=== PATIENT | male | born 1985 | race Caucasian/White ===

== ENCOUNTER 2016-07-09 12:19 | Emergency (ER) | payer MEDICARE, MEDICAID ==
[~2016-07-09 12:19] MED LIST: Acetaminophen/Hydrocodone PO; CLEO300C2 PO; DEXA4TA PO; GABA300C3 PO
[2016-07-09] MEDS ORDERED: DERMABOND TOPICAL SKIN ADHESIVE As Ordered ONE (12:59)
[2016-07-09] MEDS ORDERED: LIDOCAINE 2% W/EPIN INJ 20ML **PRES FREE As Ordered ONE (12:59)
[2016-07-09] MEDS ORDERED: NAPROXEN 250 MG TAB As Ordered ONE (12:59)
--- NOTE | 2016-07-09 13:40 | EDDOCDS ---
Physician Documentation [facility] Name: Refugio Murphy Age: 31 yrs Sex: Male : 1985 Arrival Date: 07/09/2016 Time: 12:19 Bed I6 / 28 Private MD: [facility], [place] - Adults Disposition: 07/09/16 13:24 Discharged to Home/Self Care. Impression: Laceration without foreign body of left upper arm, Laceration without foreign body of left forearm. - Condition is Stable. - Discharge Instructions: Stitches, Norma, or Adhesive Wound Closure. - Prescriptions for Ibuprofen 800 mg Oral Tablet - take 1 tablet by ORAL route every 8 hours As needed take with food; 30 tablet. - Medication Reconciliation, Local Pharmacy Hours form. - Follow up: Center - Adults [facility]; When: 1 - 2 days; Reason: Recheck today's complaints, Continuance of care. Follow up: Emergency Department; Reason: Worsening of conditions. - Problem is new. - Symptoms have improved. Historical: - Allergies: tylenol (Vomit); - Home Meds: 1. none - PMHx: GERD; - PSHx: Nerve Relocation; - Social history: Smoking status: Electronic cigarettes No barriers to communication noted, The patient speaks fluent Tongan, Speaks appropriately for age. - Family history: Not pertinent. - : The pt / caregiver states he / she is not on anticoagulants. Home medication list is obtained from the patient, Unable to Verify Home Med List with the patient / caregiver. - Exposure Risk Screening:: None identified. Vital Signs: 07/09 12:21 BP 132 / 70 RA Sitting (auto/reg); Pulse 63; Resp 18; Temp 97.4; Pulse Ox 100% on R/A; jrd Weight 83.46 kg / 184 lbs; Height 5 ft. 11 in. (180.34 cm); Pain 5/10; 13:28 BP 98 / 54; Pulse 46; Resp 18; Temp 98.5(TE); Pulse Ox 99% on R/A; Pain 0/10; jml1 12:21 Body Mass Index 25.66 (83.46 kg, 180.34 cm) jrd Procedures: 13:17 Wound care to laceration located on left arm was cleaned with Hibiclens, irrigated with ef1 normal saline, dressed with Neosporin, 4X4s, Patient tolerated well. 13:19 Laceration repair:. ef1 13:22 Laceration repair:. ef1 Laceration: 13:19 Wound Repair of 1cm ( 0.4in ) full thickness laceration to dorsal aspect of left ef1 forearm. Distal neuro/vascular/tendon intact. Anesthesia: Local anesthetic administered with 4 mls of 1% lidocaine w/ Epi. Wound prep: Moderate cleansing by nurse. Skin closed with 5 x 5-0 Nylon using Simple interrupted sutures. Dressed with Bacitracin, 4x4's. Patient tolerated well. 13:22 Wound Repair of 1cm ( 0.4in ) full thickness laceration to left bicep. Distal ef1 neuro/vascular/tendon intact. Anesthesia: None with None. Wound prep: Moderate cleansing by provider. Skin closed with thin layer Dermabond using sterile technique. Dressed with 4x4's. Patient tolerated well. MDM: 12:48 Lidocaine-Epinephrine 2 %-1:100,000 10 ml Infiltration once; to bedside ordered. ef1 12:48 Wound Care ordered. ef1 12:48 Naproxen 500 mg PO once; administer with food or milk ordered. ef1 12:49 Dermabond to bedside ordered. ef1 13:26 Bacitracin Ointment 500 unit/g 1 applic Topical in affected area once ordered. ef1 13:26 Dressing ordered. ef1 Administered Medications: 13:02 Drug: Naproxen 500 mg [naproxen 250 mg tablet (2 tabs)] Route: PO; dls 13:25 Drug: Lidocaine-Epinephrine 10 ml [lidocaine 20 mg/mL (2 %)-epinephrine 1:100,000 dls injection solution (10 mL)] Route: Infiltration; 13:35 Drug: Bacitracin 1 applic [bacitracin zinc 500 unit/gram topical ointment (1 applic)] dls Route: Topical; Site: affected area; Signatures: Heather Zarate RN RN dls Coretta Negrete PA-C PA-C ef1 Ankita Aguirre RN RN hs1 MTDD
--- NOTE | 2016-07-09 13:40 | EDDOCDS ---
Nurse's Notes [facility] [place] Name: Refugio Murphy Age: 31 yrs Sex: Male : 1985 Arrival Date: 07/09/2016 Time: 12:19 Bed I6 / 28 Private MD: [facility] - Adults Diagnosis: Laceration without foreign body of left upper arm;Laceration without foreign body of left forearm Presentation: 07/09 12:25 Presenting complaint: Patient states: laceration to upper arm and right forearm from hs1 storm window not being locked in place. Adult Sepsis Screening: The patient does not have new or worsening altered mentation. Patient's respiratory rate is less than 22. Systolic blood pressure is greater than 100. Patient has a qSOFA score of 0- Negative Sepsis Screen. Suicide/Homicide risk assessment- the patient denies having any suicidal and/or homicidal ideations and does not present with any other emotional, behavioral or mental health complaints. Status: Patient is not a director clinical information services or dependent. Transition of care: patient was not received from another setting of care. 12:25 Acuity: MICKI Level 4 hs1 12:25 Method Of Arrival: Walkin/Carried/Asstd hs1 Triage Assessment: 12:27 General: Appears in no apparent distress, Behavior is appropriate for age, cooperative. hs1 Pain: Location: left arm. HIV screening NA for this visit Offered previously. Musculoskeletal: No deficits noted. Injury Description: Laceration sustained to dorsal aspect of left forearm is 0.5 to 2.5 cm long, not bleeding, was sustained less than 30 minutes ago. is bleeding a small amount. Historical: - Allergies: tylenol (Vomit); - Home Meds: 1. none - PMHx: GERD; - PSHx: Nerve Relocation; - Social history: Smoking status: Electronic cigarettes No barriers to communication noted, The patient speaks fluent [place] Citizen, Speaks appropriately for age. - Family history: Not pertinent. - : The pt / caregiver states he / she is not on anticoagulants. Home medication list is obtained from the patient, Unable to Verify Home Med List with the patient / caregiver. - Exposure Risk Screening:: None identified. Screenin:38 Screening information is obtained from the patient. Primary language is [place] Citizen. Fall dls risk: No risks identified. Assistance ADL's: requires no assistance with activities of daily living. Abuse/DV Screen: The patient / caregiver reports he/she is: not in a situation that causes fear, pain or injury. Nutritional screening: No deficits noted. Advance Directives: Currently, there is no health care proxy. There is no active DNR order. There is no living will. There is no Power of Paraprofessional Aide Teacher. Advance directive information has not previously been placed in an [facility] medical record. home support is adequate. Assessment: 13:36 General: Appears in no apparent distress, slender, uncomfortable, well developed, well dls nourished, well groomed, Behavior is cooperative. Awake, alert, oriented. Skin warm and dry. Moves all extremities. Bilateral breath sounds clear. Respirations unlabored. Abdomen soft, non-tender. No apparent distress. The patient / caregiver is instructed regarding the plan of care and ED course. Vital Signs: 12:21 BP 132 / 70 RA Sitting (auto/reg); Pulse 63; Resp 18; Temp 97.4; Pulse Ox 100% on R/A; d Weight 83.46 kg; Height 5 ft. 11 in. (180.34 cm); Pain 5/10; 13:28 BP 98 / 54; Pulse 46; Resp 18; Temp 98.5(TE); Pulse Ox 99% on R/A; Pain 0/10; jml1 12:21 Body Mass Index 25.66 (83.46 kg, 180.34 cm) [facility] Vitals: 12:21 Log In Time: July 09, 2016 at 12:20. [facility] ED Course: 12:20 Patient visited by Refugio Leigh PCA. jrd 12:20 Patient moved to Waiting jrd 12:21 [facility] is Private Physician. jrd 12:24 Patient moved to Pre RCE jrd 12:26 Triage Initiated hs1 12:27 Patient moved to Triage 1 hs1 12:28 [facility] ef[facility] 12:28 Melissa Turk MD is Attending Physician. ef1 12:33 Patient visited by Coretta Negrete PA-C. ef1 12:52 Patient moved to I6 / bnb 12:56 Patient visited by Coretta Negrete PA-C. ef1 13:24 [facility] - [facility] is Referral Physician. ef1 13:29 Patient visited by Jeremias Santos. jml1 13:38 Accompanied by Friend, Patient has correct armband on for positive identification. Bed dls in low position. Call light in reach. 13:39 No IV's were initiated during this patient's visit. No procedures done that require dls assistance. Administered Medications: 13:02 Drug: Naproxen 500 mg [naproxen 250 mg tablet (2 tabs)] Route: PO; dls 13:25 Drug: Lidocaine-Epinephrine 10 ml [lidocaine 20 mg/mL (2 %)-epinephrine 1:100,000 dls injection solution (10 mL)] Route: Infiltration; 13:35 Drug: Bacitracin 1 applic [bacitracin zinc 500 unit/gram topical ointment (1 applic)] dls Route: Topical; Site: affected area; Order Results: There are currently no results for this order. Outcome: 13:24 Discharge ordered by Provider. ef1 13:37 The following High Risk Discharge criteria are identified: None. Discharged to home dls ambulatory. Condition: stable Condition: improved. Discharge instructions given to patient, Instructed on discharge instructions, follow up and referral plans. wound care, Demonstrated understanding of instructions, Pt was receptive of discharge instructions/ teaching. No special radiology studies were completed. 13:39 Discharge Assessment: Patient awake, alert and oriented x 3. No cognitive and/or dls functional deficits noted. Patient verbalized understanding of disposition instructions. patient administered narcotics - no. Property sent home with patient. 13:40 Patient left the ED. dls Signatures: Heather Zarate RN RN dls Coretta Negrete, PA-C PA-C ef1 Ankita Aguirre, RN RN hs1 Jeremias Santos l1 Refugio Leigh, OTHER SALES SUPPORT WORKER OTHER SALES SUPPORT WORKER jrd Ana Agarwal, OTHER SALES SUPPORT WORKER OTHER SALES SUPPORT WORKER bnb MTDD
--- NOTE | 2016-07-11 14:40 | EDDOCDS ---
Physician Documentation [facility] Name: Refugio Murphy Age: 31 yrs Sex: Male : 1985 Arrival Date: 07/09/2016 Time: 12:19 Bed I6 / 28 Private MD: [facility], [place] - Adults Disposition: 07/09/16 13:24 Discharged to Home/Self Care. Impression: Laceration without foreign body of left upper arm, Laceration without foreign body of left forearm. - Condition is Stable. - Discharge Instructions: Stitches, Norma, or Adhesive Wound Closure. - Prescriptions for Ibuprofen 800 mg Oral Tablet - take 1 tablet by ORAL route every 8 hours As needed take with food; 30 tablet. - Medication Reconciliation, Local Pharmacy Hours form. - Follow up: Center - Adults [facility]; When: 1 - 2 days; Reason: Recheck today's complaints, Continuance of care. Follow up: Emergency Department; Reason: Worsening of conditions. - Problem is new. - Symptoms have improved. Historical: - Allergies: tylenol (Vomit); - Home Meds: 1. none - PMHx: GERD; - PSHx: Nerve Relocation; - Social history: Smoking status: Electronic cigarettes No barriers to communication noted, The patient speaks fluent Libyan, Speaks appropriately for age. - Family history: Not pertinent. - : The pt / caregiver states he / she is not on anticoagulants. Home medication list is obtained from the patient, Unable to Verify Home Med List with the patient / caregiver. - Exposure Risk Screening:: None identified. Vital Signs: 07/09 12:21 BP 132 / 70 RA Sitting (auto/reg); Pulse 63; Resp 18; Temp 97.4; Pulse Ox 100% on R/A; jrd Weight 83.46 kg / 184 lbs; Height 5 ft. 11 in. (180.34 cm); Pain 5/10; 13:28 BP 98 / 54; Pulse 46; Resp 18; Temp 98.5(TE); Pulse Ox 99% on R/A; Pain 0/10; jml1 12:21 Body Mass Index 25.66 (83.46 kg, 180.34 cm) jrd Procedures: 13:17 Wound care to laceration located on left arm was cleaned with Hibiclens, irrigated with ef1 normal saline, dressed with Neosporin, 4X4s, Patient tolerated well. 13:19 Laceration repair:. ef1 13:22 Laceration repair:. ef1 Laceration: 13:19 Wound Repair of 1cm ( 0.4in ) full thickness laceration to dorsal aspect of left ef1 forearm. Distal neuro/vascular/tendon intact. Anesthesia: Local anesthetic administered with 4 mls of 1% lidocaine w/ Epi. Wound prep: Moderate cleansing by nurse. Skin closed with 5 x 5-0 Nylon using Simple interrupted sutures. Dressed with Bacitracin, 4x4's. Patient tolerated well. 13:22 Wound Repair of 1cm ( 0.4in ) full thickness laceration to left bicep. Distal ef1 neuro/vascular/tendon intact. Anesthesia: None with None. Wound prep: Moderate cleansing by provider. Skin closed with thin layer Dermabond using sterile technique. Dressed with 4x4's. Patient tolerated well. MDM: 12:48 Lidocaine-Epinephrine 2 %-1:100,000 10 ml Infiltration once; to bedside ordered. ef1 12:48 Wound Care ordered. ef1 12:48 Naproxen 500 mg PO once; administer with food or milk ordered. ef1 12:49 Dermabond to bedside ordered. ef1 13:26 Bacitracin Ointment 500 unit/g 1 applic Topical in affected area once ordered. ef1 13:26 Dressing ordered. ef1 14:01 [facility] Payment Agreement was scanned into [employer] and attached to record. 07/10 09:56 T-Sheet-- Draft Copy was scanned into [employer] and attached to record. gb Administered Medications: 07/09 13:02 Drug: Naproxen 500 mg [naproxen 250 mg tablet (2 tabs)] Route: PO; dls 13:25 Drug: Lidocaine-Epinephrine 10 ml [lidocaine 20 mg/mL (2 %)-epinephrine 1:100,000 dls injection solution (10 mL)] Route: Infiltration; 13:35 Drug: Bacitracin 1 applic [bacitracin zinc 500 unit/gram topical ointment (1 applic)] dls Route: Topical; Site: affected area; Signatures: Heather Zarate RN RN dls Corie Ortiz, Reg Reg gb Abhijit Landon, Reg Reg lg Coretta Negrete, PA-C PA-C ef1 Ankita Aguirre, RN RN hs1 The chart was reviewed and I authenticate all verbal orders and agree with the evaluation and treatment provided.Attachments: 14:01 [facility] Payment Agreement lg 07/10 09:56 T-Sheet-- Draft Copy gb Chart Complete MTDD
--- NOTE | 2016-07-11 14:41 | EDDOCDS ---
Physician Documentation [facility] Name: Refugio Murphy Age: 31 yrs Sex: Male : 1985 Arrival Date: 07/09/2016 Time: 12:19 Bed I6 / 28 Private MD: [facility], [place] - Adults Disposition: 07/09/16 13:24 Discharged to Home/Self Care. Impression: Laceration without foreign body of left upper arm, Laceration without foreign body of left forearm. - Condition is Stable. - Discharge Instructions: Stitches, Norma, or Adhesive Wound Closure. - Prescriptions for Ibuprofen 800 mg Oral Tablet - take 1 tablet by ORAL route every 8 hours As needed take with food; 30 tablet. - Medication Reconciliation, Local Pharmacy Hours form. - Follow up: Center - Adults [facility]; When: 1 - 2 days; Reason: Recheck today's complaints, Continuance of care. Follow up: Emergency Department; Reason: Worsening of conditions. - Problem is new. - Symptoms have improved. Historical: - Allergies: tylenol (Vomit); - Home Meds: 1. none - PMHx: GERD; - PSHx: Nerve Relocation; - Social history: Smoking status: Electronic cigarettes No barriers to communication noted, The patient speaks fluent Bhutanese, Speaks appropriately for age. - Family history: Not pertinent. - : The pt / caregiver states he / she is not on anticoagulants. Home medication list is obtained from the patient, Unable to Verify Home Med List with the patient / caregiver. - Exposure Risk Screening:: None identified. Vital Signs: 07/09 12:21 BP 132 / 70 RA Sitting (auto/reg); Pulse 63; Resp 18; Temp 97.4; Pulse Ox 100% on R/A; jrd Weight 83.46 kg / 184 lbs; Height 5 ft. 11 in. (180.34 cm); Pain 5/10; 13:28 BP 98 / 54; Pulse 46; Resp 18; Temp 98.5(TE); Pulse Ox 99% on R/A; Pain 0/10; jml1 12:21 Body Mass Index 25.66 (83.46 kg, 180.34 cm) jrd Procedures: 13:17 Wound care to laceration located on left arm was cleaned with Hibiclens, irrigated with ef1 normal saline, dressed with Neosporin, 4X4s, Patient tolerated well. 13:19 Laceration repair:. ef1 13:22 Laceration repair:. ef1 Laceration: 13:19 Wound Repair of 1cm ( 0.4in ) full thickness laceration to dorsal aspect of left ef1 forearm. Distal neuro/vascular/tendon intact. Anesthesia: Local anesthetic administered with 4 mls of 1% lidocaine w/ Epi. Wound prep: Moderate cleansing by nurse. Skin closed with 5 x 5-0 Nylon using Simple interrupted sutures. Dressed with Bacitracin, 4x4's. Patient tolerated well. 13:22 Wound Repair of 1cm ( 0.4in ) full thickness laceration to left bicep. Distal ef1 neuro/vascular/tendon intact. Anesthesia: None with None. Wound prep: Moderate cleansing by provider. Skin closed with thin layer Dermabond using sterile technique. Dressed with 4x4's. Patient tolerated well. MDM: 12:48 Lidocaine-Epinephrine 2 %-1:100,000 10 ml Infiltration once; to bedside ordered. ef1 12:48 Wound Care ordered. ef1 12:48 Naproxen 500 mg PO once; administer with food or milk ordered. ef1 12:49 Dermabond to bedside ordered. ef1 13:26 Bacitracin Ointment 500 unit/g 1 applic Topical in affected area once ordered. ef1 13:26 Dressing ordered. ef1 14:01 [facility] Payment Agreement was scanned into [employer] and attached to record. 07/10 09:56 T-Sheet-- Draft Copy was scanned into [employer] and attached to record. gb Administered Medications: 07/09 13:02 Drug: Naproxen 500 mg [naproxen 250 mg tablet (2 tabs)] Route: PO; dls 13:25 Drug: Lidocaine-Epinephrine 10 ml [lidocaine 20 mg/mL (2 %)-epinephrine 1:100,000 dls injection solution (10 mL)] Route: Infiltration; 13:35 Drug: Bacitracin 1 applic [bacitracin zinc 500 unit/gram topical ointment (1 applic)] dls Route: Topical; Site: affected area; Signatures: Heather Zarate RN RN dls Corie Ortiz, Reg Reg gb Abhijit Landon, Reg Reg lg Coretta Negrete, PA-C PA-C ef1 Ankita Aguirre, RN RN hs1 The chart was reviewed and I authenticate all verbal orders and agree with the evaluation and treatment provided.Attachments: 14:01 [facility] Payment Agreement lg 07/10 09:56 T-Sheet-- Draft Copy gb Chart Complete MTDD
--- NOTE | 2016-07-11 14:41 | EDDOCDS ---
Nurse's Notes [facility] Name: Refugio Murphy Age: 31 yrs Sex: Male : 1985 Arrival Date: 07/09/2016 Time: 12:19 Bed I6 / 28 Private MD: [facility] - Adults Diagnosis: Laceration without foreign body of left upper arm;Laceration without foreign body of left forearm Presentation: 07/09 12:25 Presenting complaint: Patient states: laceration to upper arm and right forearm from hs1 storm window not being locked in place. Adult Sepsis Screening: The patient does not have new or worsening altered mentation. Patient's respiratory rate is less than 22. Systolic blood pressure is greater than 100. Patient has a qSOFA score of 0- Negative Sepsis Screen. Suicide/Homicide risk assessment- the patient denies having any suicidal and/or homicidal ideations and does not present with any other emotional, behavioral or mental health complaints. Status: Patient is not a supervisor customer services or dependent. Transition of care: patient was not received from another setting of care. 12:25 Acuity: MICKI Level 4 hs1 12:25 Method Of Arrival: Walkin/Carried/Asstd hs1 Triage Assessment: 12:27 General: Appears in no apparent distress, Behavior is appropriate for age, cooperative. hs1 Pain: Location: left arm. HIV screening NA for this visit Offered previously. Musculoskeletal: No deficits noted. Injury Description: Laceration sustained to dorsal aspect of left forearm is 0.5 to 2.5 cm long, not bleeding, was sustained less than 30 minutes ago. is bleeding a small amount. Historical: - Allergies: tylenol (Vomit); - Home Meds: 1. none - PMHx: GERD; - PSHx: Nerve Relocation; - Social history: Smoking status: Electronic cigarettes No barriers to communication noted, The patient speaks fluent Irish, Speaks appropriately for age. - Family history: Not pertinent. - : The pt / caregiver states he / she is not on anticoagulants. Home medication list is obtained from the patient, Unable to Verify Home Med List with the patient / caregiver. - Exposure Risk Screening:: None identified. Screenin:38 Screening information is obtained from the patient. Primary language is Irish. Fall dls risk: No risks identified. Assistance ADL's: requires no assistance with activities of daily living. Abuse/DV Screen: The patient / caregiver reports he/she is: not in a situation that causes fear, pain or injury. Nutritional screening: No deficits noted. Advance Directives: Currently, there is no health care proxy. There is no active DNR order. There is no living will. There is no Power of Tool Designer. Advance directive information has not previously been placed in an [facility] medical record. home support is adequate. Assessment: 13:36 General: Appears in no apparent distress, slender, uncomfortable, well developed, well dls nourished, well groomed, Behavior is cooperative. Awake, alert, oriented. Skin warm and dry. Moves all extremities. Bilateral breath sounds clear. Respirations unlabored. Abdomen soft, non-tender. No apparent distress. The patient / caregiver is instructed regarding the plan of care and ED course. Vital Signs: 12:21 BP 132 / 70 RA Sitting (auto/reg); Pulse 63; Resp 18; Temp 97.4; Pulse Ox 100% on R/A; d Weight 83.46 kg; Height 5 ft. 11 in. (180.34 cm); Pain 5/10; 13:28 BP 98 / 54; Pulse 46; Resp 18; Temp 98.5(TE); Pulse Ox 99% on R/A; Pain 0/10; jml1 12:21 Body Mass Index 25.66 (83.46 kg, 180.34 cm) [facility] Vitals: 12:21 Log In Time: July 09, 2016 at 12:20. [facility] ED Course: 12:20 Patient visited by Refugio Leigh PCA. jrd 12:20 Patient moved to Waiting jrd 12:21 [facility] is Private Physician. jrd 12:24 Patient moved to Pre RCE jrd 12:26 Triage Initiated hs1 12:27 Patient moved to Triage 1 hs1 12:28 [facility] ef1 12:28 Melissa Turk MD is Attending Physician. ef1 12:33 Patient visited by Coretta Negrete PA-C. ef1 12:52 Patient moved to I6 / bnb 12:56 Patient visited by Coretta Negrete PA-C. ef1 13:24 [facility] is Referral Physician. ef1 13:29 Patient visited by Jeremias Santos. jml1 13:38 Accompanied by Friend, Patient has correct armband on for positive identification. Bed dls in low position. Call light in reach. 13:39 No IV's were initiated during this patient's visit. No procedures done that require dls assistance. 13:59 Patient name changed from Refugio\S\\S\Cousins\S\ to Refugio\Ana\ \S\Cousins. EDMS 14:01 [facility] Payment Agreement was scanned into [employer] and attached to record. 07/10 09:56 T-Sheet-- Draft Copy was scanned into [employer] and attached to record. gb Administered Medications: 07/09 13:02 Drug: Naproxen 500 mg [naproxen 250 mg tablet (2 tabs)] Route: PO; dls 13:25 Drug: Lidocaine-Epinephrine 10 ml [lidocaine 20 mg/mL (2 %)-epinephrine 1:100,000 dls injection solution (10 mL)] Route: Infiltration; 13:35 Drug: Bacitracin 1 applic [bacitracin zinc 500 unit/gram topical ointment (1 applic)] dls Route: Topical; Site: affected area; Order Results: There are currently no results for this order. Outcome: 13:24 Discharge ordered by Provider. ef1 13:37 The following High Risk Discharge criteria are identified: None. Discharged to home dls ambulatory. Condition: stable Condition: improved. Discharge instructions given to patient, Instructed on discharge instructions, follow up and referral plans. wound care, Demonstrated understanding of instructions, Pt was receptive of discharge instructions/ teaching. No special radiology studies were completed. 13:39 Discharge Assessment: Patient awake, alert and oriented x 3. No cognitive and/or dls functional deficits noted. Patient verbalized understanding of disposition instructions. patient administered narcotics - no. Property sent home with patient. 13:40 Patient left the ED. dls Signatures: Dispatcher [employer] EDMS Heather Zarate RN RN dls Corie Ortiz, Reg Reg gb Abhijit Landon, Reg Reg lg Coretta Negrete, PA-C PA-C ef1 Ankita Aguirre RN RN hs1 Jeremias Santos [facility] Refugio Leigh, GERIATRICIAN GERIATRICIAN jrd Ana Agarwal, GERIATRICIAN GERIATRICIAN bnb Chart Complete MTDD
== END 2016-07-09 13:40 | disposition home or self-care (01) ==
LOC: M ED 12:19
DX: S51.812A Laceration without foreign body of left forearm, initial encounter (principal); W23.0XXA Caught, crushed, jammed, or pinched between moving objects, initial encounter; Y92.019 Unspecified place in single-family (private) house as the place of occurrence of the external cause; Y93.89 Activity, other specified; Y99.8 Other external cause status; K21.9 Gastro-esophageal reflux disease without esophagitis; F17.200 Nicotine dependence, unspecified, uncomplicated; Z88.8 Allergy status to other drugs, medicaments and biological substances

== ENCOUNTER 2016-07-15 22:06 | Emergency (ER) | payer MEDICARE, MEDICAID ==
[2016-07-15] MEDS ORDERED: BACTRIM 160MG/800MG DS TAB As Ordered ONE (22:53)
[2016-07-15] MEDS ORDERED: ADACEL/BOOSTRIX VACCINE (DIPHTH/PERTUSS/ACELL/TETANUS)0.5ML SYR (90715) As Ordered ONE (22:53)
--- NOTE | 2016-07-15 23:05 | EDDOCDS ---
Physician Documentation [facility] Name: Refugio Murphy Age: 31 yrs Sex: Male : 1985 Arrival Date: 07/15/2016 Time: 22:06 Bed TR8 Private MD: Disposition: 07/15/16 22:54 Discharged to Home/Self Care. Impression: Cellulitis of left upper limb - with healing laceration. - Condition is Stable. - Discharge Instructions: Cellulitis, Laceration Care, Adult. - Prescriptions for Bactrim DS 800- 160 mg Oral Tablet - take 2 tablet by ORAL route every 12 hours for 7 days; 28 tablet. - Medication Reconciliation, Local Pharmacy Hours form. - Follow up: [facility] - Adults; When: 1 - 2 days. - Problem is an acute exacerbation. - Symptoms are unchanged. - Notes: return in 2 days for recheck. return earlier if worsening symptopms Historical: - Allergies: tylenol (Vomit); - Home Meds: 1. none - PMHx: GERD; - PSHx: Nerve Relocation; - Social history: Smoking status: Patient uses tobacco products, light tobacco smoker. No barriers to communication noted, The patient speaks fluent Jordanian. - Family history: Not pertinent. - : The pt / caregiver states he / she is not on anticoagulants. Home medication list is obtained from the patient. - Exposure Risk Screening:: None identified. Vital Signs: 07/15 22:08 BP 129 / 77; Pulse 84; Resp 18; Temp 97.6(O); Pulse Ox 99% on R/A; Weight 84.82 kg / alexy 187 lbs (R); Height 5 ft. 11 in. (180.34 cm) (R); Pain 6/10; 22:08 Body Mass Index 26.08 (84.82 kg, 180.34 cm) alexy MDM: 22:51 Tetanus- Diptheria-Acellular Pertussis 0.5 ml IM once; Routine booster 10-64yrs, >64 ml with child contact [employer] ordered. 22:51 Trimethoprim-Sulfamethoxazole (MRSA dose) 160 mg-800 mg (DS) 2 tabs PO once ordered. ml 23:04 Financial registration complete. [email or web address] Administered Medications: 22:57 Drug: Tetanus- Diptheria-Acellular Pertussis 0.5 ml [diphth,pertussis(acel),tetanus 2.5 rs3 Lf unit-8 mcg-5 Lf/0.5mL IM syringe (0.5 mL)] {Front Office Help: [employer]. Exp: 08/02/2018. Lot #: [id number]. } Route: IM; Site: left deltoid; 22:57 Drug: Trimethoprim-Sulfamethoxazole (MRSA dose) 2 tabs [sulfamethoxazole 800 rs3 mg-trimethoprim 160 mg tablet (2 tabs)] Route: PO; Signatures: Melissa Turk MD MD ml Gina Bonilla, RN RN kmg1 Samantha Walls RN RN rs3 Padma Maynard, Reg Reg [email or web address] MTDD
--- NOTE | 2016-07-15 23:05 | EDDOCDS ---
Nurse's Notes [facility] Name: Refugio Murphy Age: 31 yrs Sex: Male : 1985 Arrival Date: 07/15/2016 Time: 22:06 Bed TR8 Private MD: Diagnosis: Cellulitis of left upper limb-with healing laceration Presentation: 07/15 22:14 Presenting complaint: Patient states: redness around sutures site in L forearm. Adult rs3 Sepsis Screening: The patient does not have new or worsening altered mentation. Patient's respiratory rate is less than 22. Systolic blood pressure is greater than 100. Patient has a qSOFA score of 0- Negative Sepsis Screen. Suicide/Homicide risk assessment- the patient denies having any suicidal and/or homicidal ideations and does not present with any other emotional, behavioral or mental health complaints. Status: Patient is not a emergency services director or dependent. Transition of care: patient was not received from another setting of care. 22:14 Acuity: MICKI Level 4 rs3 22:14 Method Of Arrival: Walkin/Carried/Asstd rs3 Triage Assessment: 22:15 General: Appears in no apparent distress. Pain: Location: dorsal aspect of left rs3 forearm. HIV screening NA for this visit Offered previously. Historical: - Allergies: tylenol (Vomit); - Home Meds: 1. none - PMHx: GERD; - PSHx: Nerve Relocation; - Social history: Smoking status: Patient uses tobacco products, light tobacco smoker. No barriers to communication noted, The patient speaks fluent Cypriot. - Family history: Not pertinent. - : The pt / caregiver states he / she is not on anticoagulants. Home medication list is obtained from the patient. - Exposure Risk Screening:: None identified. Screenin:39 Screening information is obtained from the patient. Fall risk: No risks identified. kmg1 Assistance ADL's: requires no assistance with activities of daily living. Abuse/DV Screen: The patient / caregiver reports he/she is: not in a situation that causes fear, pain or injury. Nutritional screening: No deficits noted. Advance Directives: There is no active DNR order. home support is adequate. Assessment: 22:39 General: Appears in no apparent distress, comfortable, Behavior is appropriate for age, kmg1 cooperative, pleasant. Pain: Location: dorsal aspect of left forearm Pain currently is 6 out of 10 on a pain scale. Quality of pain is described as sharp. : Sutured area on left forearm intact. Red around wound in an area 4.5 X 5 cm. Denies drainage. 23:03 Reassessment: No change in prior assessment.. [facility] Vital Signs: 22:08 BP 129 / 77; Pulse 84; Resp 18; Temp 97.6(O); Pulse Ox 99% on R/A; Weight 84.82 kg (R); alexy Height 5 ft. 11 in. (180.34 cm) (R); Pain 6/10; 22:08 Body Mass Index 26.08 (84.82 kg, 180.34 cm) alexy Vitals: 22:08 Log In Time: July 15, 2016 at 22:08. alexy ED Course: 22:08 Patient visited by Alesha Guerra PCA. aelxy 22:08 Patient visited by Alesha Guerra PCA. alexy 22:08 Patient moved to Waiting alexy 22:09 Patient moved to Pre RCE alexy 22:15 Triage Initiated rs3 22:38 Patient moved to Triage 2 kmg1 22:39 The patient / caregiver is instructed regarding the plan of care and ED course. [facility] 22:43 Melissa Turk MD is Attending Physician. 22:43 Patient visited by Melissa Turk MD. 22:53 [facility] is Referral Physician. 23:02 Patient moved to TR8 [facility] 23:03 No IV's were initiated during this patient's visit. No procedures done that require [facility] assistance. Administered Medications: 22:57 Drug: Tetanus- Diptheria-Acellular Pertussis 0.5 ml [diphth,pertussis(acel),tetanus 2.5 rs3 Lf unit-8 mcg-5 Lf/0.5mL IM syringe (0.5 mL)] {Spice Grinder: [employer]. Exp: 08/02/2018. Lot #: [id number]. } Route: IM; Site: left deltoid; 22:57 Drug: Trimethoprim-Sulfamethoxazole (MRSA dose) 2 tabs [sulfamethoxazole 800 rs3 mg-trimethoprim 160 mg tablet (2 tabs)] Route: PO; Order Results: There are currently no results for this order. Outcome: 22:54 Discharge ordered by Provider. 23:03 Discharge Assessment: Patient awake, alert and oriented x 3. No cognitive and/or kmg1 functional deficits noted. Patient verbalized understanding of disposition instructions. Patient awake and alert. patient administered narcotics - no. The following High Risk Discharge criteria are identified: None. Discharged to home ambulatory. Condition: stable. Discharge instructions given to patient, Instructed on discharge instructions, follow up and referral plans. medication usage, Demonstrated understanding of instructions, medications, Pt was receptive of discharge instructions/ teaching. Prescriptions given X 1. No special radiology studies were completed. Property sent home with patient. 23:04 Patient left the ED. km Signatures: Melissa Turk MD MD ml Gina Bonilla, RN RN kmg1 Samantha Walls,NATALIE RN rs3 Alesha Guerra, GENNA SEARCH AND RESCUE OFFICER alexy SOPHIA
--- NOTE | 2016-07-18 00:05 | EDDOCDS ---
[facility]ation [facility] Name: Refugio [facility] Age: 31 yrs Sex: Male : 1985 Arrival Date: 07/15/2016 Time: 22:06 Bed TR8 Private MD: Disposition: 07/15/16 22:54 Discharged to Home/Self Care. Impression: Cellulitis of left upper limb - with healing laceration. - Condition is Stable. - Discharge Instructions: Cellulitis, Laceration Care, Adult. - Prescriptions for Bactrim DS 800- 160 mg Oral Tablet - take 2 tablet by ORAL route every 12 hours for 7 days; 28 tablet. - Medication Reconciliation, Local Pharmacy Hours form. - Follow up: [facility] - Adults; When: 1 - 2 days. - Problem is an acute exacerbation. - Symptoms are unchanged. - Notes: return in 2 days for recheck. return earlier if worsening symptopms Historical: - Allergies: tylenol (Vomit); - Home Meds: 1. none - PMHx: GERD; - PSHx: Nerve Relocation; - Social history: Smoking status: Patient uses tobacco products, light tobacco smoker. No barriers to communication noted, The patient speaks fluent [place] Islander. - Family history: Not pertinent. - : The pt / caregiver states he / she is not on anticoagulants. Home medication list is obtained from the patient. - Exposure Risk Screening:: None identified. Vital Signs: 07/15 22:08 BP 129 / 77; Pulse 84; Resp 18; Temp 97.6(O); Pulse Ox 99% on R/A; Weight 84.82 kg / alexy 187 lbs (R); Height 5 ft. 11 in. (180.34 cm) (R); Pain 6/10; 22:08 Body Mass Index 26.08 (84.82 kg, 180.34 cm) alexy MDM: 22:51 Tetanus- Diptheria-Acellular Pertussis 0.5 ml IM once; Routine booster 10-64yrs, >64 ml with child contact [employer] ordered. 22:51 Trimethoprim-Sulfamethoxazole (MRSA dose) 160 mg-800 mg (DS) 2 tabs PO once ordered. ml 23:04 Financial registration complete. [facility] 23:09 [facility] Payment Agreement was scanned into [employer] and attached to record. [email or web address] 07/16 10:50 T-Sheet-- Draft Copy was scanned into [employer] and attached to record. gb Administered Medications: 07/15 22:57 Drug: Tetanus- Diptheria-Acellular Pertussis 0.5 ml [diphth,pertussis(acel),tetanus 2.5 rs3 Lf unit-8 mcg-5 Lf/0.5mL IM syringe (0.5 mL)] {Senior Publications Specialist: [employer]. Exp: 08/02/2018. Lot #: [id number]. } Route: IM; Site: left deltoid; 22:57 Drug: Trimethoprim-Sulfamethoxazole (MRSA dose) 2 tabs [sulfamethoxazole 800 rs3 mg-trimethoprim 160 mg tablet (2 tabs)] Route: PO; Signatures: Melissa Turk MD MD Gina Bonilla RN RN kmg1 Corie Ortiz, Reg Reg gb Samantha Walls RN RN rs3 Padma Maynard, Reg Reg [email or web address] The chart was reviewed and I authenticate all verbal orders and agree with the evaluation and treatment provided.Attachments: 23:09 [facility] Payment Agreement [email or web address] 07/16 10:50 T-Sheet-- Draft Copy gb Chart Complete MTDD
--- NOTE | 2016-07-18 00:05 | EDDOCDS ---
Physician Documentation [facility] Name: Refugio Murphy Age: 31 yrs Sex: Male : 1985 Arrival Date: 07/15/2016 Time: 22:06 Bed TR8 Private MD: Disposition: 07/15/16 22:54 Discharged to Home/Self Care. Impression: Cellulitis of left upper limb - with healing laceration. - Condition is Stable. - Discharge Instructions: Cellulitis, Laceration Care, Adult. - Prescriptions for Bactrim DS 800- 160 mg Oral Tablet - take 2 tablet by ORAL route every 12 hours for 7 days; 28 tablet. - Medication Reconciliation, Local Pharmacy Hours form. - Follow up: [facility] - Adults; When: 1 - 2 days. - Problem is an acute exacerbation. - Symptoms are unchanged. - Notes: return in 2 days for recheck. return earlier if worsening symptopms Historical: - Allergies: tylenol (Vomit); - Home Meds: 1. none - PMHx: GERD; - PSHx: Nerve Relocation; - Social history: Smoking status: Patient uses tobacco products, light tobacco smoker. No barriers to communication noted, The patient speaks fluent Kittitian. - Family history: Not pertinent. - : The pt / caregiver states he / she is not on anticoagulants. Home medication list is obtained from the patient. - Exposure Risk Screening:: None identified. Vital Signs: 07/15 22:08 BP 129 / 77; Pulse 84; Resp 18; Temp 97.6(O); Pulse Ox 99% on R/A; Weight 84.82 kg / alexy 187 lbs (R); Height 5 ft. 11 in. (180.34 cm) (R); Pain 6/10; 22:08 Body Mass Index 26.08 (84.82 kg, 180.34 cm) alexy MDM: 22:51 Tetanus- Diptheria-Acellular Pertussis 0.5 ml IM once; Routine booster 10-64yrs, >64 ml with child contact [employer] ordered. 22:51 Trimethoprim-Sulfamethoxazole (MRSA dose) 160 mg-800 mg (DS) 2 tabs PO once ordered. ml 23:04 Financial registration complete. [facility] 23:09 [facility] Payment Agreement was scanned into [employer] and attached to record. [email or web address] 07/16 10:50 T-Sheet-- Draft Copy was scanned into [employer] and attached to record. gb Administered Medications: 07/15 22:57 Drug: Tetanus- Diptheria-Acellular Pertussis 0.5 ml [diphth,pertussis(acel),tetanus 2.5 rs3 Lf unit-8 mcg-5 Lf/0.5mL IM syringe (0.5 mL)] {Manager Installation: [employer]. Exp: 08/02/2018. Lot #: [id number]. } Route: IM; Site: left deltoid; 22:57 Drug: Trimethoprim-Sulfamethoxazole (MRSA dose) 2 tabs [sulfamethoxazole 800 rs3 mg-trimethoprim 160 mg tablet (2 tabs)] Route: PO; Signatures: Melissa Turk MD MD Gina Bonilla RN RN kmg1 Corie Ortiz, Reg Reg gb Samantha Walls RN RN rs3 Padma Maynard, Reg Reg [email or web address] The chart was reviewed and I authenticate all verbal orders and agree with the evaluation and treatment provided.Attachments: 23:09 [facility] Payment Agreement [email or web address] 07/16 10:50 T-Sheet-- Draft Copy gb Chart Complete MTDD
--- NOTE | 2016-07-18 00:05 | EDDOCDS ---
Nurse's Notes [facility] Name: Refugio Murphy Age: 31 yrs Sex: Male : 1985 Arrival Date: 07/15/2016 Time: 22:06 Bed TR8 Private MD: Diagnosis: Cellulitis of left upper limb-with healing laceration Presentation: 07/15 22:14 Presenting complaint: Patient states: redness around sutures site in L forearm. Adult rs3 Sepsis Screening: The patient does not have new or worsening altered mentation. Patient's respiratory rate is less than 22. Systolic blood pressure is greater than 100. Patient has a qSOFA score of 0- Negative Sepsis Screen. Suicide/Homicide risk assessment- the patient denies having any suicidal and/or homicidal ideations and does not present with any other emotional, behavioral or mental health complaints. Status: Patient is not a vocational services specialist or dependent. Transition of care: patient was not received from another setting of care. 22:14 Acuity: MICKI Level 4 rs3 22:14 Method Of Arrival: Walkin/Carried/Asstd rs3 Triage Assessment: 22:15 General: Appears in no apparent distress. Pain: Location: dorsal aspect of left rs3 forearm. HIV screening NA for this visit Offered previously. Historical: - Allergies: tylenol (Vomit); - Home Meds: 1. none - PMHx: GERD; - PSHx: Nerve Relocation; - Social history: Smoking status: Patient uses tobacco products, light tobacco smoker. No barriers to communication noted, The patient speaks fluent Togolese. - Family history: Not pertinent. - : The pt / caregiver states he / she is not on anticoagulants. Home medication list is obtained from the patient. - Exposure Risk Screening:: None identified. Screenin:39 Screening information is obtained from the patient. Fall risk: No risks identified. kmg1 Assistance ADL's: requires no assistance with activities of daily living. Abuse/DV Screen: The patient / caregiver reports he/she is: not in a situation that causes fear, pain or injury. Nutritional screening: No deficits noted. Advance Directives: There is no active DNR order. home support is adequate. Assessment: 22:39 General: Appears in no apparent distress, comfortable, Behavior is appropriate for age, kmg1 cooperative, pleasant. Pain: Location: dorsal aspect of left forearm Pain currently is 6 out of 10 on a pain scale. Quality of pain is described as sharp. : Sutured area on left forearm intact. Red around wound in an area 4.5 X 5 cm. Denies drainage. 23:03 Reassessment: No change in prior assessment.. [facility] Vital Signs: 22:08 BP 129 / 77; Pulse 84; Resp 18; Temp 97.6(O); Pulse Ox 99% on R/A; Weight 84.82 kg (R); alexy Height 5 ft. 11 in. (180.34 cm) (R); Pain 6/10; 22:08 Body Mass Index 26.08 (84.82 kg, 180.34 cm) alexy Vitals: 22:08 Log In Time: July 15, 2016 at 22:08. alexy ED Course: 22:08 Patient visited by Alesha Guerra PCA. alexy 22:08 Patient visited by Alesha Guerra PCA. alexy 22:08 Patient moved to Waiting alexy 22:09 Patient moved to Pre RCE alexy 22:15 Triage Initiated rs3 22:38 Patient moved to Triage 2 kmg1 22:39 The patient / caregiver is instructed regarding the plan of care and ED course. [facility] 22:43 Melissa Turk MD is Attending Physician. 22:43 Patient visited by Melissa Turk MD. 22:53 [facility] is Referral Physician. 23:02 Patient moved to TR8 km 23:03 No IV's were initiated during this patient's visit. No procedures done that require [facility] assistance. 23:09 [facility] Payment Agreement was scanned into [employer] and attached to record. [email or web address] 23:24 Patient name changed from Refugio\Ana\\S\Cousins\S\ to Refugio\Ana\ \S\Cousins. EDMS 07/16 10:50 T-Sheet-- Draft Copy was scanned into [employer] and attached to record. gb Administered Medications: 07/15 22:57 Drug: Tetanus- Diptheria-Acellular Pertussis 0.5 ml [diphth,pertussis(acel),tetanus 2.5 rs3 Lf unit-8 mcg-5 Lf/0.5mL IM syringe (0.5 mL)] {District Plant Engineer: [employer] [facility]. Exp: 08/02/2018. Lot #: [id number]. } Route: IM; Site: left deltoid; 22:57 Drug: Trimethoprim-Sulfamethoxazole (MRSA dose) 2 tabs [sulfamethoxazole 800 rs3 mg-trimethoprim 160 mg tablet (2 tabs)] Route: PO; Order Results: There are currently no results for this order. Outcome: 22:54 Discharge ordered by Provider. 23:03 Discharge Assessment: Patient awake, alert and oriented x 3. No cognitive and/or kmg1 functional deficits noted. Patient verbalized understanding of disposition instructions. Patient awake and alert. patient administered narcotics - no. The following High Risk Discharge criteria are identified: None. Discharged to home ambulatory. Condition: stable. Discharge instructions given to patient, Instructed on discharge instructions, follow up and referral plans. medication usage, Demonstrated understanding of instructions, medications, Pt was receptive of discharge instructions/ teaching. Prescriptions given X 1. No special radiology studies were completed. Property sent home with patient. 23:04 Patient left the ED. [facility] Signatures: Dispatcher [employer] EDMS Melissa Turk MD MD Gina Bonilla, RN RN kmg1 Corie Ortiz, Reg Reg gb Samantha Walls RN RN rs3 Alesha Guerra, PRINTING SUPERVISOR PRINTING SUPERVISOR Padma Mcclure, Reg Reg [email or web address] Chart Complete MTDD
== END 2016-07-15 23:04 | disposition home or self-care (01) ==
LOC: M ED 22:06
DX: L03.114 Cellulitis of left upper limb (principal); Z88.6 Allergy status to analgesic agent

== ENCOUNTER 2016-07-22 11:03 | Emergency (ER) | payer MEDICARE, MEDICAID ==
--- NOTE | 2016-07-22 11:47 | EDDOCDS ---
Nurse's Notes [facility] Name: Refugio Murphy Age: 31 yrs Sex: Male : 1985 Arrival Date: 07/22/2016 Time: 11:03 Bed 13 Private MD: Diagnosis: Encounter for removal of sutures Presentation: 07/22 11:08 Presenting complaint: Patient states: needs stitches out of right forearm- 9 days ago. [facility] Adult Sepsis Screening: The patient does not have new or worsening altered mentation. Patient's respiratory rate is less than 22. Systolic blood pressure is greater than 100. Patient has a qSOFA score of 0- Negative Sepsis Screen. Suicide/Homicide risk assessment- the patient denies having any suicidal and/or homicidal ideations and does not present with any other emotional, behavioral or mental health complaints. Status: Patient is not a service center technician or dependent. Transition of care: patient was not received from another setting of care. 11:08 Acuity: MICKI Level 5 [facility] 11:08 Method Of Arrival: Walkin/Carried/Asstd [facility] Triage Assessment: 11:10 General: Appears in no apparent distress, Behavior is appropriate for age, cooperative. [facility] Pain: Denies pain. HIV screening NA for this visit Offered previously. Historical: - Allergies: tylenol (Vomit); - Home Meds: 1. none - PMHx: GERD; Hypertension; - PSHx: Nerve Relocation; - Social history: Smoking status: Patient uses tobacco products, current every day smoker. No barriers to communication noted, The patient speaks fluent Romanian, Speaks appropriately for age. - Family history: Not pertinent. - : The pt / caregiver states he / she is not on anticoagulants. Home medication list is obtained from the patient. - Exposure Risk Screening:: None identified. Screenin:43 Screening information is obtained from the patient. Fall risk: No risks identified. [facility] Assistance ADL's: requires no assistance with activities of daily living. Abuse/DV Screen: The patient / caregiver reports he/she is: not in a situation that causes fear, pain or injury. Nutritional screening: No deficits noted. Advance Directives: There is. Advance Directives: There is no active DNR order. home support is adequate. Assessment: 11:43 General: Appears in no apparent distress, comfortable, Behavior is. Pain: Denies pain. [facility] Neurological: Level of Consciousness is awake, alert, Oriented to person, place. Respiratory: Airway is patent Respiratory effort is even, unlabored, Respiratory pattern is regular, symmetrical. Derm: Skin is pink, warm & dry. Vital Signs: 11:06 BP 127 / 64; Pulse 77; Resp 18; Pulse Ox 100% ; Weight 83.46 kg; Height 6 ft. 0 in. [facility] (182.88 cm); 11:06 Body Mass Index 24.95 (83.46 kg, 182.88 cm) [facility] Vitals: 11:06 Log In Time: July 22, 2016 at 11:05. [facility] ED Course: 11:05 Patient visited by Maida Roper PCA. [facility] 11:05 Patient moved to Waiting [facility] 11:06 Patient visited by Maida Roper PCA. [facility] 11:06 Patient moved to Pre RCE jl 11:09 Triage Initiated [facility] 11:28 Patient moved to 13 kr3 11:34 Liliya Bronson MD is Attending Physician. sd1 11:34 Patient visited by Liliya Bronson MD. sd1 11:43 The patient / caregiver is instructed regarding the plan of care and ED course. [facility] 11:43 No IV's were initiated during this patient's visit. No procedures done that require [facility] assistance. Order Results: There are currently no results for this order. Outcome: 11:35 Discharge ordered by Provider. sd1 11:43 Discharge Assessment: Patient awake, alert and oriented x 3. No cognitive and/or [facility] functional deficits noted. Patient verbalized understanding of disposition instructions. patient administered narcotics - no. The following High Risk Discharge criteria are identified: None. Discharged to home ambulatory, with significant other. Condition: good Condition: stable Condition: improved. Discharge instructions given to patient, Instructed on discharge instructions, follow up and referral plans. Demonstrated understanding of instructions, medications, Pt was receptive of discharge instructions/ teaching. No special radiology studies were completed. Property :Personal belongings accompany Pt. 11:47 Patient left the ED. [facility] Signatures: Liliya Bronson MD MD sd1 Tabitha Nation RN RN [facility] Bria FordRN RN 3 Annie Hobbs RN RN [facility] Jacquelin, Jordain, SUPERVISOR SAWMILL SUPERVISOR SAWMILL jlf MTDD
--- NOTE | 2016-07-22 11:47 | EDDOCDS ---
Physician Documentation [facility] Name: Refugio Murphy Age: 31 yrs Sex: Male : 1985 Arrival Date: 07/22/2016 Time: 11:03 Bed 13 Private MD: Disposition: 07/22/16 11:35 Discharged to Home/Self Care. Impression: Encounter for removal of sutures. - Condition is Stable. - Discharge Instructions: Suture Removal, Care After. - Medication Reconciliation, Local Pharmacy Hours form. - Follow up: Private Physician; When: As needed. - Problem is new. - Symptoms are resolved. Historical: - Allergies: tylenol (Vomit); - Home Meds: 1. none - PMHx: GERD; Hypertension; - PSHx: Nerve Relocation; - Social history: Smoking status: Patient uses tobacco products, current every day smoker. No barriers to communication noted, The patient speaks fluent Upper Sorbian, Speaks appropriately for age. - Family history: Not pertinent. - : The pt / caregiver states he / she is not on anticoagulants. Home medication list is obtained from the patient. - Exposure Risk Screening:: None identified. Vital Signs: 07/22 11:06 BP 127 / 64; Pulse 77; Resp 18; Pulse Ox 100% ; Weight 83.46 kg / 184 lbs; Height 6 ft. jlf 0 in. (182.88 cm); 11:06 Body Mass Index 24.95 (83.46 kg, 182.88 cm) jlf MDM: 11:40 Financial registration complete. Signatures: Liliya Bronson MD MD sd1 Tabitha Nation, RN RN [facility] Abhijit Landon, Landon [facility] Annie Hobbs,RN RN [facility] [place]
--- NOTE | 2016-07-24 12:47 | EDDOCDS ---
Physician Documentation [facility] Name: Refugio Murphy Age: 31 yrs Sex: Male : 1985 Arrival Date: 07/22/2016 Time: 11:03 Bed 13 Private MD: Disposition: 07/22/16 11:35 Discharged to Home/Self Care. Impression: Encounter for removal of sutures. - Condition is Stable. - Discharge Instructions: Suture Removal, Care After. - Medication Reconciliation, Local Pharmacy Hours form. - Follow up: Private Physician; When: As needed. - Problem is new. - Symptoms are resolved. Historical: - Allergies: tylenol (Vomit); - Home Meds: 1. none - PMHx: GERD; Hypertension; - PSHx: Nerve Relocation; - Social history: Smoking status: Patient uses tobacco products, current every day smoker. No barriers to communication noted, The patient speaks fluent Romansh, Speaks appropriately for age. - Family history: Not pertinent. - : The pt / caregiver states he / she is not on anticoagulants. Home medication list is obtained from the patient. - Exposure Risk Screening:: None identified. Vital Signs: 07/22 11:06 BP 127 / 64; Pulse 77; Resp 18; Pulse Ox 100% ; Weight 83.46 kg / 184 lbs; Height 6 ft. jlf 0 in. (182.88 cm); 11:06 Body Mass Index 24.95 (83.46 kg, 182.88 cm) [facility] MDM: 11:40 Financial registration complete. lg 11:50 [facility] Payment Agreement was scanned into [employer] and attached to record. lg 13:58 T-Sheet-- Draft Copy was scanned into [employer] and attached to record. klr Signatures: Liliya Bronson MD MD sd1 Tabitha Nation RN RN Abhijit Jeff, Landon Navarrete Annie Hobbs RN RN cjh Redder, Kathie klr The chart was reviewed and I authenticate all verbal orders and agree with the evaluation and treatment provided.Attachments: 11:50 [facility] Payment Agreement lg 13:58 T-Sheet-- Draft Copy klr Chart Complete MTDD
--- NOTE | 2016-07-24 12:47 | EDDOCDS ---
Nurse's Notes [facility] Name: Refugio Murphy Age: 31 yrs Sex: Male : 1985 Arrival Date: 07/22/2016 Time: 11:03 Bed 13 Private MD: Diagnosis: Encounter for removal of sutures Presentation: 07/22 11:08 Presenting complaint: Patient states: needs stitches out of right forearm- 9 days ago. [facility] Adult Sepsis Screening: The patient does not have new or worsening altered mentation. Patient's respiratory rate is less than 22. Systolic blood pressure is greater than 100. Patient has a qSOFA score of 0- Negative Sepsis Screen. Suicide/Homicide risk assessment- the patient denies having any suicidal and/or homicidal ideations and does not present with any other emotional, behavioral or mental health complaints. Status: Patient is not a service porter or dependent. Transition of care: patient was not received from another setting of care. 11:08 Acuity: MICKI Level 5 [facility] 11:08 Method Of Arrival: Walkin/Carried/Asstd [facility] Triage Assessment: 11:10 General: Appears in no apparent distress, Behavior is appropriate for age, cooperative. [facility] Pain: Denies pain. HIV screening NA for this visit Offered previously. Historical: - Allergies: tylenol (Vomit); - Home Meds: 1. none - PMHx: GERD; Hypertension; - PSHx: Nerve Relocation; - Social history: Smoking status: Patient uses tobacco products, current every day smoker. No barriers to communication noted, The patient speaks fluent Hungarian, Speaks appropriately for age. - Family history: Not pertinent. - : The pt / caregiver states he / she is not on anticoagulants. Home medication list is obtained from the patient. - Exposure Risk Screening:: None identified. Screenin:43 Screening information is obtained from the patient. Fall risk: No risks identified. [facility] Assistance ADL's: requires no assistance with activities of daily living. Abuse/DV Screen: The patient / caregiver reports he/she is: not in a situation that causes fear, pain or injury. Nutritional screening: No deficits noted. Advance Directives: There is. Advance Directives: There is no active DNR order. home support is adequate. Assessment: 11:43 General: Appears in no apparent distress, comfortable, Behavior is. Pain: Denies pain. [facility] Neurological: Level of Consciousness is awake, alert, Oriented to person, place. Respiratory: Airway is patent Respiratory effort is even, unlabored, Respiratory pattern is regular, symmetrical. Derm: Skin is pink, warm & dry. Vital Signs: 11:06 BP 127 / 64; Pulse 77; Resp 18; Pulse Ox 100% ; Weight 83.46 kg; Height 6 ft. 0 in. [facility] (182.88 cm); 11:06 Body Mass Index 24.95 (83.46 kg, 182.88 cm) [facility] Vitals: 11:06 Log In Time: July 22, 2016 at 11:05. [facility] ED Course: 11:05 Patient visited by Maida Roper PCA. [facility] 11:05 Patient moved to Waiting [facility] 11:06 Patient visited by Maida Roper PCA. [facility] 11:06 Patient moved to Pre RCE jl 11:09 Triage Initiated srm 11:28 Patient moved to 13 kr3 11:34 Liliya Bronson MD is Attending Physician. sd1 11:34 Patient visited by Liliya Bronson MD. sd1 11:43 The patient / caregiver is instructed regarding the plan of care and ED course. [facility] 11:43 No IV's were initiated during this patient's visit. No procedures done that require [facility] assistance. 11:49 Patient name changed from Refugio\S\\S\Cousins\S\ to Refugio\S\M\S\Cousins. EDMS 11:50 [facility] Payment Agreement was scanned into [employer] and attached to record. lg 13:58 T-Sheet-- Draft Copy was scanned into [employer] and attached to record. klr Order Results: There are currently no results for this order. Outcome: 11:35 Discharge ordered by Provider. sd1 11:43 Discharge Assessment: Patient awake, alert and oriented x 3. No cognitive and/or [facility] functional deficits noted. Patient verbalized understanding of disposition instructions. patient administered narcotics - no. The following High Risk Discharge criteria are identified: None. Discharged to home ambulatory, with significant other. Condition: good Condition: stable Condition: improved. Discharge instructions given to patient, Instructed on discharge instructions, follow up and referral plans. Demonstrated understanding of instructions, medications, Pt was receptive of discharge instructions/ teaching. No special radiology studies were completed. Property :Personal belongings accompany Pt. 11:47 Patient left the ED. [facility] Signatures: Dispatcher [employer] EDMS Liliya Bronson MD MD sd1 Tabitha Nation, RN RN Abhijit Jeff, Bria Zapien lg, RN RN kr3 Annie Hobbs RN RN [facility] Maida Roper PCA PCA jlf Redder, Kathie klr Chart Complete MTDRonak
--- NOTE | 2016-07-24 12:47 | EDDOCDS ---
Physician Documentation [facility] Name: Refugio Murphy Age: 31 yrs Sex: Male : 1985 Arrival Date: 07/22/2016 Time: 11:03 Bed 13 Private MD: Disposition: 07/22/16 11:35 Discharged to Home/Self Care. Impression: Encounter for removal of sutures. - Condition is Stable. - Discharge Instructions: Suture Removal, Care After. - Medication Reconciliation, Local Pharmacy Hours form. - Follow up: Private Physician; When: As needed. - Problem is new. - Symptoms are resolved. Historical: - Allergies: tylenol (Vomit); - Home Meds: 1. none - PMHx: GERD; Hypertension; - PSHx: Nerve Relocation; - Social history: Smoking status: Patient uses tobacco products, current every day smoker. No barriers to communication noted, The patient speaks fluent Polish, Speaks appropriately for age. - Family history: Not pertinent. - : The pt / caregiver states he / she is not on anticoagulants. Home medication list is obtained from the patient. - Exposure Risk Screening:: None identified. Vital Signs: 07/22 11:06 BP 127 / 64; Pulse 77; Resp 18; Pulse Ox 100% ; Weight 83.46 kg / 184 lbs; Height 6 ft. jlf 0 in. (182.88 cm); 11:06 Body Mass Index 24.95 (83.46 kg, 182.88 cm) [facility] MDM: 11:40 Financial registration complete. lg 11:50 [facility] Payment Agreement was scanned into [employer] and attached to record. lg 13:58 T-Sheet-- Draft Copy was scanned into [employer] and attached to record. klr Signatures: Liliya Bronson MD MD sd1 Tabitha Nation RN RN Abhijit Jeff, Lanodn Navarrete Annie Hobbs RN RN cjh Redder, Kathie klr The chart was reviewed and I authenticate all verbal orders and agree with the evaluation and treatment provided.Attachments: 11:50 [facility] Payment Agreement lg 13:58 T-Sheet-- Draft Copy klr Chart Complete MTDD
== END 2016-07-22 11:47 | disposition home or self-care (01) ==
LOC: M ED 11:03
DX: Z48.02 Encounter for removal of sutures (principal)

== ENCOUNTER → 2016-11-08 | Outpatient (REF) | payer MEDICARE, MEDICAID ==
[~2016-11-08] MED LIST changes: +GABA-282 PO; -GABA300C3 PO
[2016-11-08 14:21] LABS: BASO % 0.4 % (0.0-1.0); EOS # 0.2 K/mm3 (0.0-0.50); EOS % 3.8 % (0.0-3.0); LARGE UNSTAINED CELL # 0.1 K/mm3 (0.0-0.4); LARGE UNSTAINED CELL % 2.2 % (0.0-4.0); LYMPH # 1.9 K/mm3 (1.5-4.5); LYMPH % 34.7 % (24.0-44.0); MEAN CORPUSCULAR HEMOGLOBIN 32.5 pg (27.0-33.0); MEAN CORPUSCULAR HGB CONC 33.9 g/dl (32.0-36.5); MEAN CORPUSCULAR VOLUME 95.6 fl (80.0-96.0); MONO # 0.4 K/mm3 (0.0-0.8); NEUTROPHILS # 2.8 K/mm3 (1.8-7.7); NEUTROPHILS % 51.8 % (36.0-66.0); PLATELET COUNT, AUTOMATED 178 k/mm3 (150-450); RED CELL DISTRIBUTION WIDTH 12.8 % (11.5-14.5); WHITE BLOOD COUNT 5.5 K/mm3 (4.0-10.0)
[2016-11-08 22:31] LABS: ALBUMIN/GLOBULIN RATIO 1.29 (1.00-1.93); ALKALINE PHOSPHATASE 62 U/L (45-117); ALT/SGPT 64 U/L (12-78); ANION GAP 6 MEQ/L (8-16); AST/SGOT 35 U/L (15-37); BILIRUBIN,TOTAL 0.5 MG/DL (0.2-1.0); BLOOD UREA NITROGEN 18 MG/DL (7-18); CALCIUM LEVEL 8.8 MG/DL (8.5-10.1); CARBON DIOXIDE LEVEL 30 MEQ/L (21-32); CHLORIDE LEVEL 106 MEQ/L (98-107); CHOLESTEROL LEVEL 163 MG/DL (<200); CREATININE FOR GFR 1.11 MG/DL (0.70-1.30); GLOMERULAR FILTRATION RATE > 60.0 (>60); GLUCOSE, FASTING 85 MG/DL (70-105); POTASSIUM SERUM 5.1 MEQ/L (3.5-5.1); SODIUM LEVEL 142 MEQ/L (136-145); TOTAL PROTEIN 7.1 GM/DL (6.4-8.2); TRIGLYCERIDES LEVEL 91 MG/DL (<150)
== END ==
LOC: M LAB REF 13:13
PROVIDERS: ATTEND Family Medicine Addiction Medicine
DX: I10 Essential (primary) hypertension (principal); F34.1 Dysthymic disorder

== ENCOUNTER 2017-07-27 14:41 | Emergency (ER) | payer MEDICARE, MEDICAID | END 2017-07-27 16:25 | disposition home or self-care (01) | LOC: M ED 14:41 | DX: M79.661 Pain in right lower leg (principal); M79.662 Pain in left lower leg; F17.210 Nicotine dependence, cigarettes, uncomplicated; Z98.890 Other specified postprocedural states; Z88.8 Allergy status to other drugs, medicaments and biological substances | CPT/HCPCS: 93970 ==

== ENCOUNTER → 2018-05-23 | Outpatient (CLI) | payer MEDICARE, MEDICAID ==
[~2018-05-23] MED LIST changes: -Acetaminophen/Hydrocodone PO; -CLEO300C2 PO; -DEXA4TA PO; +E-Z-GAS II EFFERVESCENT PACKET (SODIUM BICARB./CITRIC ACID/SIMETHICONE) As Ordered; +E-Z-HD 98% w/w 340GM SUSP BTL As Ordered; +E-Z-PAQUE 96% w/w SUSP 176GM BTL As Ordered; -GABA-282 PO
[2018-05-23 09:37] LABS: HEMATOCRIT 44.9 % (42.0-52.0); HEMOGLOBIN 15.3 g/dl (13.5-17.5); MEAN CORPUSCULAR HEMOGLOBIN 31.2 pg (27.0-33.0); MEAN CORPUSCULAR HGB CONC 34.1 g/dl (32.0-36.5); MEAN CORPUSCULAR VOLUME 91.6 fl (80.0-96.0); PLATELET COUNT, AUTOMATED 167 10^3/uL (150-450); WHITE BLOOD COUNT 8.5 10^3/uL (4.0-10.0)
[2018-05-23 10:12] LABS: ALBUMIN 3.6 GM/DL (3.2-5.2); ALBUMIN/GLOBULIN RATIO 1.09 (1.00-1.93); ALKALINE PHOSPHATASE 68 U/L (45-117); ALT/SGPT 51 U/L (12-78); ANION GAP 8 MEQ/L (8-16); AST/SGOT 28 U/L (7-37); BILIRUBIN,TOTAL 0.7 MG/DL (0.2-1.0); BLOOD UREA NITROGEN 16 MG/DL (7-18); CALCIUM LEVEL 8.3 MG/DL (8.5-10.1); CARBON DIOXIDE LEVEL 26 MEQ/L (21-32); CHLORIDE LEVEL 108 MEQ/L (98-107); CREATININE FOR GFR 1.17 MG/DL (0.70-1.30); GLOMERULAR FILTRATION RATE > 60.0 (>60); GLUCOSE, FASTING 92 MG/DL (70-100); SODIUM LEVEL 142 MEQ/L (136-145); TOTAL PROTEIN 6.9 GM/DL (6.4-8.2)
== END ==
LOC: M RAD 08:19
DX: K44.9 Diaphragmatic hernia without obstruction or gangrene (principal); K21.9 Gastro-esophageal reflux disease without esophagitis; R11.11 Vomiting without nausea; R13.10 Dysphagia, unspecified
CPT/HCPCS: 74241

== ENCOUNTER 2018-07-11 07:33 | Day surgery (SDC) | payer MEDICARE, MEDICAID ==
[~2018-07-11] VITALS: Ht 182.9 cm; Wt 93.0 kg
[~2018-07-11 07:33] MED LIST changes: +Acetaminophen/Hydrocodone PO; +CLEO300C2 PO; +CYCL10TA PO; +DEXA4TA PO; -E-Z-GAS II EFFERVESCENT PACKET (SODIUM BICARB./CITRIC ACID/SIMETHICONE) As Ordered; -E-Z-HD 98% w/w 340GM SUSP BTL As Ordered; -E-Z-PAQUE 96% w/w SUSP 176GM BTL As Ordered; +GABA-843 PO; +IBUP-1022 PO; +LIDOCAINE 2% INJ 100 MG/5 ML SDV (FOR ANES.) As Ordered ONE; +OMEP40CA2 PO; +PROPOFOL 200 MG/20 ML VIAL As Ordered ONE
[2018-07-11] MEDS ORDERED: NS 1,000 ML IV ONE (09:45)
[2018-07-11] MEDS ORDERED: GLYCOPYRROLATE INJ 0.2 MG/ML 2 ML VIAL As Ordered ONE (10:04)
[2018-07-11] MEDS ORDERED: PROPOFOL 200 MG/20 ML VIAL As Ordered ONE (10:10)
--- NOTE | 2018-07-11 10:21 | ROOR ---
Patient Name: Refugio Murphy Procedure Date: 07/11/2018 9:56 AM Date of : 1985 Age: 33 Room: [facility] Gender: Male Note Status: Finalized Procedure: Upper GI endoscopy Indications: Dysphagia, Heartburn, Failure to respond to medical treatment Providers: Alexis BE MD Referring MD: ABHAY HOANG DO Requesting Provider: Medicines: Monitored Anesthesia Care Complications: No immediate complications. Procedure: Pre-Anesthesia Assessment: - The heart rate, respiratory rate, oxygen saturations, blood pressure, adequacy of pulmonary ventilation, and response to care were monitored throughout the procedure. The Endoscope was introduced through the mouth, and advanced to the second part of duodenum. The upper GI endoscopy was accomplished without difficulty. The patient tolerated the procedure well. Findings: The esophagus was normal. The stomach was normal. (very small hiatal hernia) The examined duodenum was normal. Biopsies were taken with a cold forceps in the proximal esophagus and in the mid esophagus for histology. The PEÑA capsule with delivery system was introduced through the mouth and advanced into the esophagus, such that the PEÑA pH capsule was positioned 36 cm from the incisors, which was 6 cm proximal to the GE junction. The PEÑA pH capsule was then deployed and attached to the esophageal mucosa. The delivery system was then withdrawn. Endoscopy was utilized for probe placement and diagnostic evaluation. The scope was reinserted to evaluate placement of the PEÑA capsule. Visualization showed the PEÑA capsule to be in an appropriate position. Impression: - Normal esophagus. - Normal stomach. (very small hiatal hernia) - Normal examined duodenum. - Biopsies were taken with a cold forceps for histology in the esophagus. - The PEÑA pH capsule was deployed. Recommendation: - Instructions: Avoid all reflux medications for next 48 hrs. (i.e. Avoid all the following for the next 48 hours: Prilosec/Omeprazole, Nexium, Prevacid/Lansoprazole, Dexilant, Zegerid/Omeprazole, Aciphex/Rabeprazole, Protonix/Pantoprazole, Zantac/Ranitidine, Pepcid/Famotidine, Tagamet). You may take tums, rolaids or maalox for severe symptoms, but try to limit this as well. Do not try to avoid your usual triggers for your symptoms for next 48 hrs. (If you have known "triggers" for your symptoms such as caffeine, fatty foods, laying down after meals etc, it is actually encouraged that you do try to produce your symptoms as much as possible over next 48 hrs.) - Telephone GI clinic for study results in 2 weeks. Alexis Be MD Alexis BE MD 07/11/2018 10:20:38 AM This report has been signed electronically. Number of Addenda: 0 Note Initiated On: 07/11/2018 9:56 AM Estimated Blood Loss: Estimated blood loss: none.
[2018-07-11 10:38] VITALS: BP 129/90
== END 2018-07-11 10:47 | disposition home or self-care (01) ==
LOC: M OPP 07:33
PROVIDERS: ATTEND Internal Medicine Gastroenterology
DX: R13.10 Dysphagia, unspecified (principal); R12 Heartburn; F17.210 Nicotine dependence, cigarettes, uncomplicated

== ENCOUNTER → 2018-09-02 | Outpatient (CLI) | payer MEDICARE, MEDICAID ==
[~2018-09-02] MED LIST changes: -LIDOCAINE 2% INJ 100 MG/5 ML SDV (FOR ANES.) As Ordered ONE; -PROPOFOL 200 MG/20 ML VIAL As Ordered ONE
--- NOTE | 2018-09-02 15:12 | REP ---
NUCLEAR GASTRIC EMPTYING SCAN: Following the oral administration of 1.02 mCi of technetium-99m sulfur colloid in two scrambled eggs and 6 ounces of water multiple images of the upper abdomen are performed in the anterior and posterior projections for a period of 90 minutes. At the end of 90 minutes 65% of the ingested activity has emptied from the stomach. T1/2 is calculated to be 71 minutes which is normal. IMPRESSION: Normal gastric emptying. Electronically Signed by Randy Mak MD 09/03/2018 01:00 P
== END ==
LOC: M RAD 12:25
PROVIDERS: ATTEND Surgery
DX: K21.9 Gastro-esophageal reflux disease without esophagitis (principal)
CPT/HCPCS: 78264; A9541

== ENCOUNTER 2018-12-12 23:42 | Emergency (ER) | payer MEDICARE, MEDICAID ==
[~2018-12-12] VITALS: Ht 182.9 cm; Wt 93.2 kg
[~2018-12-12 23:42] MED LIST changes: -OMEP40CA2 PO; +OMEP40CA97 PO
[2018-12-13] MEDS ORDERED: ROXI1TAB2 PO (00:02)
[2018-12-13] MEDS ORDERED: RANI15TA PO (00:02)
[2018-12-13 00:38] LABS: BASO % 0.3 % (0.0-1.0); EOS # 0.3 10^3/uL (0.0-0.50); EOS % 5.2 % (0.0-3.0); HEMATOCRIT 38.3 % (42.0-52.0); HEMOGLOBIN 13.1 g/dl (13.5-17.5); LYMPH # 1.5 10^3/uL (1.5-4.5); LYMPH % 23.8 % (24.0-44.0); MEAN CORPUSCULAR HEMOGLOBIN 32.1 pg (27.0-33.0); MEAN CORPUSCULAR HGB CONC 34.2 g/dl (32.0-36.5); MEAN CORPUSCULAR VOLUME 93.9 fl (80.0-96.0); MONO # 0.4 10^3/uL (0.0-0.8); NEUTROPHILS # 4.1 10^3/uL (1.8-7.7); NEUTROPHILS % 64.4 % (36.0-66.0); PLATELET COUNT, AUTOMATED 157 10^3/uL (150-450); RED BLOOD COUNT 4.08 10^6/uL (4.30-6.10); WHITE BLOOD COUNT 6.4 10^3/uL (4.0-10.0)
[2018-12-13] MEDS ORDERED: NS 1,000 ML IV ONE (00:45)
[2018-12-13] MEDS ORDERED: METOCLOPRAMIDE INJ 10MG/2ML VIAL (J2765) IV ONE (00:45)
[2018-12-13 00:53] LABS: ALBUMIN 3.3 GM/DL (3.2-5.2); ALT/SGPT 66 U/L (12-78); BILIRUBIN,DIRECT 0.2 MG/DL (0.0-0.2); BILIRUBIN,TOTAL 0.5 MG/DL (0.2-1.0); BLOOD UREA NITROGEN 12 MG/DL (7-18); CALCIUM LEVEL 8.3 MG/DL (8.5-10.1); CARBON DIOXIDE LEVEL 27 MEQ/L (21-32); CHLORIDE LEVEL 106 MEQ/L (98-107); CREATININE FOR GFR 0.92 MG/DL (0.70-1.30); GLOMERULAR FILTRATION RATE > 60.0 (>60); GLUCOSE, FASTING 122 MG/DL (70-100); LIPASE 36 U/L (73-393); POTASSIUM SERUM 3.6 MEQ/L (3.5-5.1); SODIUM LEVEL 142 MEQ/L (136-145); TOTAL PROTEIN 6.5 GM/DL (6.4-8.2)
[2018-12-13] MEDS ORDERED: ISOVUE-370 76% 100ML VIAL (Q9967) As Ordered ONE (01:50)
--- NOTE | 2018-12-13 04:12 | REPVR ---
EXAM: CT Abdomen and Pelvis With Contrast EXAM DATE/TIME: 12/13/2018 1:45 AM CLINICAL HISTORY: 33 years old, male; Abdominal pain; Other: Post op gastric SX; Additional info: Post op pain TECHNIQUE: Imaging protocol: Axial computed tomography images of the abdomen and pelvis with intravenous contrast. Coronal and sagittal reformatted images were created and reviewed. Radiation optimization: All CT scans at this facility use at least one of these dose optimization techniques: automated exposure control; mA and/or kV adjustment per patient size (includes targeted exams where dose is matched to clinical indication); or iterative reconstruction. Contrast material: ISO; Contrast volume: 100 ml; Contrast route: AC; COMPARISON: None FINDINGS: LUNG BASES: Mildly confluent bibasal pulmonary opacities are noted which may be secondary to atelectasis, however aspiration or pneumonia cannot be excluded. Clinical correlation with symptoms. Consider radiographic followup as clinically indicated. VASCULAR: Major vasculature is within normal limits. GI: No hiatal hernia. There is an indistinct soft tissue around the distal esophagus of uncertain significance. If there are symptoms, consider dedicated evaluation. There is some gas around the gastric cardia at the gastroesophageal junction which may be post surgical and could represent fundoplication. Clinical correlation is advised. There is some edema associated with this region of uncertain significance but could be related to recent postoperative change. There is a small amount of fluid and gas posterior to the fundus of the stomach, measuring 4 x 2 cm. This could represent postsurgical change. No obvious wall enhancement is seen to suggest that this is an abscess. Tiny bubbles of free intraperitoneal air are seen beneath the left diaphragm. This may be secondary to recent postsurgical change. The stomach contains some gas and fluid. The stomach is not sufficiently distended to evaluate wall thickening. The proximal duodenum is slightly distended with fluid and gas. Small bowel loops in the left mid abdomen are distended with gas and fluid, up to 3.3 cm in diameter. A focal point of transition is not seen. Differential could include ileus, peristalsis, or gastroenteritis, however if partial or developing obstruction is suspected, consider small bowel follow-through for further assessment. Scattered fecal material and gas within portions of the colon and rectum. No pericolonic inflammatory stranding. No evidence of acute diverticulitis. The appendix is not conclusively identified. No secondary inflammation seen. There is a percutaneous catheter extending from the right mid abdominal wall, with its tip terminating in the left upper quadrant abdomen. HEPATOBILIARY, PANCREAS, SPLEEN: Sagittal hepatic length is 17.9 cm. There is some perihepatic fluid. No calcified gallstones or biliary dilation. No pancreatic inflammation. Spleen not enlarged. ADRENALS, KIDNEYS, BLADDER, RETROPERITONEAL: Adrenals within normal limits. No hydronephrosis. Symmetric renal enhancement. No perinephric stranding. Mildly distended urinary bladder. No perivesical stranding. The prostate does not appear enlarged. No bladder wall thickening. MUSCULOSKELETAL: Tiny bubbles of subcutaneous gas are noted scattered throughout the entire body wall. A few bubbles of subcutaneous gas extending below the level of imaging, along the visualized upper scrotum. Small bubbles of intramuscular gas are noted along the left abdominal body wall. Tiny bubbles of gas are seen within the epigastric pericardial fat. These may be secondary to laparoscopic procedure. There is edema and a bubble of gas at the umbilicus which may be postsurgical. Clinical correlation for inflammation/infection. Degenerative changes of the left hip. No acute fracture. IMPRESSION: Scattered bubbles of soft tissue gas throughout the visualized abdominal and pelvic body wall, extending below the level of imaging into the scrotum and above the level of imaging, within the fat surrounding the heart. These may be postsurgical changes related to a laparoscopy. Clinical correlation is advised. Small amount of free fluid within the abdomen. There is fluid and a tiny bubbles of gas adjacent to the fundus of the stomach as well as a few tiny bubbles of free intraperitoneal air beneath the left diaphragm. These may be post surgical changes. Slight soft tissue indistinctness associated with the distal esophagus and below the diaphragm at the gastric cardia. This could represent postsurgical change and postsurgical soft tissue edema. If there is possibility for inflammation, consider dedicated evaluation such as endoscopy or upper GI. Other gastrointestinal findings and recommendations as above. Other incidental and non-emergent findings discussed above. Electronically signed by: Ivan Holloway On 12/13/2018 04:12:12 AM
[2018-12-13] MEDS ORDERED: SIMETHICONE 80 MG CHEW TAB PO ONE (05:15)
[2018-12-13 05:30] VITALS: BP 104/68
--- NOTE | 2018-12-15 13:47 | ED PDOC ---
Post-Departure Follow-Up dr morgan and dr beverly faxed formal report of ct abd/p for fu scoutg Melissa Turk MD Dec 15, 2018 13:47
== END 2018-12-13 05:39 | disposition home or self-care (01) ==
LOC: M ED 23:42
DX: G89.18 Other acute postprocedural pain (principal); R11.2 Nausea with vomiting, unspecified; R50.9 Fever, unspecified; K21.9 Gastro-esophageal reflux disease without esophagitis; Z88.6 Allergy status to analgesic agent; Z79.899 Other long term (current) drug therapy
CPT/HCPCS: 36415; 74177; 80048; 80076; 83605; 83690; 85025; 87040; 93041; 96374; 99285; J2765; Q9967

== ENCOUNTER 2019-04-03 14:43 | Emergency (ER) | payer MEDICAID, MEDICARE ==
[~2019-04-03] VITALS: Ht 182.9 cm; Wt 85.3 kg
[2019-04-03 14:43] VITALS: BP 119/60
[~2019-04-03 14:43] MED LIST changes: +RANI15TA PO; +ROXI1TAB2 PO
[2019-04-03 15:41] LABS: BASO # 0.1 10^3/uL (0.0-0.2); BASO % 0.7 % (0.0-1.0); EOS # 0.3 10^3/uL (0.0-0.5); EOS % 4.1 % (0.0-3.0); HEMATOCRIT 44.5 % (42.0-52.0); HEMOGLOBIN 15.1 g/dl (13.5-17.5); LYMPH % 26.5 % (24.0-44.0); MEAN CORPUSCULAR HEMOGLOBIN 31.4 pg (27.0-33.0); MEAN CORPUSCULAR HGB CONC 33.9 g/dl (32.0-36.5); MEAN CORPUSCULAR VOLUME 92.5 fl (80.0-96.0); MONO # 0.6 10^3/uL (0.0-0.8); MONO % 7.6 % (0.0-5.0); NEUTROPHILS # 4.5 10^3/uL (1.5-8.5); NEUTROPHILS % 60.8 % (36.0-66.0); PLATELET COUNT, AUTOMATED 238 10^3/uL (150-450); RED BLOOD COUNT 4.81 10^6/uL (4.30-6.10); WHITE BLOOD COUNT 7.5 10^3/uL (4.0-10.0)
[2019-04-03] MEDS ORDERED: ONDANSETRON 4MG/2ML VIAL (J2405) IV ONE (15:45)
[2019-04-03] MEDS ORDERED: ISOVUE-370 76% 100ML VIAL (Q9967) As Ordered ONE (15:46)
[2019-04-03 15:52] LABS: INR 1.05; PROTHROMBIN TIME 13.5 SECONDS (11.8-14.0)
[2019-04-03 15:54] LABS: PARTIAL THROMBOPLASTIN TIME 30.3 SECONDS (25.0-38.4)
[2019-04-03 16:10] LABS: ALBUMIN 3.5 GM/DL (3.2-5.2); BILIRUBIN,DIRECT 0.1 MG/DL (0.0-0.2); BILIRUBIN,TOTAL 0.4 MG/DL (0.2-1.0); TOTAL PROTEIN 6.7 GM/DL (6.4-8.2)
--- NOTE | 2019-04-03 16:49 | REP ---
Abdomen series: Three views. History: Abdomen pain. Rule out constipation versus small bowel obstruction. Comparison chest x-ray: August 10, 2011. Findings: Upright chest radiograph is normal. There is no evidence of infiltrate or free subdiaphragmatic air. Heart is not enlarged. Pulmonary vasculature is not increased. Supine and erect views of the abdomen show air and stool in a nondistended colon. There are a few loops of air-filled normal caliber small bowel in the central abdomen. No mass, organomegaly, or pathologic calcification is seen. Psoas margins and flank stripes are symmetric. Impression: No evidence of obstruction or ileus. Negative chest x-ray. Electronically Signed by David Almonte MD 04/03/2019 07:49 P
[2019-04-03] MEDS ORDERED: GLYCERIN ADULT SUPP PR ONE (17:15)
[2019-04-03] MEDS ORDERED: DULC10SU2 PR (18:11)
[2019-04-03] MEDS ORDERED: COLA100C5 PO (18:12)
[2019-04-03] MEDS ORDERED: MAGNESIUM CITRATE 300 ML BTL PO ONE (18:15)
== END 2019-04-03 18:26 | disposition home or self-care (01) ==
LOC: M ED 14:43
DX: K59.00 Constipation, unspecified (principal); F17.210 Nicotine dependence, cigarettes, uncomplicated
CPT/HCPCS: 36415; 74021; 80047; 80076; 81001; 82150; 83690; 85025; 85610; 85730; 93041; 96374; 99284; J2405

== ENCOUNTER 2019-11-11 21:01 | Emergency (ER) | payer MEDICARE, MEDICAID ==
[~2019-11-11] VITALS: Ht 182.9 cm; Wt 89.5 kg
[~2019-11-11 21:01] MED LIST changes: +COLA100C5 PO; +CYCL-707 PO; -CYCL10TA PO; +DULC10SU2 PR
[2019-11-11 21:02] VITALS: BP 107/74
[2019-11-11] MEDS ORDERED: CHAN1PAK13 (21:07)
== END 2019-11-11 21:40 | disposition home or self-care (01) ==
LOC: M ED 21:01
DX: Z11.59 Encounter for screening for other viral diseases (principal); W57.XXXA Bitten or stung by nonvenomous insect and other nonvenomous arthropods, initial encounter

== ENCOUNTER 2019-12-08 23:48 | Emergency (ER) | payer MEDICARE, MEDICAID ==
[~2019-12-08] VITALS: Ht 182.9 cm; Wt 95.5 kg
[~2019-12-08 23:48] MED LIST changes: +CHAN1PAK13; +GABA-282 PO; -GABA-843 PO
[2019-12-08 23:52] VITALS: BP 136/71
--- NOTE | 2019-12-09 08:03 | REP ---
Right foot series: Four views. History: Trauma. Findings: Four views of the right foot demonstrate normal bones, joints, and soft tissues. No fracture or subluxation is seen. Impression: Negative radiographs of the right foot. Electronically Signed by David Almonte MD 12/09/2019 07:55 A
== END 2019-12-09 01:17 | disposition home or self-care (01) ==
LOC: M ED 23:48
DX: S90.31XA Contusion of right foot, initial encounter (principal); W23.1XXA Caught, crushed, jammed, or pinched between stationary objects, initial encounter; Y92.009 Unspecified place in unspecified non-institutional (private) residence as the place of occurrence of the external cause

== ENCOUNTER → 2020-09-04 | Outpatient (CLI) | payer MEDICARE, MEDICAID | LOC: M LABSMTC 10:55 | PROVIDERS: ATTEND Anesthesiology | DX: Z01.812 Encounter for preprocedural laboratory examination (principal) ==

== ENCOUNTER 2020-09-09 06:58 | Day surgery (SDC) | payer MEDICARE, MEDICAID ==
[~2020-09-09] VITALS: Ht 182.9 cm; Wt 94.1 kg
[~2020-09-09 06:58] MED LIST changes: +LR 1,000 ML IV ONE
[2020-09-09] MEDS ORDERED: propofoL 200 MG/20 ML VIAL As Ordered ONE (07:53)
[2020-09-09] MEDS ORDERED: MIDAZOLAM INJ 2MG/2ML VIAL (J2250 PER 1MG) As Ordered ONE (07:53)
[2020-09-09] MEDS ORDERED: fentaNYL 100 MCG/2 ML INJECTION (J3010) As Ordered ONE (07:53)
[2020-09-09] MEDS ORDERED: LIDOCAINE 2% 100MG/5ML SDV (FOR ANES.) As Ordered ONE (07:53)
[2020-09-09] MEDS ORDERED: LIDOCAINE W/EPINEPHRINE 1% 20ML VIAL As Ordered ONE (08:07)
[2020-09-09] MEDS ORDERED: ONDANSETRON 4MG/2ML VIAL IV PRN (09:00)
[2020-09-09] MEDS ORDERED: HYDROMORPHONE HCL 0.5 MG/ 0.5 ML SYRINGE (J1170 PER 1) IV PRN (09:00)
[2020-09-09] MEDS ORDERED: fentaNYL 100 MCG/2 ML INJECTION (J3010) IV PRN (09:00)
[2020-09-09] MEDS ORDERED: NORCO, ANEXSIA 5/325MG TABLET (HYDROcodone/ACETAMINOPHEN) PO PRN (09:00)
[2020-09-09] MEDS ORDERED: oxyCODONE 5MG TAB PO PRN (09:00)
[2020-09-09] MEDS ORDERED: LR 1,000 ML IV SCH (09:00)
[2020-09-09 09:25] VITALS: BP 100/50
--- NOTE | 2020-09-09 14:13 | RO ---
OPERATIVE NOTE DATE OF OPERATION: 09/09/2020 PREOPERATIVE DIAGNOSIS: Right-sided flank lipoma. POSTOPERATIVE DIAGNOSIS: Right-sided flank lipoma. PROCEDURE: Excision of right-sided lipoma. SURGEON: Randy Al DO RUG DRY ROOM ATTENDANT: None. ANESTHESIA: IV sedation with 8 mL 1% local. COMPLICATIONS: None. INDICATIONS FOR PROCEDURE: The patient is a 35-year-old male who presents with a lump on his right side that was slightly tender to touch. He requested that it be excised. However, due to his severe anxiety he was unable to have this performed in the office. Because of that we elected to proceed with it in the operating room. Risks and benefits of the procedure not limited to but including bleeding, infection, damage to surrounding structures and need for further surgery were discussed in detail with the patient and informed consent was obtained, procedure planned. DESCRIPTION OF PROCEDURE: The patient was brought back to operating room 1. After sufficient sedation the right side was sterilely prepped and draped. Time out was done to confirm proper patient and proper procedure. Following that local was injected into the skin and subcutaneous tissue overlying the palpable lump. 3 cm incision was made using 15-blade scalpel. Blunt dissection was used to locate the lipoma. It was gently surrounded and excised all in one piece. Lipoma measured 2 cm in diameter. Once that was out interrupted 3-0 Vicryl stitch was used to reapproximate the subcutaneous tissues followed by running 4-0 Vicryl subcuticular suture to approximate the skin edges. Once this was completed the wound was cleaned and dried. Steri-Strips, 2 x 2 and Tegaderm were placed. This ended the procedure.
== END 2020-09-09 09:50 | disposition home or self-care (01) ==
LOC: M SDC 06:58
PROVIDERS: ATTEND Surgery
DX: D17.1 Benign lipomatous neoplasm of skin and subcutaneous tissue of trunk (principal); K21.9 Gastro-esophageal reflux disease without esophagitis; F90.9 Attention-deficit hyperactivity disorder, unspecified type; F32.9 Major depressive disorder, single episode, unspecified; F41.9 Anxiety disorder, unspecified; R56.9 Unspecified convulsions; F17.210 Nicotine dependence, cigarettes, uncomplicated; Z88.6 Allergy status to analgesic agent
CPT/HCPCS: 22902; 88304; J2250; J3010

== ENCOUNTER 2021-04-10 14:43 | Emergency (ER) | payer MEDICARE, MEDICAID ==
[~2021-04-10] VITALS: Ht 182.9 cm; Wt 97.2 kg
[~2021-04-10 14:43] MED LIST changes: -LR 1,000 ML IV ONE; +OMEP40CA4 PO; -OMEP40CA97 PO
--- OUTSIDE RECORDS SUMMARY | 2021-04-10 14:50 | CCD | Continuity of Care Document ---
Author Author Refugio SANCHEZ DPBryan Organization Unknown Address [address] [place] [address], [address] [place] [address] Phone [phone] Care Team Providers Care Straightedge Worker Name Role Phone Elliot Rhoades M.D.M [phone] Problems Active Problems Provider Date Osteochondropathy Bharat Sanchez DPM Onset: 10/16/2020 Tenosynovitis of foot Bharat Sanchez DPM Onset: 10/16/2020 Plantar fascial fibromatosis Bharat Sanchez DPM Onset: Social History Type Date Description Comments Sex Unknown ETOH Use Denies alcohol use Tobacco Use Start: Unknown Patient is a current smoker, smo kes every day Allergies and adverse reactions Active Allergies Criticality Reaction | Severity Comments Date Tylenol Unable to assess criticality 10/13/2020 Medications Active Medications SIG Qnty Indications Ordering Provide r Date Prednisone 10mg Tablets prednisone taper: take 4 tabs for 5 days, 3 tabs for days 6 and 7, 2 tabs for days 8 and 9, and 1 tab days 10 and 11 32tabs Bharat Sanchez DPM 02/28/20 21 Naproxen 500mg Tablets 1 tab twice daily with food 60tabs Bharat Sanchez DPM 10/13/2020 Medications Administered in Office Medication SIG Qnty Indications Ordering Provider Date Inject Triamcinolone Acetonide 10 ML, ND C 4355-3865-02 Injection Bharat strange DPM 10/27/2020 Inject Dexamthosone Phosphate 83081-818- 30 Injection Bharat Sanchez DPM 021 Immunizations Description No Information Available Vital Signs Date Vital Result Comment 10/13/2020 10:09am Height 72 inches 6'0" Weight 200.00 lb BP Systolic 122 mmHg BP Diastolic 88 mmHg Heart Rate 65 /min BMI (Body Mass Index) 27.1 kg/m2 Results Description No Information Available Procedures Date Code Description Status 02/27/2021 98970 Office/Outpatient Established SF MDM 10-19 Min Completed 12/15/2020 92483 Office/Outpatient Established SF MDM 10-19 Min Completed 10/27/2020 80367 Office/Outpatient Established SF MDM 10-19 Min Completed 10/27/2020 22461 Strapping Foot Or Ankle Complete d 10/27/2020 04646 Inject Tendon/Ligament/Cyst Comp leted 10/13/2020 35050 Office/Outpatient New Low MDM 30 -44 Minutes Completed 10/13/2020 13226 X-Ray Foot Complete Completed 10/13/2020 29205 Strapping Foot Or Ankle Complete d Medical Devices Description No Information Available Encounters Type Date Location Provider Dx Diagnosis Office Visit 02/27/2021 11:15a [place] [facility] Bharat Sanchez DPM M65.879 Other synovitis and tenosynovitis, unsp ankle and foot 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, unsp ankle and foot Office Visit 12/15/2020 10:15a [facility] Bharat Sanchez DPM M72.2 Plantar fascial fibromatosis Office Visit 10/27/2020 10:15a [facility] Bharat Sanchez DPM M72.2 Plantar fascial fibromatosis M65.871 Other synovitis and tenosyno vitis, right ankle and foot M72.2 Plantar fascial fibromatosis Office Visit 10/13/2020 10:15a [facility] Bharat Sanchez DPM 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, right ankle and foot M65.871 Other synovitis and tenosyno vitis, right ankle and foot Assessments Date Code Description Provider 02/27/2021 M65.879 Other synovitis and tenosynovitis, unspecified ankle and foot Bharat Sanchez DPM 02/27/2021 M84.879 Other disorders of c ontinuity of bone, unspecified ankle and foot Bharat Sanchez DPM 12/15/2020 M72.2 Plantar fascial fibromatosis And zeynep Sanchez, YULI 10/27/2020 M72.2 Plantar fascial fibromatosis And zeynep Sanchez, YULI 10/27/2020 M65.871 Other synovitis and tenosynoviti s, right ankle and foot Bharat Sanchez, YULI 10/27/2020 M72.2 Plantar fascial fibromatosis And zeynep Sanchez, YULI 10/13/2020 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, right ankle and foot Bharat Sanchez, YULI 10/13/2020 M65.871 Other synovitis and tenosynoviti s, right ankle and foot Bharat Sanchez DPM Plan of Treatment Future Appointment(s):* 03/30/2021 11:15 am - Bharat Sanchez DPM at [facility] [place] Functional Status Description No Information Available Mental Status Description No Information Available Referrals Description No Information Available
--- OUTSIDE RECORDS SUMMARY | 2021-04-10 14:50 | CCD | Continuity of Care Document ---
Author Author Refugio SANCHEZ DPBryan Organization Unknown Address [address] [place] [address], [address] [place] [address] Phone [phone] Care Team Providers Care Creative Perfumer Name Role Phone Elliot Rhoades M.D.M [phone] Problems Active Problems Provider Date Osteochondropathy Bharat [...] Inject Triamcinolone Acetonide 10 ML, ND C 1856-0961-97 Injection Bharat strange DPM 10/27/2020 Inject Dexamthosone Phosphate 81250-759- 30 Injection Bharat Sanchez DPM 021 Immunizations Description No Information Available Vital Signs Date Vital Result Comment 10/13/2020 10:09am Height 72 inches 6'0" Weight 200.00 lb BP Systolic 122 mmHg BP Diastolic 88 mmHg Heart Rate 65 /min BMI (Body Mass Index) 27.1 kg/m2 Results Description No Information Available Procedures Date Code Description Status 02/27/2021 84366 Office/Outpatient Established SF MDM 10-19 Min Completed 12/15/2020 24653 Office/Outpatient Established SF MDM 10-19 Min Completed 10/27/2020 45727 Office/Outpatient Established SF MDM 10-19 Min Completed 10/27/2020 74559 Strapping Foot Or Ankle Complete d 10/27/2020 74196 Inject Tendon/Ligament/Cyst Comp leted 10/13/2020 83828 Office/Outpatient New Low MDM 30 -44 Minutes Completed 10/13/2020 52768 X-Ray Foot Complete Completed 10/13/2020 19435 Strapping Foot Or Ankle Complete d Medical Devices Description No Information Available Encounters Type Date Location Provider Dx Diagnosis Office Visit 02/27/2021 11:15a [place] [facility] Bharat Sanchez DPM M65.879 Other synovitis and tenosynovitis, unsp ankle and foot 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, unsp ankle and foot Office Visit 12/15/2020 10:15a [place] [facility] Bharat Sanchez DPM M72.2 Plantar fascial fibromatosis Office Visit 10/27/2020 10:15a [place] [facility] Bharat Sanchez DPM M72.2 Plantar fascial fibromatosis M65.871 Other synovitis and tenosyno vitis, right ankle and foot M72.2 Plantar fascial fibromatosis Office Visit 10/13/2020 10:15a [place] [facility] Bharat Sanchez DPM M84.871 Other disorders [...] Sanchez DPM Plan of Treatment Future Appointment(s):* 05/04/2021 11:15 am - Bharat Sanchez DPM at [facility] Functional Status Description No Information Available Mental Status Description No Information Available Referrals Description No Information Available
--- OUTSIDE RECORDS SUMMARY | 2021-04-10 14:51 | CCD ---
Author Author [facility] Organization [facility] Address Unknown Phone Unavailable Care Team Providers Care Marketing And Development Coordinator Name Role Phone KEILY, F JUAN DO Unavailable Unavailable KEILY, F JUAN DO Unavailable Unavailable KEILY, F JUAN DO Unavailable Unavailable KEILY, F JUAN DO Unavailable Unavailable KEILY, F JUAN DO Unavailable Unavailable KEILY, F JUAN DO Unavailable Unavailable KEILY, F JUAN DO Unavailable Unavailable KEILY, F JUAN DO Unavailable Unavailable KEILY, F JUAN DO Unavailable Unavailable KEILY, F JUAN DO Unavailable Unavailable KEILY, F JUAN DO Unavailable Unavailable KEILY, F JUAN DO Unavailable Unavailable KEILY, F JUAN DO Unavailable Unavailable KEILY, F JUAN DO Unavailable Unavailable KEILY, F JUAN DO Unavailable Unavailable KEILY, F JUAN DO Unavailable Unavailable KEILY, F JUAN DO Unavailable Unavailable KEILY, F JUAN DO Unavailable Unavailable KEILY, F JUAN DO Unavailable Unavailable KEILY, F JUAN DO Unavailable Unavailable KEILY, F JUAN DO Unavailable Unavailable KEILY, F JUAN DO Unavailable Unavailable KEILY, F JUAN DO Unavailable Unavailable KEILY, F JUAN DO Unavailable Unavailable KEILY, F JUAN DO Unavailable Unavailable KEILY, F JUAN DO Unavailable Unavailable KEILY, F JUAN DO Unavailable Unavailable KEILY, F JUAN DO Unavailable Unavailable KEILY, F JUAN DO Unavailable Unavailable KEILY, F JUAN DO Unavailable Unavailable KELIY, F JUAN DO Unavailable Unavailable KEILY, F JUAN DO Unavailable Unavailable KEILY, F JUAN DO Unavailable Unavailable KEILY, F JUAN DO Unavailable Unavailable Barraclough, M Mikki PA Unavailable Unavailable Barraclough, M Mikki PA Unavailable Unavailable Barraclough, M Mikki PA Unavailable Unavailable Barraclough, M Mikki PA Unavailable Unavailable Barraclough, M Mikki PA Unavailable Unavailable Barraclough, M Mikki PA Unavailable Unavailable Barraclough, M Mikki PA Unavailable Unavailable Naveen ADAMES MD Unavailable Unavailable Naveen ADAMES MD Unavailable Unavailable Naveen ADAMES MD Unavailable Unavailable Naveen ADAMES MD Unavailable Unavailable Naveen ADAMES MD Unavailable Unavailable Naveen ADAMES MD Unavailable Unavailable Naveen ADAMES MD Unavailable Unavailable Naveen ADAMES MD Unavailable Unavailable Naveen ADAMES MD Unavailable Unavailable Naveen ADAMES MD Unavailable Unavailable Naveen ADAMES MD Unavailable Unavailable Naveen ADAMES MD Unavailable Unavailable Naveen ADAMES MD Unavailable Unavailable Naveen ADAMES MD Unavailable Unavailable Naveen ADAMES MD Unavailable Unavailable Naveen ADAMES MD Unavailable Unavailable Naveen ADAMES MD Unavailable Unavailable Naveen ADAMES MD Unavailable Unavailable Naveen ADAMES MD Unavailable Unavailable Naveen ADAMES MD Unavailable Unavailable Naveen ADAMES MD Unavailable Unavailable Naveen ADAMES MD Unavailable Unavailable Naveen ADAMES MD Unavailable Unavailable Naveen ADAMES MD Unavailable Unavailable Naveen ADAMES MD Unavailable Unavailable Naveen ADAMES MD Unavailable Unavailable ZACARIAS, H SARI MD Unavailable Unavailable Naveen ADAMES MD Unavailable Unavailable Naveen ADAMES MD Unavailable Unavailable ZACARIAS, H SARI JEROME Unavailable Unavailable ZACARIAS, H SARI MD Unavailable Unavailable ZACARIAS, H SARI MD Unavailable Unavailable ZACARIAS, H SARI MD Unavailable Unavailable ZACARIAS, H SARI MD Unavailable Unavailable ZACARIAS, H SARI MD Unavailable Unavailable ZACARIAS, H SARI MD Unavailable Unavailable ZACARIAS, H SARI MD Unavailable Unavailable ZACARIAS, H SARI JEROME Unavailable Unavailable ZACARIAS, H SARI MD Unavailable Unavailable ZACARIAS, H SARI MD Unavailable Unavailable ZACARIAS, H SARI MD Unavailable Unavailable ZACARIAS, H SARI MD Unavailable Unavailable ZACARIAS, H SARI MD Unavailable Unavailable ZACARIAS, H SARI MD Unavailable Unavailable ZACARIAS, H SARI MD Unavailable Unavailable ZACARIAS, H SARI MD Unavailable Unavailable ZACARIAS, H SARI JEROME Unavailable Unavailable ZACARIAS, H SARI MD Unavailable Unavailable ZACARIAS, H SARI MD Unavailable Unavailable ZACARIAS, H SARI JEROME Unavailable Unavailable ZACARIAS, H SARI MD Unavailable Unavailable ZACARIAS, H SARI MD Unavailable Unavailable ZACARIAS, H SARI MD Unavailable Unavailable ZACARIAS, H SARI MD Unavailable Unavailable ZACARIAS, H SARI JEROME Unavailable Unavailable ZACARIAS, H SARI JEROME Unavailable Unavailable ZACARIAS, H SARI JEROME Unavailable Unavailable ZACARIAS, H SARI JEROME Unavailable Unavailable ZACARIAS, H SARI JEROME Unavailable Unavailable ZACARIAS, H SARI JEROME Unavailable Unavailable ZACARIAS, Naveen GUO MD Unavailable Unavailable ZACARIAS, aNveen GUO MD Unavailable Unavailable ZACARIAS, H SARI JEROME Unavailable Unavailable ZACARIAS, Naveen GUO MD Unavailable Unavailable ZACARIAS, Naveen GUO MD Unavailable Unavailable ZACARIAS, H SARI JEROME Unavailable Unavailable ZACARIAS, H SARI JEROME Unavailable Unavailable ZACARIAS, H SARI JEROME Unavailable Unavailable ZACARIAS, H SARI JEROME Unavailable Unavailable Naveen ADAMES MD Unavailable Unavailable ZACARIAS, Naveen GUO MD Unavailable Unavailable Naveen ADAMES MD Unavailable Unavailable Naveen ADAMES MD Unavailable Unavailable ZACARIAS H SARI JEROME Unavailable Unavailable ZACARIAS, H SARI JEROME Unavailable Unavailable ZACARIAS H SARI JEROME Unavailable Unavailable Nathan SANCHEZ DPM Unavailable Unavailable Nathan SANCHEZ DPM Unavailable Unavailable Nathan SANCHEZ DPM Unavailable Unavailable DANIEL R ABBEY DPM Unavailable Unavailable DANIEL R ABBEY DPM Unavailable Unavailable MAJDAVION R ABBEY DPM Unavailable Unavailable MAJDAVION R ABBEY DPM Unavailable Unavailable DANIEL R ABBEY DPM Unavailable Unavailable DANIEL R ABBEY DPM Unavailable Unavailable MAJDAVION R ABBEY DPM Unavailable Unavailable MAJDAVION R ABBEY DPM Unavailable Unavailable DANIEL R ABBEY DPM Unavailable Unavailable MAJDAVION R ABBEY DPM Unavailable Unavailable MAJDAVION R ABBEY DPM Unavailable Unavailable MAJDAVION R ABBEY DPM Unavailable Unavailable DANIEL R ABBEY DPM Unavailable Unavailable MAJAK, R ABBEY DPM Unavailable Unavailable MAJAK, R ABBEY DPM Unavailable Unavailable MAJAK, R ABBEY DPM Unavailable Unavailable MAJAK, R ABBEY DPM Unavailable Unavailable MAJAK, R ABBEY DPM Unavailable Unavailable MAJAK, R ABBEY DPM Unavailable Unavailable MAJAK, R ABBEY DPM Unavailable Unavailable MAJAK, R ABBEY DPM Unavailable Unavailable MAJAK, R ABBEY DPM Unavailable Unavailable MAJAK, R ABBEY DPM Unavailable Unavailable MAJAK, R ABBEY DPM Unavailable Unavailable MAJAK, R ABBEY DPM Unavailable Unavailable MAJAK, R ABBEY DPM Unavailable Unavailable MAJAK, R ABBEY DPM Unavailable Unavailable MAJAK, R ABBEY DPM Unavailable Unavailable El-Dokla, Maricarmen Neal MD Unavailable Unavail able El-Dokla, Maricarmen Neal MD Unavailable Unavail able El-Dokla, Maricarmen Neal MD Unavailable Unavail able El-Dokla, Maricarmen Neal MD Unavailable Unavail able El-Dokla, Maricarmen Neal MD Unavailable Unavail able El-Dokla, Maricarmen Neal MD Unavailable Unavail able El-Dokla, Maricarmen Neal MD Unavailable Unavail able El-Dokla, Maricarmen Neal MD Unavailable Unavail able El-Dokla, Maricarmen Neal MD Unavailable Unavail able El-Dokla, Maricarmen Neal MD Unavailable Unavail able El-Dokla, Maricarmen Neal MD Unavailable Unavail able El-Dokla, Maricarmen Neal MD Unavailable Unavail able El-Dokla, Maricarmen Neal MD Unavailable Unavail able El-Dokla, Maricarmen Neal MD Unavailable Unavail able El-Dokla, Maricarmen Neal MD Unavailable Unavail able El-Dokla, Maricarmen Neal MD Unavailable Unavail able El-Dokla, Maricarmen Neal MD Unavailable Unavail able El-Dokla, Maricarmen Neal MD Unavailable Unavail able El-Dokla, Maricarmen Neal MD Unavailable Unavail able El-Dokla, Maricarmen Neal MD Unavailable Unavail able El-Dokla, Maricarmen Neal MD Unavailable Unavail able El-Dokla, Maricarmen Neal MD Unavailable Unavail able El-Dokla, Maricarmen Neal MD Unavailable Unavail able El-Dokla, Maricarmen Neal MD Unavailable Unavail able El-Dokla, Maricarmen Neal MD Unavailable Unavail able El-Dokla, Maricarmen Neal MD Unavailable Unavail able El-Dokla, Maricarmen Neal MD Unavailable Unavail able El-Dokla, Maricarmen Neal MD Unavailable Unavail able El-Dokla, Maricarmen Neal MD Unavailable Unavail able El-Dokla, Maricarmenhung Neal MD Unavailable Unavail able El-Dokla, Maricarmenhung Neal MD Unavailable Unavail able El-Dokla, Maricarmenhung Neal MD Unavailable Unavail able El-Dokla, Maricarmenhung Neal MD Unavailable Unavail able El-Dokla, Maricarmenhung Neal MD Unavailable Unavail able El-Dokla, Maricarmenhung Neal MD Unavailable Unavail able El-Dokla, Maricarmen Neal MD Unavailable Unavail able El-Dokla, Maricarmen Neal MD Unavailable Unavail able El-Dokla, Maricarmen Neal MD Unavailable Unavail able El-Dokla, Maricarmenhung Neal MD Unavailable Unavail able El-Dokla, Maricarmen Neal MD Unavailable Unavail able El-Dokla, Maricarmen Neal MD Unavailable Unavail able El-Dokla, Maricarmenhung Neal MD Unavailable Unavail able El-Dokla, Maricarmenhung Neal MD Unavailable Unavail able El-Dokla, Maricarmen Neal MD Unavailable Unavail able El-Dokla, Maricarmen Neal MD Unavailable Unavail able El-Dokla, Maricarmen Neal MD Unavailable Unavail able El-Dokla, Maricarmenhung Neal MD Unavailable Unavail able El-Dokla, Maricarmen Neal MD Unavailable Unavail able El-Dokla, Maricarmen Neal MD Unavailable Unavail able German Good MD Unavailable Unavailable German Good MD Unavailable Unavailable German Good MD Unavailable Unavailable German Good MD Unavailable Unavailable German Good MD Unavailable Unavailable German Good MD Unavailable Unavailable German Good MD Unavailable Unavailable German Good MD Unavailable Unavailable LatishaGerman barrera MD Unavailable Unavailable LatishaGerman barrera MD Unavailable Unavailable LatishaGerman barrera MD Unavailable Unavailable LatishaGerman barrera MD Unavailable Unavailable LatishaGerman barrera MD Unavailable Unavailable LatishaGerman barrera MD Unavailable Unavailable LatishaGerman barrera MD Unavailable Unavailable LatishaGerman barrera MD Unavailable Unavailable LatishaGerman barrera MD Unavailable Unavailable LatishaGerman barrera MD Unavailable Unavailable LatishaGerman barrera MD Unavailable Unavailable LatishaGerman barrera MD Unavailable Unavailable LatishaGreman barrera MD Unavailable Unavailable LatishaGerman barrera MD Unavailable Unavailable LatishaGerman barrera MD Unavailable Unavailable LatishaGerman barrera MD Unavailable Unavailable LatishaGerman MD Unavailable Unavailable LatishaGerman barrera MD Unavailable Unavailable Latisha, German Espinoza MD Unavailable Unavailable LatishaGerman barrera MD Unavailable Unavailable Latisha, German Espinoza MD Unavailable Unavailable LatishaGerman barrera MD Unavailable Unavailable LatishaGerman barrera MD Unavailable Unavailable LatishaGerman barrera MD Unavailable Unavailable LatishaGerman barrera MD Unavailable Unavailable LatishaGerman barrera MD Unavailable Unavailable German Good MD Unavailable Unavailable German Good MD Unavailable Unavailable LatishaGerman barrera MD Unavailable Unavailable LatishaGerman barrera MD Unavailable Unavailable LatishaGerman barrera MD Unavailable Unavailable LatishaGerman barrera MD Unavailable Unavailable LatishaGerman barrera MD Unavailable Unavailable LatishaGerman MD Unavailable Unavailable Rimma Aragon MD Unavailable Unavailable Rimma Aragon MD Unavailable Unavailable Rimma Aragon MD Unavailable Unavailable Rimma Aragon MD Unavailable Unavailable Rimma Aragon MD Unavailable Unavailable Rimma Aragon MD Unavailable Unavailable Rimma Aragon MD Unavailable Unavailable Rimma Aragon MD Unavailable Unavailable Rimma Aragon MD Unavailable Unavailable Rimma Aragon MD Unavailable Unavailable Rimma Aragon MD Unavailable Unavailable Rimma Aragon MD Unavailable Unavailable Rimma Aragon MD Unavailable Unavailable Rimma Aragon MD Unavailable Unavailable Rimma Aragon MD Unavailable Unavailable Rimma Aragon MD Unavailable Unavailable Rimma Aragon MD Unavailable Unavailable Rimma Aragon MD Unavailable Unavailable Rimma Aragon MD Unavailable Unavailable Rimma Aragon MD Unavailable Unavailable Rimma Aragon MD Unavailable Unavailable Rimma Aragon MD Unavailable Unavailable Rimma Aragon MD Unavailable Unavailable Rimma Aragon MD Unavailable Unavailable Rimma Aragon MD Unavailable Unavailable Rimma Aragon MD Unavailable Unavailable Rimma Aragon MD Unavailable Unavailable Rimma Aragon MD Unavailable Unavailable Rimma Aragon MD Unavailable Unavailable Rimma Aragon MD Unavailable Unavailable Rimma Aragon MD Unavailable Unavailable Rimma Aragon MD Unavailable Unavailable Rimma Aragon MD Unavailable Unavailable Rimma Aragon MD Unavailable Unavailable Rimma Aragon MD Unavailable Unavailable Rimma Aragon MD Unavailable Unavailable Rimma Aragon MD Unavailable Unavailable Rimma Aragon MD Unavailable Unavailable Rimma Aragon MD Unavailable Unavailable Rimma Aragon MD Unavailable Unavailable Rimma Aragon MD Unavailable Unavailable Rimma Aragon MD Unavailable Unavailable Rimma Aragon MD Unavailable Unavailable Rimma Aragon MD Unavailable Unavailable Rimma Aragon MD Unavailable Unavailable Rimma Aragon MD Unavailable Unavailable Rimma Aragon MD Unavailable Unavailable Rimma Aragon MD Unavailable Unavailable Rimma Aragon MD Unavailable Unavailable Rimma Aragon MD Unavailable Unavailable Rimma Aragon MD Unavailable Unavailable Rimma Aragon MD Unavailable Unavailable Rimma Aragon MD Unavailable Unavailable Rimma Aragon MD Unavailable Unavailable Rimma Aragon MD Unavailable Unavailable Rimma Aragon MD Unavailable Unavailable Rimma Aragon MD Unavailable Unavailable Rimma Aragon MD Unavailable Unavailable Rimma Aragon MD Unavailable Unavailable Rimma Aragon MD Unavailable Unavailable Rimma Aragon MD Unavailable Unavailable Rimma Aragon MD Unavailable Unavailable Rimma Aragon MD Unavailable Unavailable Rimma Aragon MD Unavailable Unavailable Rimma Aragon MD Unavailable Unavailable Rimma Aragon MD Unavailable Unavailable Rimma Aragon MD Unavailable Unavailable Rimma Aragon MD Unavailable Unavailable Rimma Aragon MD Unavailable Unavailable Rimma Aragon MD Unavailable Unavailable Rimma Aragon MD Unavailable Unavailable Rimma Aragon MD Unavailable Unavailable Rimma Aragon MD Unavailable Unavailable Rimma Aragon MD Unavailable Unavailable Rimma Aragon MD Unavailable Unavailable Rimma Aragon MD Unavailable Unavailable Margo O Jax JEROME Unavailable Unavailable Rimma Aragon MD Unavailable Unavailable Rimma Aragon MD Unavailable Unavailable DEMARTINI, M GORDON PA Unavailable Unavailable DEMARTINI, M GORDON PA Unavailable Unavailable DEMARTINI, M GORDON PA Unavailable Unavailable DEMARTINI, M GORDON PA Unavailable Unavailable DEMARTINI, M GODRON PA Unavailable Unavailable DEMARTINI, M GORDON PA Unavailable Unavailable DEMARTINI, M GORDON PA Unavailable Unavailable DEMARTINI, M GORDON PA Unavailable Unavailable DEMARTINI, M GORDON PA Unavailable Unavailable DEMARTINI, M GORDON PA Unavailable Unavailable DEMARTINI, M GORDON PA Unavailable Unavailable DEMARTINI, M GORDON PA Unavailable Unavailable DEMARTINI, M GORDON PA Unavailable Unavailable DEMARTINI, M GORDON PA Unavailable Unavailable DEMARTINI, M GORDON PA Unavailable Unavailable DEMARTINI, M GORDON PA Unavailable Unavailable DEMARTINI, M GORDON PA Unavailable Unavailable DEMARTINI, M GORDON PA Unavailable Unavailable DEMARTINI, M GORDON PA Unavailable Unavailable DEMARTINI, M GORDON PA Unavailable Unavailable DEMARTINI, M GORDON PA Unavailable Unavailable DEMARTINI, M GORDON PA Unavailable Unavailable DEMARTINI, M GORDON PA Unavailable Unavailable DEMARTINI, M GORDON PA Unavailable Unavailable DEMARTINI, M GORDON PA Unavailable Unavailable DEMARTINI, M GORDON PA Unavailable Unavailable DEMARTINI, M GORDON PA Unavailable Unavailable DEMARTINI, M GORDON PA Unavailable Unavailable DEMARTINI, M GORDON PA Unavailable Unavailable DEMARTINI, M GORDON PA Unavailable Unavailable DEMARTINI, M GORDON PA Unavailable Unavailable DEMARTINI, M GORDON PA Unavailable Unavailable DEMARTINI, M GORDON PA Unavailable Unavailable DEMARTINI, M GORDON PA Unavailable Unavailable DEMARTINI, M GORDON PA Unavailable Unavailable DEMARTINI, M GORDON PA Unavailable Unavailable DEMARTINI, M GORDON PA Unavailable Unavailable DEMARTINI, M GORDON PA Unavailable Unavailable DEMARTINI, M GORDON PA Unavailable Unavailable DEMARTINI, M GORDON PA Unavailable Unavailable DEMARTINI, M GORDON PA Unavailable Unavailable DEMARTINI, M GORDON PA Unavailable Unavailable DEMARTINI, M GORDON PA Unavailable Unavailable DEMARTINI, M GORDON PA Unavailable Unavailable DEMARTINI, M GORDON PA Unavailable Unavailable Rounds, M FRANCE YEAST CAKE CUTTER Unavailable Unavailable Rounds, M FRANCE YEAST CAKE CUTTER Unavailable Unavailable Rounds, M FRANCE YEAST CAKE CUTTER Unavailable Unavailable Rounds, M FRANCE YEAST CAKE CUTTER Unavailable Unavailable Rounds, M FRANCE YEAST CAKE CUTTER Unavailable Unavailable Rounds, M FRANCE YEAST CAKE CUTTER Unavailable Unavailable Rounds, M FRANCE YEAST CAKE CUTTER Unavailable Unavailable Rounds, M FRANCE YEAST CAKE CUTTER Unavailable Unavailable Rounds, M FRANCE YEAST CAKE CUTTER Unavailable Unavailable Rounds, M FRANCE YEAST CAKE CUTTER Unavailable Unavailable Rounds, M FRANCE YEAST CAKE CUTTER Unavailable Unavailable Rounds, M FRANCE YEAST CAKE CUTTER Unavailable Unavailable Rounds, M FRANCE YEAST CAKE CUTTER Unavailable Unavailable Rounds, M FRANCE YEAST CAKE CUTTER Unavailable Unavailable Rounds, M FRANCE YEAST CAKE CUTTER Unavailable Unavailable Rounds, M FRANCE YEAST CAKE CUTTER Unavailable Unavailable Rounds, M FRANCE YEAST CAKE CUTTER Unavailable Unavailable Rounds, M FRANCE YEAST CAKE CUTTER Unavailable Unavailable Rounds, M FRANCE YEAST CAKE CUTTER Unavailable Unavailable Rounds, M FRANCE YEAST CAKE CUTTER Unavailable Unavailable Rounds, M FRANCE YEAST CAKE CUTTER Unavailable Unavailable Rounds, M FRANCE YEAST CAKE CUTTER Unavailable Unavailable Rounds, M FRANCE YEAST CAKE CUTTER Unavailable Unavailable Rounds, M FRANCE YEAST CAKE CUTTER Unavailable Unavailable Rounds, M FRANCE YEAST CAKE CUTTER Unavailable Unavailable Rounds, M FRANCE YEAST CAKE CUTTER Unavailable Unavailable Rounds, M FRANCE YEAST CAKE CUTTER Unavailable Unavailable Rounds, M FRANCE YEAST CAKE CUTTER Unavailable Unavailable Rounds, M FRANCE YEAST CAKE CUTTER Unavailable Unavailable Rounds, M FRANCE YEAST CAKE CUTTER Unavailable Unavailable Rounds, M FRANCE YEAST CAKE CUTTER Unavailable Unavailable Rounds, M FRANCE YEAST CAKE CUTTER Unavailable Unavailable Rounds, M FRANCE YEAST CAKE CUTTER Unavailable Unavailable Rounds, M FRANCE YEAST CAKE CUTTER Unavailable Unavailable Rounds, M FRANCE YEAST CAKE CUTTER Unavailable Unavailable Rounds, M FRANCE YEAST CAKE CUTTER Unavailable Unavailable Rounds, M FRANCE YEAST CAKE CUTTER Unavailable Unavailable Rounds, M FRANCE YEAST CAKE CUTTER Unavailable Unavailable Rounds, M FRANCE YEAST CAKE CUTTER Unavailable Unavailable Rounds, M FRANCE YEAST CAKE CUTTER Unavailable Unavailable Rounds, M FRANCE YEAST CAKE CUTTER Unavailable Unavailable Rounds, M FRANCE YEAST CAKE CUTTER Unavailable Unavailable Rounds, M FRANCE YEAST CAKE CUTTER Unavailable Unavailable Rounds, M FRANCE YEAST CAKE CUTTER Unavailable Unavailable Rounds, M FRANCE YEAST CAKE CUTTER Unavailable Unavailable Rounds, M FRANCE YEAST CAKE CUTTER Unavailable Unavailable Rounds, M FRANCE YEAST CAKE CUTTER Unavailable Unavailable Rounds, M FRANCE YEAST CAKE CUTTER Unavailable Unavailable Rounds, M FRANCE YEAST CAKE CUTTER Unavailable Unavailable Rounds, M FRANCE YEAST CAKE CUTTER Unavailable Unavailable Rounds, M FRANCE YEAST CAKE CUTTER Unavailable Unavailable Rounds, M FRANCE YEAST CAKE CUTTER Unavailable Unavailable Rounds, M FRANCE YEAST CAKE CUTTER Unavailable Unavailable Rounds, M FRANCE YEAST CAKE CUTTER Unavailable Unavailable Rounds, M FRANCE YEAST CAKE CUTTER Unavailable Unavailable Rounds, M FRANCE YEAST CAKE CUTTER Unavailable Unavailable Rounds, M FRANCE YEAST CAKE CUTTER Unavailable Unavailable Rounds, M FRANCE YEAST CAKE CUTTER Unavailable Unavailable Rounds, M FRANCE YEAST CAKE CUTTER Unavailable Unavailable Rounds, M FRANCE YEAST CAKE CUTTER Unavailable Unavailable Rounds, M FRANCE YEAST CAKE CUTTER Unavailable Unavailable Rounds, M FRANCE YEAST CAKE CUTTER Unavailable Unavailable Rounds, M FRANCE YEAST CAKE CUTTER Unavailable Unavailable TURRIN, REBECCA Unavailable Unavailable TURRIN, REBECCA Unavailable Unavailable TURRIN, REBECCA Unavailable Unavailable TURRIN, REBECCA Unavailable Unavailable Teri, D Varghese PA Unavailable Unavailable Teri, D Varghese PA Unavailable Unavailable Teri, D Varghese PA Unavailable Unavailable Teri, D Varghese PA Unavailable Unavailable Teri, D Varghese PA Unavailable Unavailable Teri, D Varghese PA Unavailable Unavailable Teri, D Varghese PA Unavailable Unavailable Teri, D Varghese PA Unavailable Unavailable Teri, D Varghese PA Unavailable Unavailable Teri, D Varghese PA Unavailable Unavailable Teri, D Varghese PA Unavailable Unavailable Teri, D Varghese PA Unavailable Unavailable Teri, D Varghese PA Unavailable Unavailable Teri, D Varghese PA Unavailable Unavailable Teri, D Varghese PA Unavailable Unavailable Teri, D Varghese PA Unavailable Unavailable Teri, D Varghese PA Unavailable Unavailable Teri, D Varghese PA Unavailable Unavailable Teri, D Varghese PA Unavailable Unavailable Teri, D Varghese PA Unavailable Unavailable Teri, D Varghese PA Unavailable Unavailable Teri, D Varghese PA Unavailable Unavailable Teri, D Varghese PA Unavailable Unavailable Teri, D Varghese PA Unavailable Unavailable Teri, D Varghese PA Unavailable Unavailable Teri, D Varghese PA Unavailable Unavailable Teri, D Varghese PA Unavailable Unavailable Teri, D Varghese PA Unavailable Unavailable Teri, D Varghese PA Unavailable Unavailable Teri, D Varghese PA Unavailable Unavailable Teri, D Varghese PA Unavailable Unavailable Teri, D Varghese PA Unavailable Unavailable Teri, D Varghese PA Unavailable Unavailable Teri, D Varghese PA Unavailable Unavailable Teri, D Varghese PA Unavailable Unavailable Teri, D Varghese PA Unavailable Unavailable Teri, D Varghese PA Unavailable Unavailable Teri, D Varghese PA Unavailable Unavailable Teri, D Varghese PA Unavailable Unavailable Teri, D Varghese PA Unavailable Unavailable Teri, D Varghese PA Unavailable Unavailable Teri, D Varghese PA Unavailable Unavailable Teri, D Varghese PA Unavailable Unavailable Teri, D Varghese PA Unavailable Unavailable Teri, D Varghese PA Unavailable Unavailable Teri, D Varghese PA Unavailable Unavailable Teri, D Varghese PA Unavailable Unavailable Teri, D Varghese PA Unavailable Unavailable Teri, D Varghese PA Unavailable Unavailable Teri, D Varghese PA Unavailable Unavailable Teri, D Varghese PA Unavailable Unavailable Teri, D Varghese PA Unavailable Unavailable Teri, D Varghese PA Unavailable Unavailable Teri, D Varghese PA Unavailable Unavailable Teri, D Varghese PA Unavailable Unavailable Teri, D Varghese PA Unavailable Unavailable Teri, D Varghese PA Unavailable Unavailable Teri, D Varghese PA Unavailable Unavailable Teri, D Varghese PA Unavailable Unavailable Teri, D Varghese PA Unavailable Unavailable Teri, D Varghese PA Unavailable Unavailable Teri, D Varghese PA Unavailable Unavailable Teri, D Varghese PA Unavailable Unavailable Teri, D Varghese PA Unavailable Unavailable Teri, D Varghese PA Unavailable Unavailable Teri, D Varghese PA Unavailable Unavailable Teri, D Varghese PA Unavailable Unavailable Teri, D Varghese PA Unavailable Unavailable Naveen ADAMES MD Unavailable Unavailable Naveen ADAMES MD Unavailable Unavailable Naveen ADAMES MD Unavailable Unavailable Naveen ADAMES MD Unavailable Unavailable Naveen ADAMES MD Unavailable Unavailable Naveen ADAMES MD Unavailable Unavailable Naveen ADAMES MD Unavailable Unavailable Naveen ADAMES MD Unavailable Unavailable Naveen ADAMES MD Unavailable Unavailable Naveen ADAMES MD Unavailable Unavailable Naveen ADAMES MD Unavailable Unavailable Naveen ADAMES MD Unavailable Unavailable Naveen ADAMES MD Unavailable Unavailable Naveen ADAMES MD Unavailable Unavailable Naveen ADAMES MD Unavailable Unavailable Naveen ADAMES MD Unavailable Unavailable Naveen ADAMES MD Unavailable Unavailable Naveen ADAMES MD Unavailable Unavailable Naveen ADAMES MD Unavailable Unavailable Naveen ADAMES MD Unavailable Unavailable Naveen ADAMES MD Unavailable Unavailable Naveen ADAMES MD Unavailable Unavailable Naveen ADAMES MD Unavailable Unavailable Naveen ADAMES MD Unavailable Unavailable Naveen ADAMES MD Unavailable Unavailable Naveen ADAMES MD Unavailable Unavailable Naveen ADAMES MD Unavailable Unavailable Naveen ADAMES MD Unavailable Unavailable Naveen ADAMES MD Unavailable Unavailable Naveen ADAMES MD Unavailable Unavailable Naveen ADAMES MD Unavailable Unavailable Naveen ADAMES MD Unavailable Unavailable Naveen ADAMES MD Unavailable Unavailable Naveen ADAMES MD Unavailable Unavailable Naeven ADAMES MD Unavailable Unavailable Naveen ADAMES MD Unavailable Unavailable Naveen ADAMES MD Unavailable Unavailable ZACARIASNaveen MD Unavailable Unavailable ZACARIASNaveen MD Unavailable Unavailable ZACARIASNaveen MD Unavailable Unavailable ZACARIAS H SARI MD Unavailable Unavailable ZACARIAS H SARI MD Unavailable Unavailable ZACARIAS, H SARI MD Unavailable Unavailable ZACARIAS, H SARI MD Unavailable Unavailable ZACARIAS, H SARI MD Unavailable Unavailable ZACARIAS, H SARI MD Unavailable Unavailable ZACARIAS, H SARI MD Unavailable Unavailable ZACARIAS, H SARI MD Unavailable Unavailable ZACARIAS, H SARI MD Unavailable Unavailable ZACARIAS, H SARI MD Unavailable Unavailable ZACARIAS, H SARI MD Unavailable Unavailable ZACARIAS, H SARI MD Unavailable Unavailable ZACARIAS, H SAIR MD Unavailable Unavailable ZACARIAS H SARI MD Unavailable Unavailable ZACARIAS, H SARI MD Unavailable Unavailable ZACARIAS, H SARI MD Unavailable Unavailable ZACARIAS, H SARI MD Unavailable Unavailable ZACARIAS, H SARI MD Unavailable Unavailable ZACARIAS, H SARI MD Unavailable Unavailable ZACARIAS, H SARI MD Unavailable Unavailable ZACARIAS, H SARI MD Unavailable Unavailable ZACARIAS, H SARI MD Unavailable Unavailable ZACARIAS H SARI MD Unavailable Unavailable ZACARIAS, H SARI MD Unavailable Unavailable ZACARIAS, H SARI MD Unavailable Unavailable Naveen ADAMES MD Unavailable Unavailable ZACARIAS, H SARI MD Unavailable Unavailable AZCARIAS H SARI MD Unavailable Unavailable Naveen ADAMES MD Unavailable Unavailable ZACARIAS H SARI MD Unavailable Unavailable Naveen ADAMES MD Unavailable Unavailable Naveen ADAMES MD Unavailable Unavailable ZACARIAS H SARI MD Unavailable Unavailable Naveen ADAMES MD Unavailable Unavailable Naveen ADAMES MD Unavailable Unavailable ZACARIAS H SARI MD Unavailable Unavailable German Good MD Unavailable Unavailable German Good MD Unavailable Unavailable German Good MD Unavailable Unavailable German Good MD Unavailable Unavailable German Good MD Unavailable Unavailable German Good MD Unavailable Unavailable German Good MD Unavailable Unavailable German Good MD Unavailable Unavailable German Good MD Unavailable Unavailable German Good MD Unavailable Unavailable German Good MD Unavailable Unavailable German Good MD Unavailable Unavailable German Good MD Unavailable Unavailable German Good MD Unavailable Unavailable German Good MD Unavailable Unavailable German Good MD Unavailable Unavailable German Good MD Unavailable Unavailable German Good MD Unavailable Unavailable German Good MD Unavailable Unavailable German Good MD Unavailable Unavailable German Good MD Unavailable Unavailable German Good MD Unavailable Unavailable German Good MD Unavailable Unavailable German Good MD Unavailable Unavailable German Good MD Unavailable Unavailable German Good MD Unavailable Unavailable German Good MD Unavailable Unavailable German Good MD Unavailable Unavailable Latisha, F Alexis MD Unavailable Unavailable Latisha, F Alexis MD Unavailable Unavailable Latisha, F Alexis MD Unavailable Unavailable Latisha, F Alexis MD Unavailable Unavailable Latisha, F Alexis MD Unavailable Unavailable Latisha, F Alexis MD Unavailable Unavailable Latisha, F Alexis MD Unavailable Unavailable Latisha, F Alexis MD Unavailable Unavailable Latisha, F Alexis MD Unavailable Unavailable Latisha, F Alexis MD Unavailable Unavailable Latisha, F Alexis MD Unavailable Unavailable Latisha, F Alexis MD Unavailable Unavailable Latisha, F Alexis MD Unavailable Unavailable Latisha, F Alexis MD Unavailable Unavailable Re-disclosure Warning The records that you are about to access may contain information from federally-assisted alcohol or drug abuse programs. If such information is present, then the following federally mandated warning applies: This information has been disclosed to you from records protected by federal confidentiality rules (42 CFR part 2). The federal rules prohibit you from making any further disclosure of this information unless further disclosure is expressly permitted by the written consent of the person to whom it pertains or as otherwise permitted by 42 CFR part 2. A general authorization for the release of medical or other information is NOT sufficient for this purpose. The Federal rules restrict any use of the information to criminally investigate or prosecute any alcohol or drug abuse patient.The records that you are about to access may contain highly sensitive health information, the redisclosure of which is protected by Article 27-F of the [facility] Public Health law. If you continue you may have access to information: Regarding HIV / AIDS; Provided by facilities licensed or operated by the [facility] Office of Mental Health; or Provided by the [facility] Office for People With Developmental Disabilities. If such information is present, then the following [facility] mandated warning applies: This information has been disclosed to you from confidential records which are protected by state law. State law prohibits you from making any further disclosure of this information without the specific written consent of the person to whom it pertains, or as otherwise permitted by law. Any unauthorized further disclosure in violation of state law may result in a fine or [place] health care facility sentence or both. A general authorization for the release of medical or other information is NOT sufficient authorization for further disc losure. Family History Family Member Name Family Member Gender Family Member Status Date o f Status Description Data Source(s) Unknown Unknown Problem [facility] Encounters Encounter Providers Location Date Indications Data Source(s ) [facility]: [facility] 11[facility]15[facility]00 AM EDT [facility] Outpatient Attender: Varghese COLLINS [place] [facility] 06/2020 02:40:00 PM EDT [facility] 10:15:00 AM EDT [facility] Emergency Attender: REBECCA WHITMANConsultant: SARI MOSER MD 11/16/2020 10:04:00 PM EDT - 11/16/2020 10:27:00 PM EDT [facility] Patient discharged. Outpatient Attender: Varghese COLLINS [place] [facility] 06/2020 11:00:00 AM EDT [facility] ([facility] Outpatient Attender: Varghese COLLINS [place] [facility] 11:15:00 AM EDT [facility] 10/15 10:15:00 AM EDT [facility] ([facility] Emergency Attender: JUAN KITCHEN DOConsultant: SARI MOSER MD 10/23/2020 02:40:00 AM EDT - 10/23/2020 05:03:00 AM EDT [facility] Patient discharged. Outpatient Attender: ABBEY SANCHEZ [facility] 09/16 10:15:00 AM EDT [facility] ([facility] Outpatient 09/27/2020 12:00:00 AM [facility] Outpatient 08/23/2020 12:00:00 AM [facility] Outpatient Attender: FRANCE Gonzalez NP [place] [facility] 08/22/2020 0 3:00:00 PM EST [facility] ([facility] Outpatient Attender: Varghese COLLINS [place] [facility] 02:15:00 PM EST [facility] Outpatient Attender: Mari Burton MD 07/12/2020 12:00:00 AM [facility] Outpatient 07/11/2020 12:00:00 AM [facility] Outpatient Attender: FRANCE Gonzalez NP [place] [facility] 05/23/2020 1 2:00:00 PM EST [facility] ([facility] Outpatient Attender: Alexis Good MDConsultant: SARI MOSER MD 05/17/2020 03:06:00 PM [facility] - 05/17/2020 03:06:00 PM [facility] Outpatient Attender: FRANCE Gonzalez NP [place] [facility] 05/09/2020 0 1:00:00 PM EST [facility] ([facility] Outpatient Referrer: GORDON COLLINS 05/09/2020 12:00: 00 AM [facility] Outpatient Referrer: GORDON COLLINS 05/04/2020 12:00: 00 AM [facility] Outpatient Attender: Alexis Good MDConsultant: SARI MOSER MD 05/03/2020 11:27:00 AM EST - 05/03/2020 11:27:00 AM [facility] Outpatient Attender: Alexis Good MD Family Practice 05/03/2020 1 0:30:00 AM EST [facility] ([facility]) Outpatient Attender: FRANCE Gonzalez NP [place] [facility] 05/02/2020 1 0:00:00 AM EST [facility] ([facility] Outpatient Referrer: GORDON COLLINS 04/27/2020 12:00:00 AM EST PT rt foot and lumbar [facility] PT rt foot and lumbar Outpatient Referrer: GORDON COLLINS 04/20/2020 12:00: 00 AM [facility] Outpatient Attender: Mikki COLLINS [place] [facility] 04/15/2020 02:20:00 PM EDT [facility] ([facility] Outpatient Referrer: GORDON COLLINS 04/11/2020 12:00:00 AM EDT PT rt foot and lumbar [facility] PT rt foot and lumbar Outpatient Referrer: GORDON COLLINS 04/07/2020 12:00: 00 AM EDT [facility] Outpatient Referrer: GORDON COLLINS 04/01/2020 12:00:00 AM EDT PT rt foot and lumbar [facility] PT rt foot and lumbar Outpatient Attender: Jax Aragon MD [facility] 03/29/2020 01:45:00 PM EDT [facility] ([facility] ) Outpatient Attender: GORDON COLLINS [id number] 03/18/2020 12:00:00 AM EDT Pain in right foot [facility] Pain in right foot Outpatient Referrer: GORDON COLLINS 03/18/2020 12:00:00 AM EDT Pain in right [facility] Pain in right foot Outpatient Referrer: GORDON COLLINS 03/18/2020 12:00:00 AM EDT Pain in right foot [facility] Pain in right foot Outpatient Attender: SARI ADAMES MD [facility] 03:20:00 PM EDT [facility] ([facility] Immunizations Vaccine Date Status Description Data Source(s) COVID-19 VACC, MRNA(PFIZER)/PF 11/29/2020 12:00:00 AM EDT completed [facility] COVID-19 VACCINE Pfizer 11/29/2020 12:00:00 AM EDT completed [facility] Vaccine Series Complete: YESThis Data wa s Submitted to [facility] Via [employer]. COVID-19 VACC, MRNA(PFIZER)/PF 11/08/2020 12:00:00 AM EDT completed [facility] COVID-19 VACCINE Pfizer 11/08/2020 12:00:00 AM EDT completed [facility] Vaccine Series Complete: NOThis Data was Submitted to [facility] [employer]. Medications Medication Brand Name Start Date Product Form Dose Route Admi nistrative Instructions Pharmacy Instructions Status Indications Reaction Description Data Source(s) Prednisone 10 MG Oral Tablet Prednisone 02/27/2021 12:00:00 AM EDT active [facility] ([facility] No Active Medications 12/15/2020 12:00:00 AM EDT active [facility] Cephalexin 500 MG Oral Capsule Cephalexin 11/15/2020 12:00:00 AM EDT ORAL completed [facility] ([facility] Mupirocin 0.02 MG/MG Topical Ointment Mupirocin 11/03/2020 12:00:00 AM EDT completed [facility] Inject Triamcinolone Acetonide 10 ML, [facility] 7588-7675-82 10/27/2020 12:00:00 AM EDT completed [facility] ([facility] Medication administered onsite Inject Dexamthosone Phosphate 70342-009-29 10/27/2020 12:00:00 A M EDT completed [facility] ([facility] Medication administered onsite Naproxen 500 MG Oral Tablet Naproxen 10/13/2020 12:00:00 AM EDT active [facility] ([facility] Fluconazole 100 MG Oral Tablet [Diflucan] Diflucan 08/22/2020 1 2:00:00 AM EST ORAL completed [facility] ([facility] Nystatin 971508 UNT/ML Topical Cream Nystatin 08/22/2020 12:00:00 AM EST completed [facility] ([facility] cetirizine hydrochloride 10 MG Oral Tablet HM Cetirizine HCL 05/23/2020 12:00:00 AM EST ORAL active [facility] gabapentin 100 MG Oral Capsule Gabapentin 05/02/2020 12:00:00 AM EST ORAL completed [facility] ([facility] Nystatin 913461 UNT/ML / Triamcinolone Acetonide 1 MG/ ML Topical Cream Nystatin-Triamcinolone 04/15/2020 12:00:00 AM EDT completed [facility] ([facility] methylPREDNISolone 4 MG Oral Tablet Therapy Pack (MEDROL (PA K)) 5973-8448-06 03/18/2020 12:00:00 AM EDT active follow package [facility] Amitriptyline Hydrochloride 50 MG Oral Tablet Amitriptyline HCL 03/01/2020 12:00:00 AM EDT active M [facility] ([facility] Prednisone 10 MG Oral Tablet Prednisone 11/26/2019 12:00:00 AM EDT ORAL completed [facility] ([facility] Misc. Devices (DURABLE MEDICAL EQUIPMENT SEE SIG) [facility] [id number] 08/03/2016 12:00:00 AM EST aborted Use as directed. Continuum Tens Unit Dx: [facility] Insurance Providers Payer name Policy type / Coverage type Policy ID Covered constitution party ID Covered constitution party's relationship to morris Policy [place] Plan Information MEDICARE [id number] SP [id number] A MEDICARE A [id number] Self [id number] A MEDICARE [id number] SP [id number] N87 MEDICARE A [id number] Self [id number] N87 MEDICAID M [id number] Self [id number] Medicare P [id number] S [id number] A Medicaid S [id number] S [id number] MEDICAID [id number] SP [id number] [place] [id number] SP [id number] [place] [id number] SP [id number] C MEDICAID [id number] SP [id number] Medicare C [id number] SELF [id number] N87 DME Jurisdiction A [facility] C [id number] SELF [id number] MEDICAID [id number] SP [id number] [place] Med[place] Part [place] [id number] Self [id number] Medicare [place] Primary [id number] Self [id number] [place] Med[place] B [id number] Self [id number] [place] Medicare Primary [id number] Self [id number] MEDICARE OUTPATIENT M [id number] S [id number] MEDICAID W [id number] MEDICAID -O/P EMERGENCY ROOM [id number] 18 [id number] A MEDICARE PART A -O/P [id number] 18 [id number] MEDICAID -PHYSICIAN [id number] [place]ID [place] [id number] MEDICARE PART A [facility] [id number] 18 [id number] MEDICAID -PHYSICIAN [id number] MEDICAID -CLINIC [id number] [place] [id number] Medicaid [facility] S D [id number] SELF [id number] NGS MEDICARE MASS O [id number] S [id number] MEDICAID M [id number] S [id number] MEDICARE C [id number] S [id number] A MEDICAID -O/P [id number] MEDICARE PART A -O/P [id number] Problems, Conditions, and Diagnoses Code Display Name Description Problem Type Effective Dates Data Source(s) S28126 Nicotine dependence, cigarettes, uncompl icated Nicotine dependence, cigarettes, uncomplicated Diagnosis 11/16/2020 10:04:[address] [facility] L723 Sebaceous cyst Sebaceous cyst Diagnosis 11/16/2020 10:04: 00 PM EDT [facility] [id number] Furuncle of left lower limb Furuncle of left lower collado b Diagnosis 11/16/2020 10:04:00 PM EDT [facility] Y[address] or not applicable Unspecified place or not applicable Diagnosis 10/23/2020 02:40:00 AM EDT [facility] [id number] Overexertion from prolonged static or awkward postures, initial encounter Overexertion from prolonged static or aw kward postures, initial encounter Diagnosis 10/23/2020 02:40:00 AM EDT [facility] Q30514 Nicotine dependence, unspecified, uncomp licated Nicotine dependence, unspecified, uncomplicated Diagnosis 10/23/2020 02:40:00 AM EDT [facility] [id number] Strain of muscle, fascia and tendon at n filemon level, initial encounter Strain of muscle, fascia and tendon at neck level, initial encounter Diagnosis 10/23/2020 02:40:00 AM EDT [facility] M542 Cervicalgia Cervicalgia Diagnosis 10/23/2020 02:40:00 AM EDT [facility] I781 Nevus, non-neoplastic Nevus, non-neoplastic Diagnosis 05/17/2020 03:06:00 PM [facility] PT rt foot and lumbar PT rt foot and lumbar Diagnosis 04/27/2020 02:00:00 PM [facility] M54.16 Radiculopathy, lumbar region Radiculopathy, lumbar reg ion Diagnosis 03/18/2020 10:54:53 AM [facility] M79.671 Pain in right foot Pain in right foot Diagnosis 07/2019 10:54:53 AM [facility] M72.2 Plantar fascial fibromatosis Plantar fascial fibromato sis Problem 11/10/2020 12:00:00 AM EDT [facility] ([facility] M65.871 Tenosynovitis of foot Tenosynovitis of foot Problem 10/16/2020 12:00:00 AM EDT [facility] ([facility] M84.871 Osteochondropathy Osteochondropathy Problem 10/16/2020 12:00:00 AM EDT [facility] ([facility] [id number] Non-neoplastic nevus Non-neoplastic nevus Problem 05/03/2020 12:00:00 AM EST [facility] ([facility]) Surgeries/Procedures Procedure Description Date Indications Data Source(s) OFFICE OUTPATIENT VISIT 10 MINUTES 02/27/2021 12:00:00 AM EDT [facility] ([facility] OFFICE OUTPATIENT VISIT 10 MINUTES 12/15/2020 12:00:00 AM EDT [facility] ([facility] OFFICE OUTPATIENT VISIT 15 MINUTES 12/15/2020 12:00:00 AM EDT [facility] ([facility] OFFICE OUTPATIENT VISIT 15 MINUTES 11/15/2020 12:00:00 AM EDT [facility] ([facility] OFFICE OUTPATIENT VISIT 15 MINUTES 11/03/2020 12:00:00 AM EDT [facility] ([facility] INJECTION 1 TENDON SHEATH/LIGAMENT APONEUROSIS 021 12:00:00 AM EDT [facility] ([facility] Strapping Foot Or Ankle 10/27/2020 12:00:00 AM EDT [facility] ([facility] OFFICE OUTPATIENT VISIT 10 MINUTES 10/27/2020 12:00:00 AM EDT [facility] ([facility] Strapping Foot Or Ankle 10/13/2020 12:00:00 AM EDT [facility] ([facility] RADEX FOOT COMPLETE MINIMUM 3 VIEWS 10/13/2020 12:00:0 0 AM EDT [facility] ([facility] OFFICE OUTPATIENT NEW 30 MINUTES 10/13/2020 12:00:00 A M EDT [facility] ([facility] OFFICE OUTPATIENT VISIT 15 MINUTES 08/22/2020 12:00:00 AM EST [facility] ([facility] OFFICE OUTPATIENT VISIT 15 MINUTES 08/08/2020 12:00:00 AM EST [facility] ([facility] Results ID Date Data Source [id number] 11/16/2020 10:04:00 PM EDT [facility] 1 Medication Reconciliation Report [facility] Emergency Department [address] [place] [address] Phone #: ext [phone] 11/16/2020 22:01 Patient: REFUGIO LOVING Sex: M : 1985 Age: 35yWeight: 93.8 kgHeight/Length: 72 in.BMI: 28.1ALLERGIES: TylenolThe patient's Home Medications are listed below:CONTINUE TAKING THE FOLLOWING MEDICATIONS: Keflex Oral 500 mg, 3x a day Mupirocin ExternalThe source(s) of the original Home Medication information:Not obtained.The following Medications were given to the patient in the Emergency Department:None.The following Medications were prescribed to the patient:None. Name Value Range Interpretation Code Description Data [facility](s) Supporting Document(s) ID Date Data Source [id number] 11/16/2020 10:04:00 PM EDT [place] [address] Medication Administration Record [facility] Emergency Department [address] [place] [address] Phone #: ext [phone] 11/16/2020 22:01 Patient: REFUGIO LOVING Sex: M : 1985 Age: 35yWeight: 93.8 kgHeight/Length: 72 inBMI: 28.1ALLERGIES: TylenolDate/Time Medication Administered Medication Ordered Name Value Range Interpretation Code Description Data [facility](s) Supporting Document(s) ID Date Data Source [id number] 11/16/2020 10:04:00 PM EDT [place] [address] General Instructions [facility] Emergency Department [address] [place] [address] Phone #: ext [phone] 11/16/2020 22:01 [id number] Sex[facility] : 1985 Age: 35ySebaceous cystINSTRUCTIONS(Continue taking the Keflex 500mg three times per day as previously prescribed.).Warnings: Further evaluation is necessary. It is very important to follow up with a healthcare provider.GENERAL WARNINGS: Return or contact your physician immediately if your condition worsens orchanges unexpectedly, if not improving as expected, or if other problems arise. Specifically return if pain orfever worsens.Your Current Medications: Your current home medications have been reviewed.CONTINUE TAKING THE FOLLOWING MEDICATIONS:Keflex Oral : 500 mg 3x a day.Mupirocin External.Follow-up:Follow up with your doctor in three days if not better. Reason for referral: evaluation and treatment.Summary of care provided to patient.Understanding of the discharge instructions verbalized by patient. ADDITIONAL INFORMATIONInfected Epidermoid Cyst (Incision and Drainage)You have an epidermoid cyst. This is a small, painless lump under your skin. An epidermoid cyst isoften called an epidermal cyst, epidermal inclusion cyst, or incorrectly, a sebaceous cyst. It formsslowly under the skin. It can be found on most parts of the body. But it most often is found on areaswith more hair such as the scalp, face, upper back, and genitals.Some general facts about epidermoid cysts: A cyst is a sac filled with material that is often cheesy, fatty, oily, or stringy. The material inside them can be thick. Or it can be a thin liquid. The area around the cyst may smell bad. If the cyst breaks open, the material inside it often smells bad too. 2 General Instructions [facility] Emergency Department [address] [place] [address] Phone #: ext- [phone] 11/16/2020 22:01 Patient: COUSINSREFUGIO [facility]#: [id number] Sex: Bryan : 1985 Age: 35y You can usually move the cyst slightly if you try. The cyst can be smaller than a pea or as large as a few inches. The cyst is usually not painful, unless it becomes inflamed or infected.Your cyst became inflamed or infected and your healthcare provider wanted to drain it. Gauzepacking may have been inserted into the cyst opening (cavity). This keeps the cyst open so it doesn'tseal up before it has time to drain more. No matter how well it was cleaned out, no cleaning is perfect.The packing will need to be removed.Once the pus is drained, antibiotics may not be needed unless the infection has spread into the skinaround the wound. The wound will take about 1 to 2 weeks to heal, depending on the size of theabscess.Home careThe following will help you care for your wound at home: The wound may drain for the first 2 days. Cover the opening with a clean dry bandage. If the dressing becomes soaked with blood or pus, change it. If a gauze packing was placed inside the opening of the cyst, it will need to be removed. Your healthcare provider will usually do this after 2 days. If it falls out sooner, don't try to put it back inside the wound. Once the packing is removed, you should wash the area carefully in the shower once a day, until the skin opening has closed. This could take up to 5 days depending on the size of the cyst. It's good to direct the shower spray directly into the opening if this is not too painful. If you were prescribed antibiotics, take them as directed until they are all used up. You may use hpgr-[id number] pain medicine to control pain, unless another medicine was given. If you have chronic liver or kidney disease or ever had a stomach ulcer or gastrointestinal bleeding, talk with your provide r before using these medicines.PreventionOnce this infection has healed, use these prevention tips to avoid another infection: Keep the cyst opening clean by bathing or showering daily. Avoid tight-fitting clothing in the cyst area. Watch for the signs of infection listed below so that treatment may be started early.Follow-up care 3 General Instructions [facility] Emergency Department [address] [place] [address] Phone #: ext- [phone] 11/16/2020 22:01 [id number] Sex: Bryan : 1985 Age: 35yFollow up with your healthcare provider, or as advised. If a gauze packing was put in your wound, itshould be removed as instructed by your healthcare provider. Check your wound every day for thesigns listed below. When to seek medical adviceCall your healthcare provider right away if any of these occur: Pus continues to come from the cyst 2 days after the incision and drainage Increasing redness around the wound. Increasing local pain or swelling Fever of 100.4F (38C) or higher, or as directed by your provider [id number] [employer]. [address] [place] [address]. All rights reserved. This information is not intended as asubstitute for professional medical care. Always follow your healthcare professional's instructions. You have been given the following additional information: Epidermoid Cyst, Infected (Incision and Drainage)(Electronically signed by KARINA Eduardo 11/16/2020 22:19) Name Value Range Interpretation Code Description Data Rosaline rce(s) Supporting Document(s) ID Date Data Source [id number] 11/16/2020 10:04:00 PM EDT [facility] 1 Clinical Report - Nurses [facility] Emergency Department [address] [place] [address] Phone #: ext- [phone] 11/16/2020 22:01 Patient: REFUGIO LOVING Sex: M : 1985 Age: 35yTRIAGEArrived by private vehicle. Historian: patient.Triage time: 22:00 11/16/2020.Chief Complaint: TENDER AREA and . "ingrown Hair".It is described as burning. No fever. --22:11/16/20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
--- OUTSIDE RECORDS SUMMARY | 2021-04-10 14:51 | CCD | Continuity of Care Document ---
Author Author Refugio SANCHEZ DPBryan Organization Unknown Address [address] [place] [address], [address] [place] [address] Phone [phone] Care Team Providers Care Leather Finisher Name Role Phone Elliot Rhoades M.D.M [phone] Problems Active Problems Provider Date Osteochondropathy Bharat Sanchez DPM Onset: 10/16/2020 Tenosynovitis of foot Bharat Sanchez DPM Onset: 10/16/2020 Plantar fascial fibromatosis Bharat Sanchez DPM Onset: Social History Type Date Description Comments Sex Unknown ETOH Use Denies alcohol use Tobacco Use Start: Unknown Patient is a current smoker, smo kes every day Allergies, Adverse Reactions, Alerts Active Allergies Criticality Reaction | Severity Comments [...] Inject Triamcinolone Acetonide 10 ML, ND C 9543-2794-44 Injection Bharat strange DPM 10/27/2020 Inject Dexamthosone Phosphate 79036-665- 30 Injection Bharat Sanchez DPM 021 Immunizations Description No Information Available Vital Signs Date Vital Result Comment 10/13/2020 10:09am Height 72 inches 6'0" Weight 200.00 lb BP Systolic 122 mmHg BP Diastolic 88 mmHg Heart Rate 65 /min BMI (Body Mass Index) 27.1 kg/m2 Results Description No Information Available Procedures Date Code Description Status 12/15/2020 74251 Office/Outpatient Established SF MDM 10-19 Min Completed 10/27/2020 53409 Office/Outpatient Established SF MDM 10-19 Min Completed 10/27/2020 64517 Strapping Foot Or Ankle Complete d 10/27/2020 39299 Inject Tendon/Ligament/Cyst Comp leted 10/13/2020 88062 Office/Outpatient New Low MDM 30 -44 Minutes Completed 10/13/2020 81239 X-Ray Foot Complete Completed 10/13/2020 34824 Strapping Foot Or Ankle Complete d Medical Devices Description No Information Available Encounters Type Date Location Provider Dx Diagnosis Office Visit 12/15/2020 10:15a [place] [facility] Bharat Sanchez DPM M72.2 Plantar fascial fibromatosis Office Visit 10/27/2020 10:15a [place] [facility] Bharat Sanchez DPM M72.2 Plantar fascial fibromatosis M65.871 Other synovitis and tenosyno vitis, right ankle and foot M72.2 Plantar fascial fibromatosis Office Visit 10/13/2020 10:15a [place] [facility] Bharat Sanchez DPM 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, right ankle and foot M65.871 Other synovitis and tenosyno vitis, right ankle and foot Assessments Date Code Description Provider 12/15/2020 M72.2 Plantar fascial fibromatosis And zeynep Sanchez DPM 10/27/2020 M72.2 Plantar fascial fibromatosis And zeynep Sanchez DPM 10/27/2020 M65.871 Other synovitis and tenosynoviti s, right ankle and foot Bharat Sanchez DPM 10/27/2020 M72.2 Plantar fascial fibromatosis And rew Sheyla Sanchez DPM 10/13/2020 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
--- OUTSIDE RECORDS SUMMARY | 2021-04-10 14:51 | CCD | Continuity of Care Document ---
Author Author Refugio SANCHEZ DPBryan Organization Unknown Address [address] [place] [address], [address] [place] [address] Phone [phone] Care Team Providers Care Aids Social Worker Name Role Phone Elliot Rhoades M.D.M [phone] Problems Active Problems Provider Date Osteochondropathy Bharat [...] Inject Triamcinolone Acetonide 10 ML, ND C 1322-7091-99 Injection Bharat strange DPM 10/27/2020 Inject Dexamthosone Phosphate 44603-988- 30 Injection Bharat Sanchez DPM 021 Immunizations Description No Information Available Vital Signs Date Vital Result Comment 10/13/2020 10:09am Height 72 inches 6'0" Weight 200.00 lb BP Systolic 122 mmHg BP Diastolic 88 mmHg Heart Rate 65 /min BMI (Body Mass Index) 27.1 kg/m2 Results Description No Information Available Procedures Date Code Description Status 12/15/2020 83234 Office/Outpatient Established SF MDM 10-19 Min Completed 10/27/2020 38147 Office/Outpatient Established SF MDM 10-19 Min Completed 10/27/2020 75490 Strapping Foot Or Ankle Complete d 10/27/2020 72165 Inject Tendon/Ligament/Cyst Comp leted 10/13/2020 37491 Office/Outpatient New Low MDM 30 -44 Minutes Completed 10/13/2020 56010 X-Ray Foot Complete Completed 10/13/2020 04743 Strapping Foot Or Ankle Complete d Medical Devices Description No Information Available Encounters Type Date Location Provider Dx Diagnosis Office Visit 12/15/2020 10:15a [place] [facility] Bharat Sanchez DPM M72.2 Plantar fascial fibromatosis Office Visit 10/27/2020 10:15a [place] [facility] Bharat Sanchez DPM M72.2 Plantar fascial fibromatosis M65.871 Other synovitis and tenosyno vitis, right ankle and foot M72.2 Plantar fascial fibromatosis Office Visit 10/13/2020 10:15a [place] [facility] Bharat Sanchez DPM M84.871 Other disorders [...] M72.2 Plantar fascial fibromatosis And rew Sheyla Snachez DPM 10/13/2020 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
[2021-04-10] MEDS ORDERED: LIDOCAINE 4% CREAM 5GM (LMX4) TOP ONE (17:45)
[2021-04-10] MEDS ORDERED: BOOSTRIX/ADACEL VACCINE (DIPHTH/PERTUSS/ACELL/TETANUS) 0.5ML SYR IM ONE (17:45)
[2021-04-10] MEDS ORDERED: CEPHALEXIN 500 MG CAP PO ONE (17:45)
--- NOTE | 2021-04-10 18:09 | REPVR ---
PROCEDURE INFORMATION: Exam: CT Head Without Contrast Exam date and time: 04/10/2021 5:43 PM Age: 36 years old Clinical indication: Injury or trauma; Other: Board with nail fell and nail stuck into PT head, 4d ago; Blunt trauma (contusions or hematomas) TECHNIQUE: Imaging protocol: Computed tomography of the head without contrast. Radiation optimization: All CT scans at this facility use at least one of these dose optimization techniques: automated exposure control; mA and/or kV adjustment per patient size (includes targeted exams where dose is matched to clinical indication); or iterative reconstruction. COMPARISON: CT Head without contrast 07/15/2015 10:00 PM FINDINGS: Brain: There is no evidence of infarct, ugarte-white matter differentiation is preserved. There is no hemorrhage or extra-axial collection. There is no mass. Cerebral ventricles: There is no hydrocephalus. Paranasal sinuses: Visualized sinuses are unremarkable. No fluid levels. Mastoid air cells: Visualized mastoid air cells are well aerated. Bones/joints: Unremarkable. No acute fracture. Soft tissues: Unremarkable. IMPRESSION: No intracranial lesion or injury Electronically signed by: Pasquale Mcneil On 04/10/2021 18:09:18 PM
[2021-04-10] MEDS ORDERED: NAPROXEN 250 MG TAB PO ONE (18:45)
--- OUTSIDE RECORDS SUMMARY | 2021-04-10 18:56 | CCD ---
Author Author [facility] Address Unknown Phone Unavailable Care Team Providers Care Making Department Preparer Name Role Phone KEILY, F JUAN DO [...] Unavailable ZACARIAS, H SARI JEROME Unavailable Unavailable ZACARIASNaveen MD Unavailable Unavailable ZACARIAS, Naveen GUO MD Unavailable Unavailable ZACARIAS, H SARI JEROME Unavailable Unavailable Naveen ADAMES MD Unavailable Unavailable ZACARIAS, H SARI JEROME Unavailable Unavailable ZACARIAS, H SARI JEROME Unavailable Unavailable ZACARIAS H SARI JEROME Unavailable Unavailable ZACARIAS, H SARI JEROME Unavailable Unavailable ZACARIAS H SARI JEROME Unavailable Unavailable Naveen ADAMES MD Unavailable Unavailable Naveen ADAMES MD Unavailable Unavailable ZACARIAS H SARI JEROME Unavailable Unavailable Naveen ADAMES MD Unavailable Unavailable ZACARIAS H SRAI JEROME Unavailable Unavailable ZACARIAS H SARI JEROME [...] R ABBEY DPM Unavailable Unavailable MAJAK, R BABEY DPM Unavailable Unavailable MAJAK, R ABBEY DPM [...] Neal MD Unavailable Unavail able El-Dokla, Maricarmen Mari Neal MD Unavailable Unavail able El-Dokla, Maricarmen Mari Neal MD Unavailable Unavail able El-Dokla, Maricarmen Mari Neal MD Unavailable Unavail able El-Dokla, Maricarmen Mari Neal MD Unavailable Unavail able El-Dokla, Maricarmen Seramed Ángel JEROME Unavailable Unavail able El-Dokla, Maricarmen Mari Neal MD Unavailable Unavail able El-Dokla, Maricarmen Mari Neal MD Unavailable Unavail able El-Dokla, Maricarmen Mari Neal MD Unavailable Unavail able El-Dokla, Maricarmen Seramed Ángel JEROME Unavailable Unavail able El-Dokla, Maricarmen Seramed Ángel JEROME Unavailable Unavail able El-Dokla, Maricarmen Seramed Ángel JEROME Unavailable Unavail able El-Dokla, Maricarmen Seramed Ángel MD Unavailable Unavail able El-Dokla, Maricarmen Mari Neal MD Unavailable Unavail able El-Dokla, Maricarmen Mari Neal MD Unavailable Unavail able El-Dokla, Maricarmen Mari Neal MD Unavailable Unavail able El-Dokla, Maricarmen Seramed Ángel JEROME Unavailable Unavail able El-Dokla, Maricarmen Mari Neal MD Unavailable Unavail able El-Dokla, Maricarmen Mari Neal MD Unavailable Unavail able El-Dokla, Maricarmen Mari Neal MD Unavailable Unavail able El-Dokla, Maricarmen Mari Neal MD Unavailable Unavail able El-Dokla, Maricarmen Mari Neal MD Unavailable Unavail able El-Dokla, Maricarmen Neal MD Unavailable Unavail able El-Dokla, Maricarmenhung Neal MD Unavailable Unavail able El-Dokla, Maricarmen Mari Neal MD Unavailable Unavail able El-Dokla, Maricarmen Mari Neal MD Unavailable Unavail able El-Dokla, Maricarmen Mari Neal MD Unavailable Unavail able El-Dokla, Maricarmen [...] Unavailable German Good MD Unavailable Unavailable German oGod MD Unavailable Unavailable German Good MD Unavailable Unavailable German Good MD Unavailable Unavailable LatishaGerman barrera MD Unavailable Unavailable German Good MD Unavailable Unavailable German Good MD Unavailable Unavailable German Good MD Unavailable Unavailable German Good MD Unavailable Unavailable Rimma Aragon MD Unavailable Unavailable Rimma Aragon MD Unavailable Unavailable Rimma Araogn MD Unavailable Unavailable Rimma Aragon MD Unavailable [...] Unavailable Unavailable Rimma Aragon MD Unavailable Unavailable MargoRimma sneed MD Unavailable Unavailable Margo O Jax JEROME Unavailable Unavailable Rimma Aragon MD Unavailable Unavailable Margo O Jax JEROME Unavailable Unavailable Margo O Jax JEROME Unavailable Unavailable Margo O Jax JEROME Unavailable Unavailable Margo, O Jax JEROME Unavailable Unavailable Rimma Aragon MD Unavailable Unavailable Margo O Jax JEROME Unavailable Unavailable Margo O Jax JEROME Unavailable Unavailable Margo, O Jax JEROME Unavailable Unavailable DEMARTINI, M GORDON PA Unavailable [...] GORDON PA Unavailable Unavailable Rounds, M FRANCE NUCLEAR FUELS RECLAMATION ENGINEER Unavailable Unavailable Rounds, M FRANCE NUCLEAR FUELS RECLAMATION ENGINEER Unavailable Unavailable Rounds, M FRANCE NUCLEAR FUELS RECLAMATION ENGINEER Unavailable Unavailable Rounds, M FRANCE NUCLEAR FUELS RECLAMATION ENGINEER Unavailable Unavailable Rounds, M FRANCE NUCLEAR FUELS RECLAMATION ENGINEER Unavailable Unavailable Rounds, M FRANCE NUCLEAR FUELS RECLAMATION ENGINEER Unavailable Unavailable Rounds, M FRANCE NUCLEAR FUELS RECLAMATION ENGINEER Unavailable Unavailable Rounds, M FRANCE NUCLEAR FUELS RECLAMATION ENGINEER Unavailable Unavailable Rounds, M FRANCE NUCLEAR FUELS RECLAMATION ENGINEER Unavailable Unavailable Rounds, M FRANCE NUCLEAR FUELS RECLAMATION ENGINEER Unavailable Unavailable Rounds, M FRANCE NUCLEAR FUELS RECLAMATION ENGINEER Unavailable Unavailable Rounds, M FRANCE NUCLEAR FUELS RECLAMATION ENGINEER Unavailable Unavailable Rounds, M FRANCE NUCLEAR FUELS RECLAMATION ENGINEER Unavailable Unavailable Rounds, M FRANCE NUCLEAR FUELS RECLAMATION ENGINEER Unavailable Unavailable Rounds, M FRANCE NUCLEAR FUELS RECLAMATION ENGINEER Unavailable Unavailable Rounds, M FRANCE NUCLEAR FUELS RECLAMATION ENGINEER Unavailable Unavailable Rounds, M FRANCE NUCLEAR FUELS RECLAMATION ENGINEER Unavailable Unavailable Rounds, M FRANCE NUCLEAR FUELS RECLAMATION ENGINEER Unavailable Unavailable Rounds, M FRANCE NUCLEAR FUELS RECLAMATION ENGINEER Unavailable Unavailable Rounds, M FRANCE NUCLEAR FUELS RECLAMATION ENGINEER Unavailable Unavailable Rounds, M FRANCE NUCLEAR FUELS RECLAMATION ENGINEER Unavailable Unavailable Rounds, M FRANCE NUCLEAR FUELS RECLAMATION ENGINEER Unavailable Unavailable Rounds, M FRANCE NUCLEAR FUELS RECLAMATION ENGINEER Unavailable Unavailable Rounds, M FRANCE NUCLEAR FUELS RECLAMATION ENGINEER Unavailable Unavailable Rounds, M FRANCE NUCLEAR FUELS RECLAMATION ENGINEER Unavailable Unavailable Rounds, M FRACNE NUCLEAR FUELS RECLAMATION ENGINEER Unavailable Unavailable Rounds, M FRANCE NUCLEAR FUELS RECLAMATION ENGINEER Unavailable Unavailable Rounds, M FRANCE NUCLEAR FUELS RECLAMATION ENGINEER Unavailable Unavailable Rounds, M FRANCE NUCLEAR FUELS RECLAMATION ENGINEER Unavailable Unavailable Rounds, M FRANCE NUCLEAR FUELS RECLAMATION ENGINEER Unavailable Unavailable Rounds, M FRANCE NUCLEAR FUELS RECLAMATION ENGINEER Unavailable Unavailable Rounds, M FRANCE NUCLEAR FUELS RECLAMATION ENGINEER Unavailable Unavailable Rounds, M FRANCE NUCLEAR FUELS RECLAMATION ENGINEER Unavailable Unavailable Rounds, M FRANCE NUCLEAR FUELS RECLAMATION ENGINEER Unavailable Unavailable Rounds, M FRANCE NUCLEAR FUELS RECLAMATION ENGINEER Unavailable Unavailable Rounds, M FRANCE NUCLEAR FUELS RECLAMATION ENGINEER Unavailable Unavailable Rounds, M FRANCE NUCLEAR FUELS RECLAMATION ENGINEER Unavailable Unavailable Rounds, M FRANCE NUCLEAR FUELS RECLAMATION ENGINEER Unavailable Unavailable Rounds, M FRANCE NUCLEAR FUELS RECLAMATION ENGINEER Unavailable Unavailable Rounds, M FRANCE NUCLEAR FUELS RECLAMATION ENGINEER Unavailable Unavailable Rounds, M FRANCE NUCLEAR FUELS RECLAMATION ENGINEER Unavailable Unavailable Rounds, M FRANCE NUCLEAR FUELS RECLAMATION ENGINEER Unavailable Unavailable Rounds, M FRANCE NUCLEAR FUELS RECLAMATION ENGINEER Unavailable Unavailable Rounds, M FRANCE NUCLEAR FUELS RECLAMATION ENGINEER Unavailable Unavailable Rounds, M FRANCE NUCLEAR FUELS RECLAMATION ENGINEER Unavailable Unavailable Rounds, M FRANCE NUCLEAR FUELS RECLAMATION ENGINEER Unavailable Unavailable Rounds, M FRANCE NUCLEAR FUELS RECLAMATION ENGINEER Unavailable Unavailable Rounds, M FRANCE NUCLEAR FUELS RECLAMATION ENGINEER Unavailable Unavailable Rounds, M FRANCE NUCLEAR FUELS RECLAMATION ENGINEER Unavailable Unavailable Rounds, M FRANCE NUCLEAR FUELS RECLAMATION ENGINEER Unavailable Unavailable Rounds, M FRANCE NUCLEAR FUELS RECLAMATION ENGINEER Unavailable Unavailable Rounds, M FRANCE NUCLEAR FUELS RECLAMATION ENGINEER Unavailable Unavailable Rounds, M FRANCE NUCLEAR FUELS RECLAMATION ENGINEER Unavailable Unavailable Rounds, M FRANCE NUCLEAR FUELS RECLAMATION ENGINEER Unavailable Unavailable Rounds, M FRANCE NUCLEAR FUELS RECLAMATION ENGINEER Unavailable Unavailable Rounds, M FRANCE NUCLEAR FUELS RECLAMATION ENGINEER Unavailable Unavailable Rounds, M FRANCE NUCLEAR FUELS RECLAMATION ENGINEER Unavailable Unavailable Rounds, M FRANCE NUCLEAR FUELS RECLAMATION ENGINEER Unavailable Unavailable Rounds, M FRANCE NUCLEAR FUELS RECLAMATION ENGINEER Unavailable Unavailable Rounds, M FRANCE NUCLEAR FUELS RECLAMATION ENGINEER Unavailable Unavailable Rounds, M FRANCE NUCLEAR FUELS RECLAMATION ENGINEER Unavailable Unavailable Rounds, M FRANCE NUCLEAR FUELS RECLAMATION ENGINEER Unavailable Unavailable Rounds, M FRANCE NUCLEAR FUELS RECLAMATION ENGINEER Unavailable Unavailable TURRIN, REBECCA Unavailable Unavailable TURRIN, [...] Unavailable Teri, D Varghese PA Unavailable Unavailable Trei, D Varghese PA Unavailable Unavailable Teri, D [...] Unavailable Naveen ADAMES MD Unavailable Unavailable Naveen ADAMSE MD Unavailable Unavailable Naveen ADAMES MD Unavailable [...] Unavailable ZACARIAS H SARI MD Unavailable Unavailable ZACARIASNaveen MD Unavailable Unavailable [...] Unavailable ZACARIAS H SARI MD Unavailable Unavailable ZACARIASNaveen MD Unavailable Unavailable [...] Unavailable Unavailable Naveen ADAMES MD Unavailable Unavailable German Good MD Unavailable [...] Unavailable German Good MD Unavailable Unavailable German Godo MD Unavailable Unavailable German Good MD Unavailable [...] is protected by Article 27-F of the [facility] Public Health law. If you continue you may have access to information: Regarding HIV / AIDS; Provided by facilities licensed or operated by the [facility] Office of Mental Health; or Provided by the [facility] Office for People With Developmental Disabilities. If such information is present, then the following [facility] mandated warning applies: This information has been [...] law may result in a fine or fci sentence or both. A general authorization for the release of medical or other information is NOT sufficient authorization for further disc losure. Family History Family Member Name Family Member Gender Family Member Status Date o f Status Description Data Source(s) Unknown Unknown Problem [facility] Encounters Encounter Providers Location Date Indications Data Source(s ) Outpatient Attender: ABBEY [place] [facility] 02/15 11:15:00 AM EDT [facility] ([facility] Outpatient Attender: Varghese COLLINS [facility] 06/2020 02:40:00 PM EDT [facility] Outpatient Attender: ABBEY SANCHEZ [facility] Office 06/2020 10:15:00 AM EDT [facility] ([facility] Emergency Attender: REBECCA WHITMANConsultant: SARI MOSER MD 11/16/2020 10:04:00 PM EDT - 11/16/2020 10:27:00 PM EDT [facility] Patient discharged. Outpatient Attender: Varghese COLLINS [facility] 06/2020 11:00:00 AM EDT [facility] Outpatient Attender: Varghese COLLINS [facility] 11:15:00 AM EDT [facility] Outpatient Attender: ABBEY SANCHEZ [facility] 10/15 10:15:00 AM EDT [facility] ([facility] Emergency Attender: JUAN KITCHEN DOConsultant: SARI MOSER MD 10/23/2020 02:40:00 AM EDT - 10/23/2020 05:03:00 AM EDT [facility] Patient discharged. Outpatient Attender: ABBEY SANCHEZ [facility] Office 09/16 10:15:00 AM EDT [facility] ([facility] Outpatient 09/27/2020 12:00:00 AM [facility] Outpatient 08/23/2020 12:00:00 AM [facility] Outpatient Attender: FRANCE Gonzalez NP [facility] 08/22/2020 0 3:00:00 PM EST [facility] ([facility] Outpatient Attender: Varghese COLLINS [facility] 02:15:00 PM EST [facility] Outpatient Attender: Mari Burton MD 07/12/2020 12:00:00 AM [facility] Outpatient 07/11/2020 12:00:00 AM [facility] Outpatient Attender: FRANCE Gonzalez NP [facility] 05/23/2020 1 2:00:00 PM EST [facility] ([facility] Outpatient Attender: Alexis Good MDConsultant: SARI MOSER MD 05/17/2020 03:06:00 PM EST - 05/17/2020 03:06:00 PM [facility] Outpatient Attender: FRANCE Gonzalez NP [facility] 05/09/2020 0 1:00:00 PM EST [facility] ([facility] Outpatient Referrer: GORDON COLLINS 05/09/2020 12:00: 00 AM [facility] Outpatient Referrer: GORDON COLLINS 05/04/2020 12:00: 00 AM [facility] Outpatient Attender: Alexis Good MDConsultant: SARI MOSER MD 05/03/2020 11:27:00 AM EST - 05/03/2020 11:27:00 AM [facility] Outpatient Attender: Alexis Good MD [facility] 05/03/2020 1 0:30:00 AM EST [facility] ([facility]) Outpatient Attender: FRANCE Gonzalez NP [facility] 05/02/2020 1 0:00:00 AM EST [facility] ([facility] Outpatient Referrer: GORDON COLLINS 04/27/2020 12:00:00 AM EST PT rt foot and lumbar [facility] PT rt foot and lumbar Outpatient Referrer: GORDON COLLINS 04/20/2020 12:00: 00 AM [facility] Outpatient Attender: Mikki COLLINS [facility] 04/15/2020 02:20:00 PM EDT [facility] ([facility] Outpatient Referrer: GORDON COLLINS 04/11/2020 12:00:00 AM EDT PT rt foot and lumbar [facility] PT rt foot and lumbar Outpatient Referrer: GORDON COLLINS 04/07/2020 12:00: 00 AM EDT [facility] Outpatient Referrer: GORDON COLLINS 04/01/2020 12:00:00 AM EDT PT rt foot and lumbar [facility] PT rt foot and lumbar Outpatient Attender: Jax Aragon MD [facility] office [facility] 03/29/2020 01:45:00 PM EDT [facility] ([facility] Outpatient Attender: GORDON COLLINS [id number] 03/18/2020 12:00:00 AM EDT Pain in right foot [facility] Pain in right foot Outpatient Referrer: GORDON COLLINS 03/18/2020 12:00:00 AM EDT Pain in right [facility] Pain in right foot Outpatient Referrer: GORDON COLLINS 03/18/2020 12:00:00 AM EDT Pain in right foot [facility] Pain in right foot Outpatient Attender: SARI ADAMES MD [facility] 03:20:00 PM EDT [facility] ([facility] Immunizations Vaccine Date Status Description Data Source(s) COVID-19 VACC, MRNA(PFIZER)/PF 11/29/2020 12:00:00 AM EDT completed [facility] COVID-19 VACCINE Pfizer 11/29/2020 12:00:00 AM EDT completed [facility] Vaccine Series Complete: YESThis Data wa s Submitted to [facility] [employer]. COVID-19 VACC, MRNA(PFIZER)/PF 11/08/2020 12:00:00 AM EDT completed [facility] COVID-19 VACCINE Pfizer 11/08/2020 12:00:00 AM EDT completed [facility] Vaccine Series Complete: NOThis Data was Submitted to [facility] [employer]. Medications Medication Brand Name Start Date Product Form Dose Route Admi nistrative Instructions Pharmacy Instructions Status Indications Reaction Description Data Source(s) Prednisone 10 MG Oral Tablet Prednisone 02/27/2021 12:00:00 AM EDT active [facility] ([facility] No Active Medications 12/15/2020 12:00:00 AM EDT active [facility] ([facility] Cephalexin 500 MG Oral Capsule Cephalexin 11/15/2020 12:00:00 AM EDT ORAL completed [facility] ([facility] Mupirocin 0.02 MG/MG Topical Ointment Mupirocin 11/03/2020 12:00:00 AM EDT completed [facility] Inject Triamcinolone Acetonide 10 ML, [facility] 2001 2665-9744-04 10/27/2020 12:00:00 AM EDT completed [facility] ([facility] Medication administered onsite Inject Dexamthosone Phosphate 82023-608-90 10/27/2020 12:00:00 A M EDT completed [facility] ([facility] Medication administered onsite Naproxen 500 MG Oral Tablet Naproxen 10/13/2020 12:00:00 AM EDT active [facility] Fluconazole 100 MG Oral Tablet [Diflucan] Diflucan 08/22/2020 1 2:00:00 AM EST ORAL completed [facility] ([facility] Nystatin 383216 UNT/ML Topical Cream Nystatin 08/22/2020 12:00:00 AM EST completed [facility] ([facility] cetirizine hydrochloride 10 MG Oral Tablet HM Cetirizine HCL 05/23/2020 12:00:00 AM EST ORAL active [facility] gabapentin 100 MG Oral Capsule Gabapentin 05/02/2020 12:00:00 AM EST ORAL completed [facility] ([facility] Nystatin 557280 UNT/ML / Triamcinolone Acetonide 1 MG/ ML Topical Cream Nystatin-Triamcinolone 04/15/2020 12:00:00 AM EDT completed [facility] ([facility] methylPREDNISolone 4 MG Oral Tablet Therapy Pack (MEDROL (PA K)) 6563-3470-92 03/18/2020 12:00:00 AM EDT active follow package [facility] Amitriptyline Hydrochloride 50 MG Oral Tablet Amitriptyline HCL 03/01/2020 12:00:00 AM EDT active M [facility] ([facility] Prednisone 10 MG Oral Tablet Prednisone 11/26/2019 12:00:00 AM EDT ORAL completed [facility] ([facility] Misc. Devices (DURABLE MEDICAL EQUIPMENT SEE SIG) [facility] [id number] 08/03/2016 12:00:00 AM EST aborted Use as directed. [facility] Unit Dx: [facility] Insurance Providers Payer name Policy type / Coverage type Policy ID Covered green party ID Covered green party's relationship to morris Policy [employer] Plan Information MEDICARE A [id number] Self [id number] A MEDICARE [id number] SP [id number] N87 MEDICARE [id number] SP [id number] A MEDICARE A [id number] Self [id number] N87 MEDICAID M [id number] Self [id number] Medicare P [id number] S [id number] A Medicaid S [id number] S [id number] MEDICAID [id number] SP [id number] [place] [id number] SP [id number] [place] [id number] SP [id number] C MEDICAID [id number] SP [id number] Medicare C [id number] SELF [id number] N87 DME Jurisdiction A NHIC C [id number] SELF [id number] MEDICAID -CLINIC [id number] MEDICAID -PHYSICIAN [id number] 1 8 [id number] MEDICARE PART [place] [id number] 18 [id number] Medicaid [facility] Healthcare S D [id number] SELF [id number] A [place]ID [place] [id number] NGS MEDICARE MASS O [id number] S [id number] MEDICAID M [id number] S [id number] MEDICARE C [id number] S [id number] A MEDICAID -O/P [id number] 18 [id number] MEDICAID -PHYSICIAN [id number] 1 [id number] MEDICARE PART A -O/P [id number] MEDICAID [id number] SP [id number] MEDICARE PART A -O/P [id number] 18 [id number] Medicaid [facility] Part B [id number] Self [id number] Medicare [facility] Medicare Primary [id number] Self [id number] Medicaid [facility] Part B [id number] Self [id number] Medicare [facility] Medicare Primary [id number] Self [id number] MEDICAID -O/P EMERGENCY ROOM [id number] MEDICARE OUTPATIENT M [id number] S [id number] MEDICAID W [id number] [place] [id number] Problems, Conditions, and Diagnoses Code Display Name Description Problem Type Effective Dates Data Source(s) K10541 Nicotine dependence, cigarettes, uncompl icated Nicotine dependence, cigarettes, uncomplicated Diagnosis 11/16/2020 10:04:[address] [facility] L723 Sebaceous cyst Sebaceous cyst Diagnosis 11/16/2020 10:04: 00 PM EDT [facility] P54036 Furuncle of left lower limb Furuncle of left lower collado b Diagnosis 11/16/2020 10:04:00 PM EDT [facility] Y[address] or not applicable Unspecified place or not applicable Diagnosis 10/23/2020 02:40:00 AM EDT [facility] [id number] Overexertion from prolonged static or awkward postures, initial encounter Overexertion from prolonged static or aw kward postures, initial encounter Diagnosis 10/23/2020 02:40:00 AM EDT [facility] G95409 Nicotine dependence, unspecified, uncomp licated Nicotine dependence, unspecified, uncomplicated Diagnosis 10/23/2020 02:40:00 AM EDT [facility] [id number] Strain of muscle, fascia and tendon at n filemon level, initial encounter Strain of muscle, fascia and tendon at neck level, initial encounter Diagnosis 10/23/2020 02:40:00 AM EDT [facility] M542 Cervicalgia Cervicalgia Diagnosis 10/23/2020 02:40:00 AM EDT [facility] I781 Nevus, non-neoplastic Nevus, non-neoplastic Diagnosis 05/17/2020 03:06:00 PM [facility] PT rt foot and lumbar PT rt foot and lumbar Diagnosis 04/27/2020 02:00:00 PM [facility] M54.16 Radiculopathy, lumbar region Radiculopathy, lumbar reg ion Diagnosis 03/18/2020 10:54:53 AM [facility] M79.671 Pain in right foot Pain in right foot Diagnosis 07/2019 10:54:53 AM [facility] M72.2 Plantar fascial fibromatosis Plantar fascial fibromato sis Problem 11/10/2020 12:00:00 AM EDT [facility] M65.871 Tenosynovitis of foot Tenosynovitis of foot Problem 10/16/2020 12:00:00 AM EDT [facility] ([facility] M84.871 Osteochondropathy Osteochondropathy Problem 10/16/2020 12:00:00 AM EDT [facility] [id number] Non-neoplastic nevus Non-neoplastic nevus Problem 05/03/2020 12:00:00 AM EST [facility] ([facility]) Surgeries/Procedures Procedure Description Date Indications Data Source(s) OFFICE OUTPATIENT VISIT 10 MINUTES 02/27/2021 12:00:00 AM EDT [facility] OFFICE OUTPATIENT VISIT 10 MINUTES 12/15/2020 [...] [facility] Results ID Date Data Source [id number] 11/16/2020 10:04:00 PM EDT [facility] 1 Medication Reconciliation Report [facility] Emergency Department [address] [place] [address] Phone #: ext- [phone] 11/16/2020 22:01 Patient: BRENDA LOVING Sex: M : 1985 Age: 35yWeight: [...] Name Value Range Interpretation Code Description Data [facility](s) Supporting Document(s) ID Date Data Source [id number] 11/16/2020 10:04:00 PM EDT [place] [address] Medication Administration Record [facility] Emergency Department [address] [place] [address] Phone #: ext [phone] 11/16/2020 22:01 Patient: BRENDA LOVING Sex: M : 1985 Age: 35yWeight: 93.8 kgHeight/Length: 72 inBMI: 28.1ALLERGIES: TylenolDate/Time Medication Administered Medication Ordered Name Value Range Interpretation Code Description Data Rosaline rce(s) Supporting Document(s) ID Date Data Source [id number] 11/16/2020 10:04:00 PM EDT [facility] 1 General Instructions [facility] Department [address] [place] [address] Phone #: ext- [phone] 11/16/2020 22:01 Patient: BRENDA LOVING Sex: M : 1985 Age: 35ySebaceous cystINSTRUCTIONS(Continue [...] often smells bad too. 2 General Instructions [facility] [address] [place] [address] Phone #: ext- [phone] 11/16/2020 22:01 [id number] Sex[facility] Bryan : 1985 Age: 35y You [...] are all used up. You may use [id number] pain medicine to control pain, unless another [...] be started early.Follow-up care 3 General Instructions [facility] Department [address] [place] [address] Phone #: ext- [phone] 11/16/2020 22:01 Patient: BRENDA LOVING Sex: Bryan : 1985 Age: 35yFollow up [...] higher, or as directed by your provider [phone] [employer]. [address] [place] [address]. All rights reserved. This information is not intended as asubstitute for professional medical care. Always follow your healthcare professional's instructions. You have been given the following additional information: Epidermoid Cyst, Infected (Incision and Drainage)(Electronically signed by KARINA Eduardo 11/16/2020 22:19) Name Value Range Interpretation Code Description Data Rosaline rce(s) Supporting Document(s) ID Date Data Source [id number] 11/16/2020 10:04:00 PM EDT [facility] 1 Clinical Report - Nurses [facility] Emergency Department [address] [place] [address] Phone #: ext- [phone] 11/16/2020 22:01 Patient: BRENDA LOVING Sex: M : 1985 Age: 35yTRIAGEArrived by private vehicle. Historian: patient.Triage time: 22:00 11/16/2020.Chief Complaint: TENDER AREA and . "ingrown Hair".It is described as burning. No fever. --22:11/16/20 Ivory Tolbert R.N.Acuity: LEVEL 4.SEPSIS SCREEN: SEPSIS SCREEN NEGATIVE. No suspected or confirmed signs of infection present.--22:11/16/20 Ivory Tolbert R.N.22:05 11/16/20. BP: 151/94. MAP: 113. HR: 69. RR: 16. O2 saturation: 98%. Temp: 97.5 F. Pain levelnow: 10/24. --22:11/16/20 Ivory Tolbert R.N.Weight: 93.8 kg stated. Height/Length: 72 inches Per Patient. BMI: 28.1. --22:11/16/20 Ivory Tolbert R.N.MedicationsMupirocin External. --22:10 11/16/20 Ivory Tolbert R.N. Keflex Oral 500 mg, 3x a day. --22:11/16/20 Ivory Tolbert R.N.AllergiesTylenol. --22:10 11/16/20 Ivory Tolbert R.N.PROBLEMS:Cervical Strain.Gerd.Tick Bite. --22:11/16/20 Ivory Tolbert R.N.ADDITIONAL SURGERIES:Appendectomy.Carpal Tunnel Surgery.Dental Surgery.Hernia Repair.Shoulder Surgery (Right). --22:11 11/16/20 Ivory Tolbert R.N.HistorySOCIAL HX: Heavy tobacco smoker (cigarette)- less than 1 pack per day. Drug use: marijuana. ("it helps 2 Clinical Report - Nurses [facility] [address] [place] [address] Phone #: ext- [phone] 11/16/2020 22:01 [id number] Sex[facility] Bryan : 1985 Age: 35y with [...] care instructions reviewed with pt by provider.). --22:10 11/16/20 Ivory Tolbert R.N.Locked/Released at 11/16/2020 22:27 by Rick Tolbert RN Name Value Range Interpretation Code Description Data Rosaline rce(s) Supporting Document(s) ID Date Data Source [id number] 11/16/2020 10:04:00 PM EDT [facility] 1 Clinical Report - Physicians/Mid Levels [facility] [address] [place] [address] Phone #: ext- [phone] 11/16/2020 22:01 Patient: BRENDA LOVING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
[2021-04-10] MEDS ORDERED: NAPR-837 PO (19:04)
[2021-04-10] MEDS ORDERED: ASPE16CR TOP (19:04)
[2021-04-10] MEDS ORDERED: CEPH500C PO (19:04)
[2021-04-10 19:09] VITALS: BP 110/72
== END 2021-04-10 19:16 | disposition home or self-care (01) ==
LOC: M ED 14:43
DX: S01.03XA Puncture wound without foreign body of scalp, initial encounter (principal); B99.9 Unspecified infectious disease; W45.0XXA Nail entering through skin, initial encounter; Y92.89 Other specified places as the place of occurrence of the external cause; Y93.9 Activity, unspecified; Y99.0 Civilian activity done for income or pay; R56.9 Unspecified convulsions; F17.200 Nicotine dependence, unspecified, uncomplicated; Z88.6 Allergy status to analgesic agent

== ENCOUNTER → 2021-05-08 | Outpatient (CLI) | payer MEDICARE, MEDICAID ==
[~2021-05-08] MED LIST changes: +ASPE16CR TOP; +CEPH500C PO; +NAPR-837 PO
--- NOTE | 2021-05-08 09:06 | REP ---
INDICATION: EVAL JOINT RT FOOT, PAIN. COMPARISON: None. TECHNIQUE: 2 x [address] without contrast and reconstructed in both sagittal and coronal planes FINDINGS: The joint spaces are symmetric and well maintained throughout. There is no marginal osteophytosis. There are no marginal erosions. There is no subchondral cyst formation and there is no subchondral sclerosis. Limited evaluation of the ankle shows no evidence of an abnormality. The subtalar joints are within normal limits. The mortise is intact. There is no evidence of a joint effusion. There is no fracture, dislocation, or subluxation. IMPRESSION: CT findings are within normal limits. <Electronically signed by Jan Rose > 05/08/21 0934
== END ==
LOC: M RAD 07:35
PROVIDERS: ATTEND Podiatrist Foot & Ankle Surgery
DX: M25.571 Pain in right ankle and joints of right foot (principal)

== ENCOUNTER → 2021-06-21 | Outpatient (REF) | payer MEDICARE, MEDICAID ==
[2021-06-21 17:16] LABS: APPEARANCE, URINE CLEAR (CLEAR); BACTERIA, URINE AUTO NEGATIVE (NEGATIVE); BILIRUBIN, URINE AUTO NEGATIVE (NEGATIVE); BLOOD, URINE BLOOD NEGATIVE (NEGATIVE); COLOR, URINE YELLOW (YELLOW); GLUCOSE, URINE (UA) AUTO NEGATIVE (NEGATIVE); KETONE, URINE AUTO NEGATIVE (NEGATIVE); LEUKOCYTE ESTERASE, URINE AUTO NEGATIVE (NEGATIVE); MUCUS, URINE SMALL (NEGATIVE); NITRITE, URINE AUTO NEGATIVE (NEGATIVE); PROTEIN, URINE AUTO NEGATIVE (NEGATIVE); RBC, URINE AUTO 1 /HPF (0-3); SPECIFIC GRAVITY URINE AUTO 1.029 (1.002-1.035); SQUAMOUS EPITHELIAL CELL UR AU 0 /HPF (0-6); UROBILINOGEN, URINE AUTO 0.2 mg/dL (0.0-2.0); WBC, URINE AUTO 1 /HPF (0-3)
== END ==
LOC: M SMT 16:53
PROVIDERS: ATTEND Physician Assistant
DX: R35.0 Frequency of micturition (principal)
CPT/HCPCS: 51798; 81001; 87086; G0463

== ENCOUNTER → 2021-06-28 | Outpatient (CLI) | payer MEDICARE, MEDICAID | LOC: M RAD 09:56 | PROVIDERS: ATTEND Physician Assistant | DX: R35.0 Frequency of micturition (principal) ==

== ENCOUNTER 2021-08-16 12:57 | Emergency (ER) | payer MEDICAID, MEDICARE ==
[~2021-08-16] VITALS: Ht 182.9 cm; Wt 95.5 kg
[2021-08-16] MEDS ORDERED: KETOROLAC TROMETHAMINE 10 MG TAB PO ONE (14:55)
[2021-08-16 15:40] VITALS: BP 120/74
== END 2021-08-16 15:42 | disposition home or self-care (01) ==
LOC: M ED 12:57
DX: M25.571 Pain in right ankle and joints of right foot (principal); F17.200 Nicotine dependence, unspecified, uncomplicated; Z88.6 Allergy status to analgesic agent

== ENCOUNTER 2021-09-12 09:19 | Emergency (ER) | payer MEDICARE ==
[~2021-09-12] VITALS: Ht 182.9 cm; Wt 96.8 kg
[2021-09-12] MEDS ORDERED: medical marijuana INH (09:38)
[2021-09-12] MEDS ORDERED: HYDR25OIN TOP (10:23)
[2021-09-12 10:56] VITALS: BP 131/82
== END 2021-09-12 11:03 | disposition home or self-care (01) ==
LOC: M ED 09:19
DX: L90.5 Scar conditions and fibrosis of skin (principal); Z88.6 Allergy status to analgesic agent

== ENCOUNTER → 2021-09-15 | Outpatient (CLI) | payer MEDICARE, MEDICAID ==
[~2021-09-15] MED LIST changes: +HYDR25OIN TOP; +medical marijuana INH
== END ==
LOC: M PLAIMG 12:54
PROVIDERS: ATTEND Physician Assistant
DX: M94.271 Chondromalacia, right ankle and joints of right foot (principal); M79.671 Pain in right foot

== ENCOUNTER → 2021-11-03 | Outpatient (CLI) | payer MEDICARE, MEDICAID | LOC: M LABSMTC 11:17 | PROVIDERS: ATTEND Anesthesiology | DX: Z01.812 Encounter for preprocedural laboratory examination (principal); Z20.822 Contact with and (suspected) exposure to COVID-19 ==

== ENCOUNTER 2021-11-08 11:43 | Day surgery (SDC) | payer MEDICARE, MEDICAID ==
[~2021-11-08] VITALS: Ht 182.9 cm; Wt 91.2 kg
[~2021-11-08 11:43] MED LIST changes: +ceFAZolin SOD 2 GM in IV 1 EA IV ONE
[2021-11-08] MEDS ORDERED: propofoL 200 MG/20 ML VIAL As Ordered ONE (13:04)
[2021-11-08] MEDS ORDERED: fentaNYL 100 MCG/2 ML INJECTION As Ordered ONE (13:04)
[2021-11-08] MEDS ORDERED: MIDAZOLAM INJ 2MG/2ML VIAL (J2250 PER 1MG) As Ordered ONE (13:04)
[2021-11-08] MEDS ORDERED: INSULIN LISPRO (NovoLOG) PER UNIT SC PRN (13:10)
[2021-11-08] MEDS ORDERED: LR 1,000 ML IV SCH (13:10)
[2021-11-08] MEDS ORDERED: ONDANSETRON 4MG/2ML VIAL As Ordered ONE (13:18)
[2021-11-08] MEDS ORDERED: dexameTHASONE 4 MG/ML 1ML VIAL (J1100 PER 1MG) As Ordered ONE (13:18)
[2021-11-08] MEDS ORDERED: LIDOCAINE 2% 100MG/5ML SDV (FOR ANES.) As Ordered ONE (13:18)
[2021-11-08] MEDS ORDERED: ROCURONIUM BROMIDE 50 MG/5 ML VIAL As Ordered ONE (13:18)
[2021-11-08] MEDS ORDERED: BUPIVACAINE HCL 0.5% 30ML VIAL As Ordered ONE (13:20)
[2021-11-08] MEDS ORDERED: LIDOCAINE 1% SDV 30ML VIAL As Ordered ONE (13:20)
[2021-11-08] MEDS ORDERED: SUGAMMADEX SODIUM 500 MG/5 ML VIAL (BRIDION) As Ordered ONE (14:27)
[2021-11-08] MEDS ORDERED: HYDR-3713 PO (14:42)
[2021-11-08 16:15] VITALS: BP 132/79
== END 2021-11-08 16:18 | disposition home or self-care (01) ==
LOC: M SDC 11:43
PROVIDERS: ATTEND Podiatrist Foot & Ankle Surgery
DX: M25.571 Pain in right ankle and joints of right foot (principal); F17.210 Nicotine dependence, cigarettes, uncomplicated; K21.9 Gastro-esophageal reflux disease without esophagitis; Z86.718 Personal history of other venous thrombosis and embolism; Z88.8 Allergy status to other drugs, medicaments and biological substances
CPT/HCPCS: 28120; 76000; 88304; 88311; J0690; J1100; J2250; J2405; J3010

== ENCOUNTER 2021-12-01 13:06 | Emergency (ER) | payer MEDICARE, MEDICAID ==
[~2021-12-01] VITALS: Ht 182.9 cm; Wt 92.4 kg
[~2021-12-01 13:06] MED LIST changes: +HYDR-3713 PO; -ceFAZolin SOD 2 GM in IV 1 EA IV ONE
[2021-12-01] MEDS ORDERED: MUPI30CR TOP (15:20)
[2021-12-01] MEDS ORDERED: MUPIROCIN 2% OINT 22 GM TUBE TOP ONE (15:20)
[2021-12-01 15:51] VITALS: BP 133/78
== END 2021-12-01 15:52 | disposition home or self-care (01) ==
LOC: M ED 13:06
DX: T81.31XA Disruption of external operation (surgical) wound, not elsewhere classified, initial encounter (principal); W22.8XXA Striking against or struck by other objects, initial encounter; F17.200 Nicotine dependence, unspecified, uncomplicated; Z88.6 Allergy status to analgesic agent

== ENCOUNTER 2021-12-16 07:23 | Emergency (ER) | payer MEDICARE, MEDICAID ==
[~2021-12-16] VITALS: Ht 182.9 cm; Wt 93.9 kg
[~2021-12-16 07:23] MED LIST changes: +MUPI30CR TOP
[2021-12-16] MEDS ORDERED: DERMABOND TOPICAL SKIN ADHESIVE TOP ONE (09:15)
[2021-12-16 09:31] VITALS: BP 125/80
== END 2021-12-16 09:40 | disposition home or self-care (01) ==
LOC: M ED 07:23
DX: S01.112A Laceration without foreign body of left eyelid and periocular area, initial encounter (principal); W54.1XXA Struck by dog, initial encounter; Y92.009 Unspecified place in unspecified non-institutional (private) residence as the place of occurrence of the external cause; Z88.6 Allergy status to analgesic agent

== ENCOUNTER 2022-02-04 22:05 | Emergency (ER) | payer MEDICARE, MEDICAID ==
[~2022-02-04] VITALS: Ht 182.9 cm; Wt 94.4 kg
[2022-02-04 22:07] VITALS: BP 125/62
== END 2022-02-04 23:56 | disposition left against medical advice (07) ==
LOC: M ED 22:05
DX: Z53.9 Procedure and treatment not carried out, unspecified reason (principal)

== ENCOUNTER 2022-04-18 16:17 | Emergency (ER) | payer MEDICARE, MEDICAID ==
[~2022-04-18] VITALS: Ht 182.9 cm; Wt 93.1 kg
[2022-04-18 16:18] VITALS: BP 130/72
== END 2022-04-18 17:15 | disposition left against medical advice (07) ==
LOC: M ED 16:17
DX: Z53.21 Procedure and treatment not carried out due to patient leaving prior to being seen by health care provider (principal)

== ENCOUNTER 2022-04-22 19:58 | Emergency (ER) | payer MEDICARE, MEDICAID ==
[~2022-04-22] VITALS: Ht 182.9 cm; Wt 93.6 kg
[2022-04-22 19:58] VITALS: BP 117/59
[2022-04-22] MEDS ORDERED: KETOROLAC 60MG 2ML VIAL IM ONE (21:50)
[2022-04-22] MEDS ORDERED: LIDOCAINE 5% (LIDODERM) PATCH TD ONE (21:50)
[2022-04-22] MEDS ORDERED: METH-1165 PO (23:29)
[2022-04-22] MEDS ORDERED: ASPE4PAD TOP (23:29)
[2022-04-22] MEDS ORDERED: NAPR-837 PO (23:29)
[2022-04-22] MEDS ORDERED: methocarbamoL 750 MG TAB PO ONE (23:35)
== END 2022-04-22 23:42 | disposition home or self-care (01) ==
LOC: M ED 19:58
DX: S30.0XXA Contusion of lower back and pelvis, initial encounter (principal); W10.9XXA Fall (on) (from) unspecified stairs and steps, initial encounter; F17.200 Nicotine dependence, unspecified, uncomplicated; F19.10 Other psychoactive substance abuse, uncomplicated; Z79.899 Other long term (current) drug therapy; Z88.6 Allergy status to analgesic agent
CPT/HCPCS: 72110; 72170; 96372; 99282; J1885

== ENCOUNTER 2022-05-10 08:16 | Emergency (ER) | payer MEDICARE, MEDICAID ==
[~2022-05-10] VITALS: Ht 182.9 cm; Wt 92.9 kg
[~2022-05-10 08:16] MED LIST changes: +ASPE4PAD TOP; +METH-1165 PO
[2022-05-10] MEDS ORDERED: HYDROCORTISONE 1% CREAM 30 GM TOP STA (09:36)
[2022-05-10 10:06] VITALS: BP 115/60
== END 2022-05-10 10:09 | disposition home or self-care (01) ==
LOC: M ED 08:16
DX: R21 Rash and other nonspecific skin eruption (principal); L29.9 Pruritus, unspecified; R56.9 Unspecified convulsions; K21.9 Gastro-esophageal reflux disease without esophagitis; Z90.89 Acquired absence of other organs; Z88.6 Allergy status to analgesic agent; Z79.899 Other long term (current) drug therapy

== ENCOUNTER → 2022-06-26 | Outpatient (CLI) | payer MEDICARE, MEDICAID | LOC: M PLAIMG 07:29 | PROVIDERS: ATTEND Orthopaedic Surgery | DX: M25.571 Pain in right ankle and joints of right foot (principal) ==

== ENCOUNTER 2023-01-15 16:01 | Emergency (ER) | payer MEDICARE, MEDICAID ==
[~2023-01-15] VITALS: Ht 182.9 cm; Wt 95.9 kg
[~2023-01-15 16:01] MED LIST changes: -ASPE16CR TOP; +LIDO76.52 TOP
[2023-01-15 16:09] VITALS: BP 149/86; TEMP 98.4; O2SAT 100
[2023-01-15] MEDS ORDERED: LIDOCAINE 1% MDV 20ML VIAL SC ONE (19:10)
[2023-01-15] MEDS ORDERED: AMOX500C PO (19:44)
[2023-01-15] MEDS ORDERED: AMOXICILLIN 500 MG CAP PO ONE (19:45)
== END 2023-01-15 19:52 | disposition home or self-care (01) ==
LOC: M ED 16:01 → EDBD 16:01 → M ED 19:52
DX: S01.511A Laceration without foreign body of lip, initial encounter (principal); W22.8XXA Striking against or struck by other objects, initial encounter; Y92.009 Unspecified place in unspecified non-institutional (private) residence as the place of occurrence of the external cause; Y93.89 Activity, other specified; Y99.8 Other external cause status; R56.9 Unspecified convulsions; K21.9 Gastro-esophageal reflux disease without esophagitis; Z88.6 Allergy status to analgesic agent; Z79.899 Other long term (current) drug therapy

== ENCOUNTER 2023-04-04 13:47 | Emergency (ER) | payer MEDICARE, MEDICAID ==
[~2023-04-04] VITALS: Ht 182.9 cm; Wt 95.5 kg
[~2023-04-04 13:47] MED LIST changes: +AMOX500C PO
[2023-04-04 13:59] VITALS: BP 122/73; TEMP 98.8; O2SAT 96
[2023-04-04] MEDS ORDERED: PREG25CA3 (14:06)
[2023-04-04] MEDS ORDERED: MELO15TA28 (14:06)
[2023-04-04] MEDS ORDERED: CEPHALEXIN 500 MG CAP PO ONE (16:50)
[2023-04-04] MEDS ORDERED: LIDOCAINE 1% MDV 20ML VIAL SC ONE (16:50)
[2023-04-04] MEDS ORDERED: BOOSTRIX VACCINE (TETANUS/DIPHTH/ACEL. PERTUSSIS) 0.5ML SYR IM ONE (16:50)
[2023-04-04] MEDS ORDERED: CEPH500C PO (17:04)
== END 2023-04-04 17:38 | disposition home or self-care (01) ==
LOC: M ED 13:47
DX: S61.216A Laceration without foreign body of right little finger without damage to nail, initial encounter (principal); W23.2XXA Caught, crushed, jammed or pinched between a moving and stationary object, initial encounter; Y92.009 Unspecified place in unspecified non-institutional (private) residence as the place of occurrence of the external cause; Y93.89 Activity, other specified; F17.200 Nicotine dependence, unspecified, uncomplicated; Z88.6 Allergy status to analgesic agent

== ENCOUNTER 2023-04-16 06:24 | Emergency (ER) | payer MEDICARE, MEDICAID ==
[~2023-04-16] VITALS: Ht 182.9 cm; Wt 97.6 kg
[~2023-04-16 06:24] MED LIST changes: +MELO15TA28; +PREG25CA3
[2023-04-16 06:26] VITALS: BP 127/74; TEMP 97; O2SAT 97
== END 2023-04-16 06:35 | disposition left against medical advice (07) ==
LOC: M ED 06:24
DX: Z53.21 Procedure and treatment not carried out due to patient leaving prior to being seen by health care provider (principal)

== ENCOUNTER 2023-06-01 23:39 | Emergency (ER) | payer MEDICARE, MEDICAID ==
[~2023-06-01] VITALS: Ht 182.9 cm; Wt 97.0 kg
[2023-06-02] MEDS ORDERED: CEPHALEXIN 500 MG CAP PO ONE (01:25)
[2023-06-02] MEDS ORDERED: IBUPROFEN 800 MG TAB PO ONE (01:25)
[2023-06-02] MEDS ORDERED: CEPH500C PO (01:51)
[2023-06-02 02:00] VITALS: BP 114/62; TEMP 98; O2SAT 99
[2023-06-02 03:11] LABS: RSV AMPLIFICATION NEGATIVE (NEGATIVE)
[2023-06-03] MEDS ORDERED: propofoL 200 MG/20 ML VIAL As Ordered ONE (09:12)
== END 2023-06-02 02:30 | disposition home or self-care (01) ==
LOC: M ED 23:39
DX: L03.032 Cellulitis of left toe (principal); L60.0 Ingrowing nail; Z86.718 Personal history of other venous thrombosis and embolism; F17.200 Nicotine dependence, unspecified, uncomplicated; Z79.899 Other long term (current) drug therapy; Z88.6 Allergy status to analgesic agent

== ENCOUNTER → 2023-06-21 | Outpatient (CLI) | payer MEDICARE, MEDICAID ==
[2023-06-21 13:45] LABS: BASO # 0.1 10^3/uL (0.0-0.2); BASO % 0.8 % (0.0-1.0); EOS # 0.3 10^3/uL (0.0-0.5); HEMATOCRIT 44.9 % (42.0-52.0); HEMOGLOBIN 15.5 g/dl (13.5-17.5); LYMPH # 1.7 10^3/uL (1.5-5.0); LYMPH % 25.2 % (24.0-44.0); MEAN CORPUSCULAR HGB CONC 34.5 g/dl (32.0-36.5); MEAN CORPUSCULAR VOLUME 92.8 fl (80.0-96.0); MONO # 0.8 10^3/uL (0.0-0.8); MONO % 11.4 % (2.0-8.0); NEUTROPHILS # 3.8 10^3/uL (1.5-8.5); NEUTROPHILS % 58.3 % (36.0-66.0); PLATELET COUNT, AUTOMATED 183 10^3/uL (150-450); RED BLOOD COUNT 4.84 10^6/uL (4.30-6.10); WHITE BLOOD COUNT 6.6 10^3/uL (4.0-10.0)
[2023-06-21 14:12] LABS: ALBUMIN 3.9 G/DL (3.2-5.2); ALKALINE PHOSPHATASE 66 U/L (46-116); ALT/SGPT 42 U/L (7.0-40); AST/SGOT 24 U/L (<34); BILIRUBIN,TOTAL 0.7 MG/DL (0.3-1.2); BLOOD UREA NITROGEN 19 MG/DL (9-23); CALCIUM LEVEL 9.2 MG/DL (8.5-10.1); CARBON DIOXIDE LEVEL 29 MMOL/L (20-31); CHLORIDE LEVEL 106 MMOL/L (98-107); CREATININE FOR GFR 1.05 MG/DL (0.70-1.30); GLOMERULAR FILTRATION RATE > 60.0 (>60); GLUCOSE, FASTING 95 MG/DL (60-100); POTASSIUM SERUM 4.2 MMOL/L (3.5-5.1); SODIUM LEVEL 139 MMOL/L (136-145); TOTAL PROTEIN 6.9 G/DL (5.7-8.2)
== END ==
LOC: M LAB 13:04
PROVIDERS: ATTEND Orthopaedic Surgery
DX: Z00.01 Encounter for general adult medical examination with abnormal findings (principal); M25.551 Pain in right hip; D64.9 Anemia, unspecified

== ENCOUNTER → 2023-06-21 | Outpatient (CLI) | payer MEDICARE, MEDICAID ==
[2023-06-21 13:45] LABS: HEMATOCRIT 45.4 % (42.0-52.0); HEMOGLOBIN 15.6 g/dl (13.5-17.5); MEAN CORPUSCULAR HEMOGLOBIN 31.7 pg (27.0-33.0); MEAN CORPUSCULAR HGB CONC 34.4 g/dl (32.0-36.5); MEAN CORPUSCULAR VOLUME 92.3 fl (80.0-96.0); PLATELET COUNT, AUTOMATED 179 10^3/uL (150-450); RED BLOOD COUNT 4.92 10^6/uL (4.30-6.10)
[2023-06-21 14:13] LABS: ALBUMIN 3.9 G/DL (3.2-5.2); ALKALINE PHOSPHATASE 66 U/L (46-116); ALT/SGPT 44 U/L (7.0-40); AST/SGOT 24 U/L (<34); BILIRUBIN,TOTAL 0.8 MG/DL (0.3-1.2); BLOOD UREA NITROGEN 20 MG/DL (9-23); CARBON DIOXIDE LEVEL 29 MMOL/L (20-31); CHLORIDE LEVEL 108 MMOL/L (98-107); CREATININE FOR GFR 1.05 MG/DL (0.70-1.30); GLOMERULAR FILTRATION RATE > 60.0 (>60); GLUCOSE, FASTING 92 MG/DL (60-100); POTASSIUM SERUM 4.4 MMOL/L (3.5-5.1); SODIUM LEVEL 141 MMOL/L (136-145); TOTAL PROTEIN 6.8 G/DL (5.7-8.2)
[2023-06-24 07:39] LABS: WHITE BLOOD COUNT 6.7 10^3/uL (4.0-10.0)
== END ==
LOC: M LAB 13:08
PROVIDERS: ATTEND Physician Assistant
DX: Z00.01 Encounter for general adult medical examination with abnormal findings (principal); D64.9 Anemia, unspecified

== ENCOUNTER → 2023-10-11 | Outpatient (CLI) | payer MEDICARE, MEDICAID | LOC: M RAD 12:44 | PROVIDERS: ATTEND Physician Assistant | DX: M25.521 Pain in right elbow (principal) ==

== ENCOUNTER 2023-12-28 21:06 | Emergency (ER) | payer MEDICARE, MEDICAID ==
[~2023-12-28] VITALS: Ht 182.9 cm; Wt 93.6 kg
[2023-12-28 21:07] VITALS: BP 137/99; TEMP 97.2; O2SAT 96
== END 2023-12-28 23:22 | disposition left against medical advice (07) ==
LOC: M ED 21:06
DX: Z53.21 Procedure and treatment not carried out due to patient leaving prior to being seen by health care provider (principal)

== ENCOUNTER → 2024-04-06 | Outpatient (CLI) | payer MEDICARE, MEDICAID ==
[~2024-04-06] MED LIST changes: +GABA-1172 PO; -GABA-282 PO
== END ==
LOC: M RAD 16:19
PROVIDERS: ATTEND Physician Assistant
DX: Z00.00 Encounter for general adult medical examination without abnormal findings (principal)

== ENCOUNTER → 2024-05-04 | Outpatient (CLI) | payer MEDICARE, MEDICAID ==
[~2024-05-04] MED LIST changes: +ISOVUE-370 76% 100ML VIAL ONE
== END ==
LOC: M PLAIMG 08:57
PROVIDERS: ATTEND Physician Assistant
DX: H53.8 Other visual disturbances (principal); R47.81 Slurred speech
CPT/HCPCS: 70470; Q9967

== ENCOUNTER 2024-05-09 19:01 | Emergency (ER) | payer MEDICARE, MEDICAID ==
[~2024-05-09] VITALS: Ht 182.9 cm; Wt 95.2 kg
[~2024-05-09 19:01] MED LIST changes: -ISOVUE-370 76% 100ML VIAL ONE
[2024-05-09 20:53] LABS: BASO % 0.5 % (0.0-1.0); EOS # 0.4 10^3/uL (0.0-0.5); EOS % 6.3 % (0.0-3.0); HEMATOCRIT 42.9 % (42.0-52.0); HEMOGLOBIN 14.6 g/dl (13.5-17.5); LYMPH # 2.5 10^3/uL (1.5-5.0); LYMPH % 39.7 % (24.0-44.0); MEAN CORPUSCULAR HEMOGLOBIN 31.7 pg (27.0-33.0); MEAN CORPUSCULAR VOLUME 93.3 fl (80.0-96.0); MONO # 0.5 10^3/uL (0.0-0.8); MONO % 8.2 % (2.0-8.0); NEUTROPHILS # 2.8 10^3/uL (1.5-8.5); NEUTROPHILS % 45.1 % (36.0-66.0); PLATELET COUNT, AUTOMATED 184 10^3/uL (150-450); WHITE BLOOD COUNT 6.2 10^3/uL (4.0-10.0)
[2024-05-09 21:02] LABS: ERYTHROCYTE SEDIMENTATION RATE 15 mm/hr (0-15)
[2024-05-09 21:18] LABS: C REACTIVE PROTEIN QUANTITATIV < 0.40 MG/DL (<1.0)
[2024-05-09 21:19] LABS: BLOOD UREA NITROGEN 16 MG/DL (9-23); CARBON DIOXIDE LEVEL 26 MMOL/L (20-31); CHLORIDE LEVEL 109 MMOL/L (98-107); CREATININE FOR GFR 1.11 MG/DL (0.70-1.30); GLOMERULAR FILTRATION RATE > 60.0 (>60); GLUCOSE, FASTING 107 MG/DL (60-100); POTASSIUM SERUM 4.2 MMOL/L (3.5-5.1); SODIUM LEVEL 140 MMOL/L (136-145)
[2024-05-09 22:27] VITALS: BP 118/71; TEMP 97.2; O2SAT 95
== END 2024-05-09 22:29 | disposition home or self-care (01) ==
LOC: M ED 19:01
DX: M70.21 Olecranon bursitis, right elbow (principal); K21.9 Gastro-esophageal reflux disease without esophagitis; G40.89 Other seizures; F17.210 Nicotine dependence, cigarettes, uncomplicated; Z88.8 Allergy status to other drugs, medicaments and biological substances; Z79.2 Long term (current) use of antibiotics; Z79.899 Other long term (current) drug therapy

== ENCOUNTER → 2024-08-11 | Outpatient (CLI) | payer MEDICARE, MEDICAID | LOC: M RAD 13:26 | PROVIDERS: ATTEND Physician Assistant | DX: M54.2 Cervicalgia (principal); M54.12 Radiculopathy, cervical region ==

== ENCOUNTER 2025-04-23 11:34 | Emergency (ER) | payer MEDICARE, MEDICAID ==
[~2025-04-23] VITALS: Ht 182.9 cm; Wt 89.9 kg
[~2025-04-23 11:34] MED LIST changes: -IBUP-1022 PO; +IBUP600T42 PO
[2025-04-23 11:41] VITALS: BP 126/64; TEMP 98; O2SAT 100
== END 2025-04-23 13:50 | disposition left against medical advice (07) ==
LOC: M ED 11:34
DX: Z53.21 Procedure and treatment not carried out due to patient leaving prior to being seen by health care provider (principal)

== ENCOUNTER 2025-05-06 22:11 | Emergency (ER) | payer MEDICARE, MEDICAID ==
[~2025-05-06] VITALS: Ht 182.9 cm; Wt 90.9 kg
[2025-05-07] MEDS: FLUORESCEIN OPHTH 1 MG STRIP OD ONE (00:11)
[2025-05-07] MEDS: PROPARACAINE 0.5% OPHTH SOL 15ML OD ONE (00:11)
[2025-05-07] MEDS: ERYTHROMYCIN OPHTH OINT OD ONE (00:48)
[2025-05-07] MEDS ORDERED: ERYT5OIN25 OD (00:55)
[2025-05-07 01:22] VITALS: BP 18/74; TEMP 97.7; O2SAT 98
== END 2025-05-07 01:22 | disposition home or self-care (01) ==
LOC: M ED 22:11
DX: S05.01XA Injury of conjunctiva and corneal abrasion without foreign body, right eye, initial encounter (principal); Y92.9 Unspecified place or not applicable; Y93.9 Activity, unspecified; Y99.9 Unspecified external cause status; F41.9 Anxiety disorder, unspecified; F32.A Depression, unspecified; F17.210 Nicotine dependence, cigarettes, uncomplicated; Z88.6 Allergy status to analgesic agent; Z79.2 Long term (current) use of antibiotics; Z79.899 Other long term (current) drug therapy

== ENCOUNTER → 2025-05-24 | Outpatient (CLI) | payer MEDICARE, MEDICAID ==
[~2025-05-24] MED LIST changes: +ERYT5OIN25 OD
== END ==
LOC: M WUC 11:32
PROVIDERS: ATTEND Physician Assistant
DX: M25.521 Pain in right elbow (principal)

== ENCOUNTER → 2025-06-02 | Outpatient (CLI) | payer MEDICARE, MEDICAID | LOC: M WUC 14:36 | PROVIDERS: ATTEND Internal Medicine | DX: M54.12 Radiculopathy, cervical region (principal) ==

== ENCOUNTER 2025-06-12 04:47 | Emergency (ER) | payer MEDICARE, MEDICAID ==
[~2025-06-12] VITALS: Ht 182.9 cm; Wt 87.3 kg
[2025-06-12 09:17] VITALS: BP 112/54; TEMP 96.3; O2SAT 97
== END 2025-06-12 09:55 | disposition home or self-care (01) ==
LOC: M ED 04:47
DX: S99.911A Unspecified injury of right ankle, initial encounter (principal); Y92.019 Unspecified place in single-family (private) house as the place of occurrence of the external cause; Y93.9 Activity, unspecified; Y99.9 Unspecified external cause status; W01.0XXA Fall on same level from slipping, tripping and stumbling without subsequent striking against object, initial encounter; Z88.6 Allergy status to analgesic agent; Z79.2 Long term (current) use of antibiotics; Z79.899 Other long term (current) drug therapy